=== PATIENT | male | born 1945 | race Caucasian/White ===

== ENCOUNTER → 2016-09-27 | Outpatient (CLI) | payer OTHER | END | disposition home or self-care (01) | LOC: MW.CHNEURO 10:24 | PROVIDERS: ATTEND Psychiatry & Neurology Neuromuscular Medicine | DX: E11.42 Type 2 diabetes mellitus with diabetic polyneuropathy (principal) | CPT/HCPCS: 36415; 82607 ==

== ENCOUNTER 2016-11-02 17:21 | Emergency (ER) | payer OTHER ==
[2016-11-02 17:45] VITALS: BP 140/66
[2016-11-02] MEDS ORDERED: Sodium Chloride 0.9% 1,000 ML IV ONE (18:03)
--- NOTE | 2016-11-02 18:23 | EDM.PDOC ---
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 Negative for costovertebral tenderness. Pelvis: Stable nontender. Genitourinary: Deferred. Rectal: Deferred. Extremities: Left foot has a third and fourth digit with excoriated areas over the malar and distally there is no appreciable discoloration between the digits . Second digit amputation noted Neuro: Awake, alert, oriented. Diagnostics: CBC CMP blood culture x2 CRP x-ray left foot Therapeutics: Vancomycin 1 g IV Impression: #1 diabetic foot Definitive disposition and diagnosis as appropriate pending reevaluation and review of above. Left Feet Pain Score (Numeric/FACES): 0 - Related Data Allergies Allergy/AdvReac Type Severity Reaction Status Date / Time cefaclor [From [facility]] Allergy Rash Verified 11/02/16 17:39 Home Meds: Home Meds Aspirin 325 mg PO DAILY 01/26/15 [History] Atenolol 25 mg PO DAILY 01/26/15 [History] Cholecalciferol (Vitamin D3) [Vitamin D3] 3,000 unit PO DAILY 01/26/15 [History] Clopidogrel [Plavix] 75 mg PO DAILY 01/26/15 [History] Hydrochlorothiazide 25 mg PO DAILY 01/26/15 [History] Insulin Glarg,Human.Rec.Analog [LantUS Solostar] 50 units SUBCUT BID 01/26/15 [ History] Lisinopril 20 mg PO BID 01/26/15 [History] Multivitamin [Daily Multiple Vitamin] 1 tab PO DAILY 01/26/15 [History] Coalgate-3 Fatty Acids [Coalgate-3] 1,000 mg PO DAILY 01/26/15 [History] glyBURIDE [Glyburide] 5 mg PO DAILY 01/26/15 [History] metFORMIN [Glucophage] 1,000 mg PO BIDMEALS 01/26/15 [History] Past Medical History HEENT History: Reports: Impaired Vision Cardiovascular History: Reports: Hypertension Other Cardiovascular History: cardiac ablation therapy Respiratory History: Reports: None Gastrointestinal History: Reports: None Genitourinary History: Reports: None Musculoskeletal History: Reports: Amputation Other Musculoskeletal History: left second toe Neurological History: Reports: Neuropathy, Diabetic Psychiatric History: Reports: None Endocrine/Metabolic History: Reports: Diabetes, Type II Hematologic History: Reports: None Oncologic (Cancer) History: Reports: None - Infectious Disease History Infectious Disease History: Reports: None - Past Surgical History Head Surgeries/Procedures: Reports: None Social & Family History - Family History Family Medical History: Noncontributory - Tobacco Use Smoking Status *Q: Former Smoker Used Tobacco, but Quit: No Month Tobacco Last Used: 1999 - Caffeine Use Caffeine Use: Reports: Coffee - Recreational Drug Use Recreational Drug Use: No Review of Systems - Review of Systems Review Of Systems: ROS reveals no pertinent complaints other than HPI. Trauma Exam - Physical Exam Exam: See Below (See dictation) Course - Vital Signs Text/Narrative:: Lengthy discussion regarding all options under the current circumstances and with the resource availability and prior history [facility] patient opts for discharge and will proceed by private vehicle with family to [facility]. Last Recorded V/S: Last Vital Signs Temp 37.0 C 11/02/16 17:44 Pulse 68 11/02/16 17:44 Resp 20 11/02/16 17:44 BP 140/66 11/02/16 17:44 Pulse Ox 96 11/02/16 17:44 - Orders/Labs/Meds Orders: Active Orders 24 hr Category Date Time Status Foot 2V Lt [CR] Stat Exams 11/02/16 18:03 Taken C-REACTIVE PROTEIN [CHEM] Stat Lab 11/02/16 18:14 Received COMPREHENSIVE METABOLIC PN,CMP [CHEM] Stat Lab 11/02/16 18:14 Received CULTURE BLOOD [BC] Stat Lab 11/02/16 18:14 Results CULTURE BLOOD [BC] Stat Lab 11/02/16 18:22 Received Sodium Chloride 0.9% [Normal Saline] 1,000 ml Med 11/02/16 18:03 Active IV STAT Vancomycin [Vancocin] 1 gm Med 11/02/16 18:03 Active Sodium Chloride 0.9% [Normal Saline] 250 ml IV ONETIME Blood Culture x2 Reflex Set [OM.PC] Stat Oth 11/02/16 18:03 Ordered Medication Orders Sodium Chloride (Normal Saline) 1,000 mls @ 999 mls/hr IV STAT ONE Stop: 11/02/16 19:03 Last Infusion: 11/02/16 18:18 Dose: 300 mls/hr Admin: 11/02/16 18:15 Dose: 999 mls/hr Vancomycin HCl 1 gm/ Sodium (Chloride) 250 mls @ 250 mls/hr IV ONETIME ONE Stop: 11/02/16 19:02 Last Admin: 11/02/16 18:15 Dose: 250 mls/hr Labs: Laboratory Tests 11/02/16 Range/Units 18:14 WBC 12.94 H (4.0-11.0) K/uL RBC 4.62 (4.50-5.90) M/uL Hgb 13.7 (13.0-17.0) g/dL Hct 41.1 (38.0-50.0) % MCV 89.0 (80.0-98.0) fL MCH 29.7 (27.0-32.0) pg MCHC 33.3 (31.0-37.0) g/dL RDW Std Deviation 46.3 (28.0-62.0) fl RDW Coeff of Brian 14 (11.0-15.0) % Plt Count 263 (150-400) K/uL MPV 10.00 (7.40-12.00) fL Neut % (Auto) 58.9 (48.0-80.0) % Lymph % (Auto) 33.1 (16.0-40.0) % [place] % (Auto) 6.3 (0.0-15.0) % Eos % (Auto) 1.5 (0.0-7.0) % Baso % (Auto) 0.2 (0.0-1.5) % Neut # (Auto) 7.6 H (1.4-5.7) K/uL Lymph # (Auto) 4.3 H (0.6-2.4) K/uL [place] # (Auto) 0.8 (0.0-0.8) K/uL Eos # (Auto) 0.2 (0.0-0.7) K/uL Baso # (Auto) 0.0 (0.0-0.1) K/uL Nucleated RBC % 0.0 /100WBC Nucleated RBCs # 0 K/uL Meds: Medications Generic Name Dose Route Start Last Admin Trade Name Yen PRN Reason Stop Dose Admin Sodium Chloride 1,000 mls @ 999 mls/hr 11/02/16 18:03 11/02/16 18:18 Normal Saline IV 11/02/16 19:03 300 mls/hr STAT ONE Infusion Vancomycin HCl 1 gm/ Sodium 250 mls @ 250 mls/hr 11/02/16 18:03 11/02/16 18: 15 Chloride IV 11/02/16 19:02 250 mls/hr ONETIME ONE Administration Departure - Departure Time of Disposition: 18:48 Disposition: Home, Self-Care 01 Condition: undetermined Clinical Impression: Diabetic foot - Discharge Information Forms: ED Department Discharge Additional Instructions: The following information is given to patients seen in the emergency department who are being discharged to home. This information is to outline your options for follow-up care. We provide all patients seen in our emergency department with a follow-up referral. The need for follow-up, as well as the timing and circumstances, are variable depending upon the specifics of your emergency department visit. If you don't have a primary care physician on staff, we will provide you with a referral. We always advise you to contact your personal physician following an emergency department visit to inform them of the circumstance of the visit and for follow-up with them and/or the need for any referrals to a consulting specialist. The emergency department will also refer you to a specialist when appropriate. This referral assures that you have the opportunity for followup care with a specialist. All of these measure are taken in an effort to provide you with optimal care, which includes your followup. Under all circumstances we always encourage you to contact your private physician who remains a resource for coordinating your care. When calling for followup care, please make the office aware that this follow-up is from your recent emergency room visit. If for any reason you are refused follow-up, please contact the [facility] emergency department at and asked to speak to the emergency department charge nurse. Proceed to [facility] as requested as discussed - My Orders Last 24 Hours: My Active Orders 11/02/16 18:03 Foot 2V Lt [CR] Stat Sodium Chloride 0.9% [Normal Saline] 1,000 ml IV STAT Vancomycin [Vancocin] 1 gm Sodium Chloride 0.9% [Normal Saline] 250 ml IV ONETIME Blood Culture x2 Reflex Set [OM.PC] Stat 11/02/16 18:14 C-REACTIVE PROTEIN [CHEM] Stat COMPREHENSIVE METABOLIC PN,CMP [CHEM] Stat CULTURE BLOOD [BC] Stat 11/02/16 18:22 CULTURE BLOOD [BC] Stat - Assessment/Plan Last 24 Hours: My Active Orders 11/02/16 18:03 Foot 2V Lt [CR] Stat Sodium Chloride 0.9% [Normal Saline] 1,000 ml IV STAT Vancomycin [Vancocin] 1 gm Sodium Chloride 0.9% [Normal Saline] 250 ml IV ONETIME Blood Culture x2 Reflex Set [OM.PC] Stat 11/02/16 18:14 C-REACTIVE PROTEIN [CHEM] Stat COMPREHENSIVE METABOLIC PN,CMP [CHEM] Stat CULTURE BLOOD [BC] Stat 11/02/16 18:22 CULTURE BLOOD [BC] Stat
[2016-11-02 18:50] LABS: CHLORIDE,CL 104 mmol/L (98-110); SODIUM,NA 140 mmol/L (136-146)
--- NOTE | 2016-11-06 10:09 | CR ---
EXAM DATE: 11/02/16 PATIENT'S AGE: 71 Patient: DASIA OROURKE Facility: [place], [place] Site . Site : 1945 Study: XRay Extremity Left foot [id number]/26/2017 6:32:14 PM Ordering Physician: Fausto Jasmine Final Report: INDICATION: Pain. Cannot feel part of his foot. COMPARISON: None. FINDINGS/IMPRESSION: Left foot, 2 views. No acute fracture identified. Status post amputation of the left 2nd toe at the level of the metatarsal neck. 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 No definite radiographic evidence of osteomyelitis. Diffuse mild soft tissue swelling. Small plantar calcaneal spur. Atherosclerotic vascular calcifications in the soft tissues. Dictated by Michael Hernández MD @ 11/02/2016 7:07:26 PM Dictated by: Michael Hernández MD @ 11/02/2016 19:08:10 (Electronic Signature) Report Signed by Proxy. SHEYLA
== END 2016-11-02 20:16 | disposition home or self-care (01) ==
LOC: MW.ED 17:21
DX: E11.621 Type 2 diabetes mellitus with foot ulcer (principal); L97.529 Non-pressure chronic ulcer of other part of left foot with unspecified severity; I10 Essential (primary) hypertension; Z79.82 Long term (current) use of aspirin; Z79.4 Long term (current) use of insulin; Z79.84 Long term (current) use of oral hypoglycemic drugs; Z89.022 Acquired absence of left finger(s); E11.40 Type 2 diabetes mellitus with diabetic neuropathy, unspecified
CPT/HCPCS: 36415; 73620; 80053; 85025; 86140; 87040; 96361; 96365; 99283; J3370; J7040; J7050; 99284

== ENCOUNTER 2017-09-02 07:34 | Day surgery (SDC) | payer OTHER ==
[~2017-09-02 07:34] MED LIST: Lactated Ringers 1,000 ML IV SCH
[2017-09-02] MEDS ORDERED: Propofol 200 MG/20 ML SDV ONE ×2 (07:40→09:21)
[2017-09-02] MEDS ORDERED: Lidocaine 2% 5 ML SDV ONE (07:40)
--- NOTE | 2017-09-02 08:16 | PCM.PREANE ---
Preanesthetic Assessment - Anesthesia/Transfusion/Family Hx Anesthesia History: Prior Anesthesia Without Reaction Other Type of Anesthesia Reaction Comment: states he "is hard to wake" Family History of Anesthesia Reaction: No Transfusion History: No Prior Transfusion(s) Intubation History: Unknown - Review of Systems General: No Symptoms, Night Sweats Cardiovascular: No Symptoms Gastrointestinal: Constipation Neurological: No Symptoms Other: Reports: None - Physical Assessment Height: 1.88 m Weight: 135.624 kg ASA Class: 3 Mental Status: Alert & Oriented x3 Airway Class: Mallampati = 2 Dentition: Reports: [place](s) (multiple upper front) Thyro-Mental Finger Breadths: 3 Mouth Opening Finger Breadths: 3 ROM/Head Extension: Limited/Partial Lungs: Clear to Auscultation, Normal Respiratory Effort Cardiovascular: Regular Rate, Regular Rhythm - Allergies Allergies/Adverse Reactions: Allergies Allergy/AdvReac Type Severity Reaction Status Date / Time cefaclor [From Ceclor] Allergy Rash Verified 08/28/17 08:15 - Blood Blood Available: No - Anesthesia Plan Pre-Op Medication Ordered: None - Acknowledgements Anesthesia Type Planned: MAC Pt an Appropriate Candidate for the Planned Anesthesia: Yes Alternatives and Risks of Anesthesia Discussed w Pt/Guardian: Yes Pt/Guardian Understands and Agrees with Anesthesia Plan: Yes PreAnesthesia Questionnaire HEENT History: Reports: Glaucoma, Impaired Vision, Other (See Below) Other HEENT History: wears glasses Cardiovascular History: Reports: Afib (on and off (h/o ablation)), CAD, High Cholesterol, Hypertension, [place], Stents (x4, last one in '08) Respiratory History: Reports: Sleep Apnea Other Respiratory History: does not use CPAP Gastrointestinal History: Reports: Colon Polyp, GERD, Helicobacter Pylori Genitourinary History: Reports: None Musculoskeletal History: Reports: Amputation, Back Pain, Chronic (with left radicular pain and occasional loss of motor control over left leg), Osteoarthritis Other Musculoskeletal History: amputation of left second toe, recurrent osteomyelitis left foot Neurological History: Reports: Neuropathy, Diabetic Psychiatric History: Reports: None Endocrine/Metabolic History: Reports: Diabetes, Type II, Obesity/BMI 30+ (BMI 38.4) Hematologic History: Reports: None Oncologic (Cancer) History: Reports: None - Infectious Disease History Infectious Disease History: Reports: None - Past Surgical History Head Surgeries/Procedures: Reports: None HEENT Surgical History: Reports: Cataract Surgery Cardiovascular Surgical History: Reports: Cardiac Ablation, Coronary Artery Bypass (CABG x3 in ), Coronary Artery Stent (x4 last one in ) GI Surgical History: Reports: Colonoscopy (3-4 years ago) Musculoskeletal Surgical History: Reports: Arthroscopic Knee Other Musculoskeletal Surgeries/Procedures:: hx left foot surgery due to infection ( toe amputation ) - SUBSTANCE USE Smoking Status *Q: Former Smoker Recreational Drug Use History: No - HOME MEDS Home Medications: Home Meds Aspirin 325 mg PO DAILY 01/26/15 [History] Atenolol 50 mg PO BID 01/26/15 [History] Clopidogrel [Plavix] 75 mg PO DAILY 01/26/15 [History] Hydrochlorothiazide 25 mg PO DAILY 01/26/15 [History] Lisinopril 20 mg PO BID 01/26/15 [History] Cyclobenzaprine HCl 10 mg PO ASDIRECTED PRN 08/28/17 [History] Diclofenac Sodium [Voltaren] 75 mg PO BID PRN 08/28/17 [History] Doxycycline Monohydrate 100 mg PO ASDIRECTED PRN 08/28/17 [History] Garlic [Garlic Oil] 1,000 mg PO ASDIRECTED PRN 08/28/17 [History] Insulin Glargine,Hum.Rec.Anlog [Lantus Solostar] 50 units SUBCUT BID 08/28/17 [ History] Latanoprost [Xalatan 0.005% Ophth Soln] 1 drop EYEBOTH BEDTIME 08/28/17 [History ] Multivitamin [Multivitamins] 1 tab PO DAILY 08/28/17 [History] Naproxen Sodium [Naproxen Sodium ER] 1 tab PO BID PRN 08/28/17 [History] Nitroglycerin 0.4 mg SL ASDIRECTED PRN 08/28/17 [History] Omeprazole 20 mg PO DAILY PRN 08/28/17 [History] Saxagliptin HCl [Onglyza] 5 mg PO DAILY 08/28/17 [History] Simvastatin 40 mg PO BEDTIME 08/28/17 [History] metFORMIN HCl [Metformin HCl] 1,000 mg PO BID 08/28/17 [History] traMADol HCl [Ultram] 50 mg PO ASDIRECTED PRN 08/28/17 [History] - CURRENT (IN HOUSE) MEDS Current Meds: Current Medications Lactated Ringer's (Ringers, Lactated) 1,000 mls @ 125 mls/hr IV ASDIRECTED DAVID Last Admin: 09/02/17 07:55 Dose: 125 mls/hr Discontinued Medications Lidocaine (Xylocaine-Mpf 2%) Confirm Administered Dose 5 ml .ROUTE .STK-MED ONE Stop: 09/02/17 07:41 Propofol (Diprivan 20 Ml) Confirm Administered Dose 400 mg .ROUTE .STK-MED ONE Stop: 09/02/17 07:41
[2017-09-02] MEDS ORDERED: Ondansetron 4 MG Tab.DIS PO PRN (09:50)
--- NOTE | 2017-09-02 09:54 | PCM.OPNOTE ---
- General Post-Op/Procedure Note Date of Surgery/Procedure: 09/02/17 Operative Procedure(s): Colonoscopy Pre Op Diagnosis: Change in bowel habits. Personal history of colon polyps Post-Op Diagnosis: Mild sigmoid diverticulosis Anesthesia Technique: MAC (ASA III) Primary Surgeon: Bladimir Tanner [employer] Field Supervisor: Yoni Talley Condition: Good Free Text/Narrative:: Dictation [id number] CPT CODE 40781
[2017-09-02] MEDS ORDERED: Lactated Ringers 1,000 ML IV SCH (10:00)
--- NOTE | 2017-09-02 10:20 | PCM48HPAN ---
Post Anesthesia Note - EVALUATION WITHIN 48HRS OF ANESTHETIC Vital Signs in Normal Range: Yes Patient Participated in Evaluation: Yes Respiratory Function Stable: Yes Airway Patent: Yes Cardiovascular Function Stable: Yes Hydration Status Stable: Yes Pain Control Satisfactory: Yes Nausea and Vomiting Control Satisfactory: Yes Mental Status Recovered: Yes Resp Rate: 16 - COMMENTS/OBSERVATIONS Free Text/Narrative:: No anesthesia problems, patient skipped recovery room phase of postoperative care.
[2017-09-02 11:32] VITALS: BP 119/57
--- NOTE | 2017-09-02 12:18 | OR ---
SURGEON: Bladimir Tanner M.D. DATE OF PROCEDURE: 09/02/2017 OPERATION PERFORMED: Colonoscopy. SERVICES DELIVERY DRIVER: Dr. Talley, PGY3. ANESTHESIA: MAC. ASA CLASSIFICATION: III. PREOPERATIVE DIAGNOSES: 1. Change in bowel habits. 2. Personal history of colon polyps. POSTOPERATIVE DIAGNOSIS: Mild diverticulosis. DESCRIPTION OF PROCEDURE: The patient was taken to the endoscopy room and positioned on the endoscopy table in the left lateral decubitus position. Time-out was called for appropriate identification of the patient and procedure. Monitored anesthesia care was provided. The colonoscope was inserted into the rectum and advanced with moderate difficulty to the cecum. Despite multiple maneuvers, we were never able to retroflex the colonoscope in the cecum. The cecum was identified by internal landmarks and external pressure. The colonoscope was then slowly withdrawn. The cecum, ascending colon, hepatic flexure, transverse colon, splenic flexure, and descending colon showed no tumors, polyps, diverticula, or angiodysplastic changes. A few small scattered diverticula were noted in the sigmoid colon. No stricture, spasm, or bleeding was noted. The colonoscope was withdrawn to the rectum and retroflexed to visualize the anal orifice from above. Again, no tumors or polyps were seen and there were no acute hemorrhoidal changes. The colonoscope was then straightened, the rectum aspirated, and the colonoscope removed. The patient tolerated the procedure well and was taken back to his room in stable condition. SEBAS / HENRIQUE /[id number]
== END 2017-09-02 10:10 | disposition home or self-care (01) ==
LOC: MW.SDS 07:34
PROVIDERS: ATTEND Surgery
DX: K57.30 Diverticulosis of large intestine without perforation or abscess without bleeding (principal); E11.42 Type 2 diabetes mellitus with diabetic polyneuropathy; E11.621 Type 2 diabetes mellitus with foot ulcer; L97.529 Non-pressure chronic ulcer of other part of left foot with unspecified severity; I25.10 Atherosclerotic heart disease of native coronary artery without angina pectoris; G47.30 Sleep apnea, unspecified; Z79.4 Long term (current) use of insulin; Z79.82 Long term (current) use of aspirin; Z79.899 Other long term (current) drug therapy; Z86.010 Personal history of colon polyps; Z88.1 Allergy status to other antibiotic agents; Z87.891 Personal history of nicotine dependence
CPT/HCPCS: 45378; J7120; J2704

== ENCOUNTER 2019-08-25 22:56 | Observation (INO) | payer OTHER ==
[2019-08-25] MEDS: Nitroglycerin 0.4 MG Tab.SL SL PRN ×2 (23:17→23:22)
--- NOTE | 2019-08-25 23:18 | EDM.PDOC ---
ED HPI GENERAL MEDICAL PROBLEM - General Chief Complaint: Chest Pain Stated Complaint: HIGH BLOOD PRESSURE/CHEST PAIN Time Seen by Provider: 08/25/19 23:02 Source of Information: Reports: Patient History Limitations: Reports: No Limitations - History of Present Illness INITIAL COMMENTS - FREE TEXT/NARRATIVE: HISTORY OF PRESENT ILLNESS: Patient is a 74-year-old male with history of diabetes, hypertension, hyperlipidemia, status post CABG x3, stents x4 who presents to the ER for complaints of elevated blood pressure by home reading, headache and chest pain. Patient has left lateral chest wall pain which she rates as 4-5 out of 10 in severity, intermittent in nature. Pain has been going on for months but was worse tonight. Has associated dyspnea. Denies any history of CHF or COPD. Patient is on Lasix. Denies any nausea vomiting or diaphoresis. No abdominal pain. Denies any blurred vision, slurred speech, weakness or paresthesias. Headache is not the first or the worst. Is similar to when he has had high blood pressure in the past. Fever or neck stiffness. Denies any rash. States he already took aspirin 324 mg today. Has family history of CAD. REVIEW OF SYSTEMS: Other than the symptoms associated with the present events, the following is reported with regard to recent health: General: (-) fever. HENT: (-) congestion. Respiratory: (-) cough. Cardiovascular: (+) chest pain. GI: (-) abdominal pain. : (-) urinary complaints. Musculoskeletal: (-) other aches or pains. Endocrine: (+) DM Neurological: (-) localized weakness. Skin: (-) rash PAST MEDICAL HISTORY: reviewed as per nursing notes SOCIAL HISTORY: reviewed as per nursing notes, MEDICATIONS: Per nurse's note ALLERGIES: Per nurse's note, reviewed by me PHYSICAL EXAMINATION: GENERALIZED APPEARANCE: well developed, well nourished in no distress VITAL SIGNS: Per nurse's note, reviewed by me SKIN: Warm, dry; (-) cyanosis; (-) rash. HEAD: (-) scalp swelling, (-) tenderness. EYES: (-) conjunctival pallor, (-) scleral icterus. ENMT: (-) stridor; mucous membranes moist. NECK: (-) tenderness, (-) stiffness, CHEST AND RESPIRATORY: (-) rales, (-) rhonchi, (-) wheezes; breath sounds equal bilaterally. HEART AND CARDIOVASCULAR: (-) irregularity; (-) murmur, (-) gallop. ABDOMEN AND GI: Soft; (-) tenderness, (-) guarding, (-) rebound, (-) palpable masses, EXTREMITIES: (-) deformity, (-) edema. NEURO AND PSYCH: Alert. Cranial nerves grossly intact; strength symmetric. NIHSS= 0 DIAGNOSTICS: EKG: sr at 60 bpm. nml axis. rbbb. no st elevation. CXR: as read by radiologist, reviewed by myself Labs ordered and reviewed. EMERGENCY DEPARTMENT COURSE AND TREATMENT: Patient's condition remained stable during Emergency Department evaluation. Patient already took ASA. Given NTG for chest pain as well as for HTN. BP improved to 149/62 and patient states he feels significantly better. Labs and diagnostics ordered. First troponin wnl. Pt with moderate risk HEART score, will require admission. Case d/w Dr. Clayton who kindly agrees to admit. PLAN AND FOLLOW-UP: admit - Related Data Allergies Allergy/AdvReac Type Severity Reaction Status Date / Time cefaclor [From Ceclor] Allergy Rash Verified 08/28/17 08:15 Home Meds: Home Meds Aspirin 325 mg PO DAILY 01/26/15 [History] Clopidogrel [Plavix] 75 mg PO DAILY 01/26/15 [History] Hydrochlorothiazide 25 mg PO DAILY 01/26/15 [History] Lisinopril 20 mg PO BID 01/26/15 [History] atenoloL [Atenolol] 50 mg PO BID 01/26/15 [History] Cyclobenzaprine HCl 10 mg PO ASDIRECTED PRN 08/28/17 [History] Diclofenac Sodium [Voltaren] 75 mg PO BID PRN 08/28/17 [History] Doxycycline Monohydrate 100 mg PO ASDIRECTED PRN 08/28/17 [History] Garlic [Garlic Oil] 1,000 mg PO ASDIRECTED PRN 08/28/17 [History] Insulin Glargine,Hum.Rec.Anlog [Lantus Solostar] 50 units SUBCUT BID 08/28/17 [ History] Latanoprost [Xalatan 0.005% Ophth Soln] 1 drop EYEBOTH BEDTIME 08/28/17 [History ] Multivitamin [Multivitamins] 1 tab PO DAILY 08/28/17 [History] Naproxen Sodium [Naproxen Sodium ER] 1 tab PO BID PRN 08/28/17 [History] Nitroglycerin 0.4 mg SL ASDIRECTED PRN 08/28/17 [History] Omeprazole 20 mg PO DAILY PRN 08/28/17 [History] Saxagliptin HCl [Onglyza] 5 mg PO DAILY 08/28/17 [History] Simvastatin 40 mg PO BEDTIME 08/28/17 [History] metFORMIN HCl [Metformin HCl] 1,000 mg PO BID 08/28/17 [History] traMADol HCl [Ultram] 50 mg PO ASDIRECTED PRN 08/28/17 [History] Past Medical History HEENT History: Reports: Glaucoma, Impaired Vision, Other (See Below) Other HEENT History: wears glasses Cardiovascular History: Reports: Afib, CAD, High Cholesterol, Hypertension, DC, Stents Respiratory History: Reports: Sleep Apnea Other Respiratory History: does not use CPAP Gastrointestinal History: Reports: Colon Polyp, GERD, Helicobacter Pylori Genitourinary History: Reports: None Musculoskeletal History: Reports: Amputation, Back Pain, Chronic, Osteoarthritis Other Musculoskeletal History: amputation of left second toe, recurrent osteomyelitis left foot Neurological History: Reports: Neuropathy, Diabetic Psychiatric History: Reports: None Endocrine/Metabolic History: Reports: Diabetes, Type II, Obesity/BMI 30+ Hematologic History: Reports: None Oncologic (Cancer) History: Reports: None - Infectious Disease History Infectious Disease History: Reports: None - Past Surgical History Head Surgeries/Procedures: Reports: None HEENT Surgical History: Reports: Cataract Surgery Cardiovascular Surgical History: Reports: Cardiac Ablation, Coronary Artery Bypass, Coronary Artery Stent GI Surgical History: Reports: Colonoscopy Musculoskeletal Surgical History: Reports: Amputation, Arthroscopic Knee Other Musculoskeletal Surgeries/Procedures:: hx left foot surgery due to infection ( toe amputation ). amputation second left toe Social & Family History - Family History Family Medical History: Noncontributory - Caffeine Use Caffeine Use: Reports: Coffee ED ROS GENERAL - Review of Systems Review Of Systems: See Below (see dictation) ED EXAM, GENERAL - Physical Exam Exam: See Below (see dictation) Course - Vital Signs Last Recorded V/S: Last Vital Signs Temp 97.8 F 08/25/19 23:04 Pulse 60 08/25/19 23:27 Resp 18 08/25/19 23:04 BP 149/62 H 08/25/19 23:27 Pulse Ox 97 08/25/19 23:04 - Orders/Labs/Meds Orders: Active Orders 24 hr Category Date Time Status Admission Status [Patient Status] [ADT] Stat ADT 08/26/19 00:08 Active Cardiac Monitoring [RC] . DIRECTED Care 08/25/19 23:07 Active EKG Documentation Completion [RC] STAT Care 08/25/19 23:07 Active UA W/MICROSCOPIC [URIN] Stat Lab 08/26/19 00:03 Results Nitroglycerin [Nitrostat] Med 08/25/19 23:12 Active 0.4 mg SL Q5M PRN Medication Orders Nitroglycerin (Nitrostat) 0.4 mg SL Q5M PRN PRN Reason: Chest Pain Last Admin: 08/25/19 23:22 Dose: 0.4 mg Admin: 08/25/19 23:17 Dose: 0.4 mg Labs: Laboratory Tests 08/25/19 08/25/19 08/25/19 Range/Units 23:00 23:00 23:00 WBC 11.51 H (4.0-11.0) K/uL RBC 4.89 (4.50-5.90) M/uL Hgb 14.6 (13.0-17.0) g/dL Hct 44.0 (38.0-50.0) % MCV 90.0 (80.0-98.0) fL MCH 29.9 (27.0-32.0) pg MCHC 33.2 (31.0-37.0) g/dL RDW Std Deviation 46.8 (28.0-62.0) fl RDW Coeff of Brian 14 (11.0-15.0) % Plt Count 243 (150-400) K/uL MPV 9.70 (7.40-12.00) fL Neut % (Auto) 51.5 (48.0-80.0) % Lymph % (Auto) 37.7 (16.0-40.0) % Elbert % (Auto) 7.8 (0.0-15.0) % Eos % (Auto) 2.7 (0.0-7.0) % Baso % (Auto) 0.3 (0.0-1.5) % Neut # (Auto) 5.9 H (1.4-5.7) K/uL Lymph # (Auto) 4.3 H (0.6-2.4) K/uL Elbert # (Auto) 0.9 H (0.0-0.8) K/uL Eos # (Auto) 0.3 (0.0-0.7) K/uL Baso # (Auto) 0.0 (0.0-0.1) K/uL Nucleated RBC % 0.0 /100WBC Nucleated RBCs # 0 K/uL INR 0.96 Sodium 139 (136-148) mmol/L Potassium 4.3 (3.5-5.1) mmol/L Chloride 102 (98-107) mmol/L Carbon Dioxide 27.5 (21.0-32.0) mmol/L BUN 30 H (7.0-18.0) mg/dL Creatinine 1.3 (0.8-1.3) mg/dL Est Cr Clr Drug Dosing 56.34 mL/min Estimated GFR (MDRD) 54.0 ml/min Glucose 271 H (74-106) mg/dL POC Glucose (60-110) mg/dL Calcium 9.0 (8.5-10.1) mg/dL Total Bilirubin 0.2 (0.2-1.0) mg/dL AST 21 (15-37) IU/L ALT 30 (14-63) IU/L Alkaline Phosphatase 74 (46-116) U/L Troponin I < 0.050 (0.000-0.056) ng/mL B-Natriuretic Peptide (<100) PG/ML Total Protein 7.3 (6.4-8.2) g/dL Albumin 3.4 (3.4-5.0) g/dL Globulin 3.9 (2.6-4.0) g/dL Albumin/Globulin Ratio 0.9 (0.9-1.6) Urine Color Urine Appearance Urine pH (5.0-8.0) Ur Specific [place] (1.001-1.035) Urine Protein (NEGATIVE) mg/dL Urine Glucose (UA) (NEGATIVE) mg/dL Urine Ketones (NEGATIVE) mg/dL Urine Occult Blood (NEGATIVE) Urine Nitrite (NEGATIVE) Urine Bilirubin (NEGATIVE) Urine Urobilinogen (<2.0) EU/dL Ur Leukocyte Esterase (NEGATIVE) Ketones (NEG) 08/25/19 08/25/19 08/25/19 Range/Units 23:00 23:00 23:04 WBC (4.0-11.0) K/uL RBC (4.50-5.90) M/uL Hgb (13.0-17.0) g/dL Hct (38.0-50.0) % MCV (80.0-98.0) fL MCH (27.0-32.0) pg MCHC (31.0-37.0) g/dL RDW Std Deviation (28.0-62.0) fl RDW Coeff of Brian (11.0-15.0) % Plt Count (150-400) K/uL MPV (7.40-12.00) fL Neut % (Auto) (48.0-80.0) % Lymph % (Auto) (16.0-40.0) % Elbert % (Auto) (0.0-15.0) % Eos % (Auto) (0.0-7.0) % Baso % (Auto) (0.0-1.5) % Neut # (Auto) (1.4-5.7) K/uL Lymph # (Auto) (0.6-2.4) K/uL Elbert # (Auto) (0.0-0.8) K/uL Eos # (Auto) (0.0-0.7) K/uL Baso # (Auto) (0.0-0.1) K/uL Nucleated RBC % /100WBC Nucleated RBCs # K/uL INR Sodium (136-148) mmol/L Potassium (3.5-5.1) mmol/L Chloride (98-107) mmol/L Carbon Dioxide (21.0-32.0) mmol/L BUN (7.0-18.0) mg/dL Creatinine (0.8-1.3) mg/dL Est Cr Clr Drug Dosing mL/min Estimated GFR (MDRD) ml/min Glucose (74-106) mg/dL POC Glucose 252 H (60-110) mg/dL Calcium (8.5-10.1) mg/dL Total Bilirubin (0.2-1.0) mg/dL AST (15-37) IU/L ALT (14-63) IU/L Alkaline Phosphatase (46-116) U/L Troponin I (0.000-0.056) ng/mL B-Natriuretic Peptide 60 (<100) PG/ML Total Protein (6.4-8.2) g/dL Albumin (3.4-5.0) g/dL Globulin (2.6-4.0) g/dL Albumin/Globulin Ratio (0.9-1.6) Urine Color Urine Appearance Urine pH (5.0-8.0) Ur Specific [place] (1.001-1.035) Urine Protein (NEGATIVE) mg/dL Urine Glucose (UA) (NEGATIVE) mg/dL Urine Ketones (NEGATIVE) mg/dL Urine Occult Blood (NEGATIVE) Urine Nitrite (NEGATIVE) Urine Bilirubin (NEGATIVE) Urine Urobilinogen (<2.0) EU/dL Ur Leukocyte Esterase (NEGATIVE) Ketones NEGATIVE (NEG) 08/26/19 Range/Units 00:03 WBC (4.0-11.0) K/uL RBC (4.50-5.90) M/uL Hgb (13.0-17.0) g/dL Hct (38.0-50.0) % MCV (80.0-98.0) fL MCH (27.0-32.0) pg MCHC (31.0-37.0) g/dL RDW Std Deviation (28.0-62.0) fl RDW Coeff of Brian (11.0-15.0) % Plt Count (150-400) K/uL MPV (7.40-12.00) fL Neut % (Auto) (48.0-80.0) % Lymph % (Auto) (16.0-40.0) % Elbert % (Auto) (0.0-15.0) % Eos % (Auto) (0.0-7.0) % Baso % (Auto) (0.0-1.5) % Neut # (Auto) (1.4-5.7) K/uL Lymph # (Auto) (0.6-2.4) K/uL Elbert # (Auto) (0.0-0.8) K/uL Eos # (Auto) (0.0-0.7) K/uL Baso # (Auto) (0.0-0.1) K/uL Nucleated RBC % /100WBC Nucleated RBCs # K/uL INR Sodium (136-148) mmol/L Potassium (3.5-5.1) mmol/L Chloride (98-107) mmol/L Carbon Dioxide (21.0-32.0) mmol/L BUN (7.0-18.0) mg/dL Creatinine (0.8-1.3) mg/dL Est Cr Clr Drug Dosing mL/min Estimated GFR (MDRD) ml/min Glucose (74-106) mg/dL POC Glucose (60-110) mg/dL Calcium (8.5-10.1) mg/dL Total Bilirubin (0.2-1.0) mg/dL AST (15-37) IU/L ALT (14-63) IU/L Alkaline Phosphatase (46-116) U/L Troponin I (0.000-0.056) ng/mL B-Natriuretic Peptide (<100) PG/ML Total Protein (6.4-8.2) g/dL Albumin (3.4-5.0) g/dL Globulin (2.6-4.0) g/dL Albumin/Globulin Ratio (0.9-1.6) Urine Color YELLOW Urine Appearance CLEAR Urine pH 6.0 (5.0-8.0) Ur Specific [place] 1.025 (1.001-1.035) Urine Protein NEGATIVE (NEGATIVE) mg/dL Urine Glucose (UA) 250 H (NEGATIVE) mg/dL Urine Ketones NEGATIVE (NEGATIVE) mg/dL Urine Occult Blood TRACE-LYSED H (NEGATIVE) Urine Nitrite NEGATIVE (NEGATIVE) Urine Bilirubin NEGATIVE (NEGATIVE) Urine Urobilinogen 0.2 (<2.0) EU/dL Ur Leukocyte Esterase NEGATIVE (NEGATIVE) Ketones (NEG) Meds: Medications Generic Name Dose Route Start Last Admin Trade Name Freq PRN Reason Stop Dose Admin Nitroglycerin 0.4 mg 08/25/19 23:12 08/25/19 23:22 Nitrostat SL 0.4 mg Q5M PRN Administration Chest Pain Departure - Departure Time of Disposition: 00:07 Disposition: Refer to Observation Condition: Good Clinical Impression: Chest pain, Dyspnea, Hypertensive urgency, Diabetes - Discharge Information Referrals: [facility] [Primary Care Provider] - Forms: ED Department Discharge Sepsis Event Note - Evaluation Sepsis Screening Result: No Definite Risk - Focused Exam Vital Signs: Vital Signs Temp Pulse Resp BP BP Pulse Ox 08/25/19 23:27 60 149/62 H 08/25/19 23:22 145/70 H 08/25/19 23:17 209/92 H 08/25/19 23:04 97.8 F 62 18 198/94 H 97 Date Exam was Performed: 08/26/19 Time Exam was Performed: 00:13 - My Orders Last 24 Hours: My Active Orders 08/25/19 23:07 Cardiac Monitoring [RC] . DIRECTED EKG Documentation Completion [RC] STAT 08/25/19 23:12 Nitroglycerin [Nitrostat] 0.4 mg SL Q5M PRN 08/26/19 00:03 UA W/MICROSCOPIC [URIN] Stat 08/26/19 00:08 Admission Status [Patient Status] [ADT] Stat - Assessment/Plan Last 24 Hours: My Active Orders 08/25/19 23:07 Cardiac Monitoring [RC] . DIRECTED EKG Documentation Completion [RC] STAT 08/25/19 23:12 Nitroglycerin [Nitrostat] 0.4 mg SL Q5M PRN 08/26/19 00:03 UA W/MICROSCOPIC [URIN] Stat 08/26/19 00:08 Admission Status [Patient Status] [ADT] Stat
[2019-08-25 23:36] LABS: BLOOD UREA NITROGEN,BUN 30 mg/dL (7.0-18.0); CARBON DIOXIDE,CO2 27.5 mmol/L (21.0-32.0); CHLORIDE,CL 102 mmol/L (98-107); GLUCOSE RANDOM 271 mg/dL (74-106); POTASSIUM,K 4.3 mmol/L (3.5-5.1); SODIUM,NA 139 mmol/L (136-148)
--- NOTE | 2019-08-25 23:39 | CR ---
INDICATION: Pt w/cp, blood pressure problem. TECHNIQUE: Chest 1 view. COMPARISON: 04/13/19 FINDINGS: Cardiovascular and mediastinum: Heart size and vasculature are normal in caliber and appearance. Mediastinum is within normal limits. Lungs and pleural space: Lungs are clear. No sign of infiltrate or mass. No sign of pleural effusion. No pneumothorax. Bones and soft tissues: No significant findings. IMPRESSION: Unremarkable chest. Dictated by: Filippo Peña MD @ 08/25/2019 23:38:29 (Electronically Signed)
[2019-08-26] MEDS ORDERED: Morphine 2 MG/ML SYRINGE IVPUSH PRN (03:12)
[2019-08-26] MEDS ORDERED: Nitroglycerin 0.4 MG Tab.SL SL PRN (03:26)
[2019-08-26 05:28] LABS: HEMOGLOBIN A1C 8.1 % (4.5-6.2)
[2019-08-26 05:45] LABS: BLOOD UREA NITROGEN,BUN 28 mg/dL (7.0-18.0); CARBON DIOXIDE,CO2 33.1 mmol/L (21.0-32.0); CHLORIDE,CL 104 mmol/L (98-107); GLUCOSE RANDOM 213 mg/dL (74-106); POTASSIUM,K 4.4 mmol/L (3.5-5.1); SODIUM,NA 141 mmol/L (136-148)
[2019-08-26] MEDS: Insulin Aspart 100 Units/ML 3 ML Pen SUBCUT SCH ×2 (07:33→12:05)
--- NOTE | 2019-08-26 08:30 | PCM.HP.2 ---
H&P History of Present Illness - General Date of Service: 08/26/19 Admit Problem/Dx: Admission Diagnosis/Problem Admission Diagnosis/Problem Chest pain Source of Information: Patient History Limitations: Reports: No Limitations - History of Present Illness Initial Comments - Free Text/Narative: This 74 year old male with history of diabetes, hypertension, hyperlipidemia, status post CABG x3, stents x4 who presents to the ER for complaints of elevated blood pressure by home reading, headache and chest pain. This pain left lateral chest wall pain which he rated was 4-5 out of 10, intermittent in nature. Pain has been going on for months but was worse tonight. Has associated dyspnea, he explains it was like he could take a full breath. Denies any nausea vomiting or diaphoresis. No abdominal pain. Denies any blurred vision, slurred speech, weakness or paresthesias. Is similar to when he has had high blood pressure in the past. Fever or neck stiffness. Denies any rash. States he already took aspirin 324 mg today. Has family history of CAD. He denies CHF or COPD. He reports he has not seen a conditioner tumbler in approximately 9 months, follows with PA for care. Unsure of most recent stress test. He reports history of orthostatic hypotension and tends to get dizzy with quick movements. Daughter and him report falls at home due to this. In the mild leukocytosis noted, 11,510. BUN 30 and Cr 1.3. A1c 8.1 Trops negative. EKG SR with no acute ischemic changes. CXR negative. BP has remained controlled. At home he reports he took extra atenolol and Lisinopril when BP elevated. He will be admitted for chest pain ACS rule out. - Related Data Allergies/Adverse Reactions: Allergies Allergy/AdvReac Type Severity Reaction Status Date / Time cefaclor [From [facility]] Allergy Rash Verified 08/28/17 08:15 Home Medications: Home Meds Aspirin 325 mg PO DAILY 01/26/15 [History] Clopidogrel [Plavix] 75 mg PO BEDTIME 01/26/15 [History] Hydrochlorothiazide 25 mg PO DAILY 01/26/15 [History] Diclofenac Sodium [Voltaren] 75 mg PO BID PRN 08/28/17 [History] Insulin Glargine,Hum.Rec.Anlog [Lantus Solostar] 50 units SUBCUT BID 08/28/17 [ History] Latanoprost [Xalatan 0.005% Ophth Soln] 1 drop EYEBOTH BEDTIME 08/28/17 [History ] Multivitamin [Multivitamins] 1 tab PO DAILY 08/28/17 [History] Nitroglycerin 0.4 mg SL .Q5MIN MAX 3MTAB PRN 08/28/17 [History] Omeprazole 20 mg PO ACBREAKFAST PRN 08/28/17 [History] Simvastatin 80 mg PO BEDTIME 08/28/17 [History] metFORMIN HCl [Metformin HCl] 1,000 mg PO BID 08/28/17 [History] Albuterol [Ventolin HFA] 2 puff INH BID 08/26/19 [History] Atenolol [Tenormin] 25 mg PO BID #30 tablet 08/26/19 [Rx] Fish Oil/[place]-3 Fatty Acids [Fish Oil 1,000 MG] 1,000 cap PO BID 08/26/19 [ History] Insulin Aspart [Insulin Aspart Flexpen] 10 unit SQ TIDAC 08/26/19 [History] atenoloL [Atenolol] 25 mg PO BID #0 08/26/19 [Rx] lisinopriL [Prinivil] 40 mg PO DAILY #1 tablet 08/26/19 [Rx] Past Medical History HEENT History: Reports: Glaucoma, Impaired Vision, Other (See Below) Other HEENT History: wears glasses Cardiovascular History: Reports: Afib, CAD, High Cholesterol, Hypertension, ND, Stents Respiratory History: Reports: Sleep Apnea Other Respiratory History: does not use CPAP Gastrointestinal History: Reports: Colon Polyp, GERD, Helicobacter Pylori Genitourinary History: Reports: None Musculoskeletal History: Reports: Amputation, Back Pain, Chronic, Osteoarthritis Other Musculoskeletal History: amputation of left second toe, recurrent osteomyelitis left foot Neurological History: Reports: Neuropathy, Diabetic Psychiatric History: Reports: None Endocrine/Metabolic History: Reports: Diabetes, Type II, Obesity/BMI 30+ Hematologic History: Reports: None Oncologic (Cancer) History: Reports: None - Infectious Disease History Infectious Disease History: Reports: Chicken Pox, Measles, Mumps - Past Surgical History Head Surgeries/Procedures: Reports: None HEENT Surgical History: Reports: Cataract Surgery Cardiovascular Surgical History: Reports: Cardiac Ablation, Coronary Artery Bypass, Coronary Artery Stent GI Surgical History: Reports: Colonoscopy Musculoskeletal Surgical History: Reports: Amputation, Arthroscopic Knee, Carpal Tunnel Other Musculoskeletal Surgeries/Procedures:: hx left foot surgery due to infection ( toe amputation ). amputation second left toe Social & Family History - Family History Family Medical History: Noncontributory - Tobacco Use Smoking Status *Q: Former Smoker Used Tobacco, but Quit: Yes Month/Year Tobacco Last Used: 1979 Second Hand Smoke Exposure: No - Caffeine Use Caffeine Use: Reports: Coffee - Recreational Drug Use Recreational Drug Use: No H&P Review of Systems - Review of Systems: Review Of Systems: See Below General: Denies: Fever, Chills, Malaise, Weakness HEENT: Reports: Headaches (with BP was elevated, but now gone.). Denies: Sinus Congestion, Sore Throat, Vertigo Pulmonary: Reports: No Symptoms. Denies: Shortness of Breath, Wheezing, Cough, Sputum Cardiovascular: Reports: No Symptoms. Denies: Chest Pain, Palpitations, Orthopnea, Edema Gastrointestinal: Reports: No Symptoms. Denies: Abdominal Pain, Black Stool, Bloody Stool, Nausea, Vomiting Genitourinary: Reports: No Symptoms. Denies: Dysuria, Frequency, Burning Skin: Reports: No Symptoms Psychiatric: Reports: No Symptoms Hematologic/Lymphatic: Reports: No Symptoms Immunologic: Reports: No Symptoms Exam - Exam Exam: See Below - Vital Signs Vital Signs: Last Vital Signs Temp 96.6 F L 08/26/19 08:00 Pulse 53 L 08/26/19 08:00 Resp 17 08/26/19 08:00 BP 123/69 08/26/19 08:00 Pulse Ox 95 08/26/19 08:00 Weight: 136.94 kg - Exam Quality Assessment: No: Supplemental Oxygen, DVT Prophylaxis General: Alert, Oriented, Cooperative HEENT: Conjunctiva Clear, Mucosa Moist & [place], Posterior Pharynx Clear Lungs: Clear to Auscultation, Normal Respiratory Effort Cardiovascular: Regular Rate, Regular Rhythm, Normal S1, Normal S2 GI/Abdominal Exam: Normal Bowel Sounds, Soft, Non-Tender Back Exam: Normal Inspection, Full Range of Motion Extremities: Normal Inspection, Normal Range of Motion, Non-Tender, Pedal Edema (+1 ) Neuro Extensive - Mental Status: Alert, Oriented x3 Neuro Extensive - Motor, Sensory, Reflexes: CN II-XII Intact Psychiatric: Alert, Normal Affect, Normal Mood - Patient Data Lab Results Last 24 hrs: Laboratory Results - last 24 hr 08/25/19 08/25/19 08/25/19 Range/Units 23:00 23:00 23:00 WBC 11.51 H (4.0-11.0) K/uL RBC 4.89 (4.50-5.90) M/uL Hgb 14.6 (13.0-17.0) g/dL Hct 44.0 (38.0-50.0) % MCV 90.0 (80.0-98.0) fL MCH 29.9 (27.0-32.0) pg MCHC 33.2 (31.0-37.0) g/dL RDW Std Deviation 46.8 (28.0-62.0) fl RDW Coeff of Brian 14 (11.0-15.0) % Plt Count 243 (150-400) K/uL MPV 9.70 (7.40-12.00) fL Neut % (Auto) 51.5 (48.0-80.0) % Lymph % (Auto) 37.7 (16.0-40.0) % [place] % (Auto) 7.8 (0.0-15.0) % Eos % (Auto) 2.7 (0.0-7.0) % Baso % (Auto) 0.3 (0.0-1.5) % Neut # (Auto) 5.9 H (1.4-5.7) K/uL Lymph # (Auto) 4.3 H (0.6-2.4) K/uL [place] # (Auto) 0.9 H (0.0-0.8) K/uL Eos # (Auto) 0.3 (0.0-0.7) K/uL Baso # (Auto) 0.0 (0.0-0.1) K/uL Nucleated RBC % 0.0 /100WBC Nucleated RBCs # 0 K/uL INR 0.96 Sodium 139 (136-148) mmol/L Potassium 4.3 (3.5-5.1) mmol/L Chloride 102 (98-107) mmol/L Carbon Dioxide 27.5 (21.0-32.0) mmol/L BUN 30 H (7.0-18.0) mg/dL Creatinine 1.3 (0.8-1.3) mg/dL Est Cr Clr Drug Dosing 56.34 mL/min Estimated GFR (MDRD) 54.0 ml/min Glucose 271 H (74-106) mg/dL POC Glucose (60-110) mg/dL Hemoglobin A1c (4.5-6.2) % Calcium 9.0 (8.5-10.1) mg/dL Phosphorus (2.6-4.7) mg/dL Magnesium (1.8-2.4) mg/dL Total Bilirubin 0.2 (0.2-1.0) mg/dL AST 21 (15-37) IU/L ALT 30 (14-63) IU/L Alkaline Phosphatase 74 (46-116) U/L Troponin I < 0.050 (0.000-0.056) ng/mL B-Natriuretic Peptide (<100) PG/ML Total Protein 7.3 (6.4-8.2) g/dL Albumin 3.4 (3.4-5.0) g/dL Globulin 3.9 (2.6-4.0) g/dL Albumin/Globulin Ratio 0.9 (0.9-1.6) Triglycerides (0-200) mg/dL Cholesterol (50-200) mg/dL LDL Cholesterol, Calc (60-180) mg/dL VLDL Cholesterol (5-55) mg/dL HDL Cholesterol (40-60) mg/dL Cholesterol/HDL Ratio (3.3-6.0) TSH 3rd Generation (0.36-3.74) uIU/mL Urine Color Urine Appearance Urine pH (5.0-8.0) Ur Specific [place] (1.001-1.035) Urine Protein (NEGATIVE) mg/dL Urine Glucose (UA) (NEGATIVE) mg/dL Urine Ketones (NEGATIVE) mg/dL Urine Occult Blood (NEGATIVE) Urine Nitrite (NEGATIVE) Urine Bilirubin (NEGATIVE) Urine Urobilinogen (<2.0) EU/dL Ur Leukocyte Esterase (NEGATIVE) Urine RBC (0-2/HPF) Urine WBC (0-5/HPF) Ur Epithelial Cells (NONE-FEW) Urine Bacteria (NEGATIVE) Urine Mucus (NONE-MOD) Ketones (NEG) 08/25/19 08/25/19 08/25/19 Range/Units 23:00 23:00 23:04 WBC (4.0-11.0) K/uL RBC (4.50-5.90) M/uL Hgb (13.0-17.0) g/dL Hct (38.0-50.0) % MCV (80.0-98.0) fL MCH (27.0-32.0) pg MCHC (31.0-37.0) g/dL RDW Std Deviation (28.0-62.0) fl RDW Coeff of Brian (11.0-15.0) % Plt Count (150-400) K/uL MPV (7.40-12.00) fL Neut % (Auto) (48.0-80.0) % Lymph % (Auto) (16.0-40.0) % [place] % (Auto) (0.0-15.0) % Eos % (Auto) (0.0-7.0) % Baso % (Auto) (0.0-1.5) % Neut # (Auto) (1.4-5.7) K/uL Lymph # (Auto) (0.6-2.4) K/uL [place] # (Auto) (0.0-0.8) K/uL Eos # (Auto) (0.0-0.7) K/uL Baso # (Auto) (0.0-0.1) K/uL Nucleated RBC % /100WBC Nucleated RBCs # K/uL INR Sodium (136-148) mmol/L Potassium (3.5-5.1) mmol/L Chloride (98-107) mmol/L Carbon Dioxide (21.0-32.0) mmol/L BUN (7.0-18.0) mg/dL Creatinine (0.8-1.3) mg/dL Est Cr Clr Drug Dosing mL/min Estimated GFR (MDRD) ml/min Glucose (74-106) mg/dL POC Glucose 252 H (60-110) mg/dL Hemoglobin A1c (4.5-6.2) % Calcium (8.5-10.1) mg/dL Phosphorus (2.6-4.7) mg/dL Magnesium (1.8-2.4) mg/dL Total Bilirubin (0.2-1.0) mg/dL AST (15-37) IU/L ALT (14-63) IU/L Alkaline Phosphatase (46-116) U/L Troponin I (0.000-0.056) ng/mL B-Natriuretic Peptide 60 (<100) PG/ML Total Protein (6.4-8.2) g/dL Albumin (3.4-5.0) g/dL Globulin (2.6-4.0) g/dL Albumin/Globulin Ratio (0.9-1.6) Triglycerides (0-200) mg/dL Cholesterol (50-200) mg/dL LDL Cholesterol, Calc (60-180) mg/dL VLDL Cholesterol (5-55) mg/dL HDL Cholesterol (40-60) mg/dL Cholesterol/HDL Ratio (3.3-6.0) TSH 3rd Generation (0.36-3.74) uIU/mL Urine Color Urine Appearance Urine pH (5.0-8.0) Ur Specific [place] (1.001-1.035) Urine Protein (NEGATIVE) mg/dL Urine Glucose (UA) (NEGATIVE) mg/dL Urine Ketones (NEGATIVE) mg/dL Urine Occult Blood (NEGATIVE) Urine Nitrite (NEGATIVE) Urine Bilirubin (NEGATIVE) Urine Urobilinogen (<2.0) EU/dL Ur Leukocyte Esterase (NEGATIVE) Urine RBC (0-2/HPF) Urine WBC (0-5/HPF) Ur Epithelial Cells (NONE-FEW) Urine Bacteria (NEGATIVE) Urine Mucus (NONE-MOD) Ketones NEGATIVE (NEG) 08/26/19 08/26/19 08/26/19 Range/Units 00:03 02:06 05:06 WBC (4.0-11.0) K/uL RBC (4.50-5.90) M/uL Hgb (13.0-17.0) g/dL Hct (38.0-50.0) % MCV (80.0-98.0) fL MCH (27.0-32.0) pg MCHC (31.0-37.0) g/dL RDW Std Deviation (28.0-62.0) fl RDW Coeff of Brian (11.0-15.0) % Plt Count (150-400) K/uL MPV (7.40-12.00) fL Neut % (Auto) (48.0-80.0) % Lymph % (Auto) (16.0-40.0) % [place] % (Auto) (0.0-15.0) % Eos % (Auto) (0.0-7.0) % Baso % (Auto) (0.0-1.5) % Neut # (Auto) (1.4-5.7) K/uL Lymph # (Auto) (0.6-2.4) K/uL [place] # (Auto) (0.0-0.8) K/uL Eos # (Auto) (0.0-0.7) K/uL Baso # (Auto) (0.0-0.1) K/uL Nucleated RBC % /100WBC Nucleated RBCs # K/uL INR Sodium (136-148) mmol/L Potassium (3.5-5.1) mmol/L Chloride (98-107) mmol/L Carbon Dioxide (21.0-32.0) mmol/L BUN (7.0-18.0) mg/dL Creatinine (0.8-1.3) mg/dL Est Cr Clr Drug Dosing mL/min Estimated GFR (MDRD) ml/min Glucose (74-106) mg/dL POC Glucose (60-110) mg/dL Hemoglobin A1c (4.5-6.2) % Calcium (8.5-10.1) mg/dL Phosphorus (2.6-4.7) mg/dL Magnesium (1.8-2.4) mg/dL Total Bilirubin (0.2-1.0) mg/dL AST (15-37) IU/L ALT (14-63) IU/L Alkaline Phosphatase (46-116) U/L Troponin I < 0.050 < 0.050 (0.000-0.056) ng/mL B-Natriuretic Peptide (<100) PG/ML Total Protein (6.4-8.2) g/dL Albumin (3.4-5.0) g/dL Globulin (2.6-4.0) g/dL Albumin/Globulin Ratio (0.9-1.6) Triglycerides (0-200) mg/dL Cholesterol (50-200) mg/dL LDL Cholesterol, Calc (60-180) mg/dL VLDL Cholesterol (5-55) mg/dL HDL Cholesterol (40-60) mg/dL Cholesterol/HDL Ratio (3.3-6.0) TSH 3rd Generation (0.36-3.74) uIU/mL Urine Color YELLOW Urine Appearance CLEAR Urine pH 6.0 (5.0-8.0) Ur Specific [place] 1.025 (1.001-1.035) Urine Protein NEGATIVE (NEGATIVE) mg/dL Urine Glucose (UA) 250 H (NEGATIVE) mg/dL Urine Ketones NEGATIVE (NEGATIVE) mg/dL Urine Occult Blood TRACE-LYSED H (NEGATIVE) Urine Nitrite NEGATIVE (NEGATIVE) Urine Bilirubin NEGATIVE (NEGATIVE) Urine Urobilinogen 0.2 (<2.0) EU/dL Ur Leukocyte Esterase NEGATIVE (NEGATIVE) Urine RBC NONE SEEN (0-2/HPF) Urine WBC 0-1 (0-5/HPF) Ur Epithelial Cells RARE (NONE-FEW) Urine Bacteria FEW (NEGATIVE) Urine Mucus LIGHT (NONE-MOD) Ketones (NEG) 08/26/19 08/26/19 08/26/19 Range/Units 05:06 05:06 05:06 WBC 10.22 (4.0-11.0) K/uL RBC 4.89 (4.50-5.90) M/uL Hgb 14.6 (13.0-17.0) g/dL Hct 44.2 (38.0-50.0) % MCV 90.4 (80.0-98.0) fL MCH 29.9 (27.0-32.0) pg MCHC 33.0 (31.0-37.0) g/dL RDW Std Deviation 47.0 (28.0-62.0) fl RDW Coeff of Brian 14 (11.0-15.0) % Plt Count 243 (150-400) K/uL MPV 9.70 (7.40-12.00) fL Neut % (Auto) 56.3 (48.0-80.0) % Lymph % (Auto) 33.6 (16.0-40.0) % [place] % (Auto) 7.2 (0.0-15.0) % Eos % (Auto) 2.7 (0.0-7.0) % Baso % (Auto) 0.2 (0.0-1.5) % Neut # (Auto) 5.8 H (1.4-5.7) K/uL Lymph # (Auto) 3.4 H (0.6-2.4) K/uL [place] # (Auto) 0.7 (0.0-0.8) K/uL Eos # (Auto) 0.3 (0.0-0.7) K/uL Baso # (Auto) 0.0 (0.0-0.1) K/uL Nucleated RBC % 0.0 /100WBC Nucleated RBCs # 0 K/uL INR Sodium 141 (136-148) mmol/L Potassium 4.4 (3.5-5.1) mmol/L Chloride 104 (98-107) mmol/L Carbon Dioxide 33.1 H (21.0-32.0) mmol/L BUN 28 H (7.0-18.0) mg/dL Creatinine 1.1 (0.8-1.3) mg/dL Est Cr Clr Drug Dosing 66.58 mL/min Estimated GFR (MDRD) > 60.0 ml/min Glucose 213 H (74-106) mg/dL POC Glucose (60-110) mg/dL Hemoglobin A1c 8.1 H (4.5-6.2) % Calcium 9.3 (8.5-10.1) mg/dL Phosphorus 4.3 (2.6-4.7) mg/dL Magnesium 1.8 (1.8-2.4) mg/dL Total Bilirubin (0.2-1.0) mg/dL AST (15-37) IU/L ALT (14-63) IU/L Alkaline Phosphatase (46-116) U/L Troponin I (0.000-0.056) ng/mL B-Natriuretic Peptide (<100) PG/ML Total Protein (6.4-8.2) g/dL Albumin (3.4-5.0) g/dL Globulin (2.6-4.0) g/dL Albumin/Globulin Ratio (0.9-1.6) Triglycerides 279 H (0-200) mg/dL Cholesterol 161 (50-200) mg/dL LDL Cholesterol, Calc 69 (60-180) mg/dL VLDL Cholesterol 55 (5-55) mg/dL HDL Cholesterol 36 L (40-60) mg/dL Cholesterol/HDL Ratio 4.5 (3.3-6.0) TSH 3rd Generation 3.25 (0.36-3.74) uIU/mL Urine Color Urine Appearance Urine pH (5.0-8.0) Ur Specific [place] (1.001-1.035) Urine Protein (NEGATIVE) mg/dL Urine Glucose (UA) (NEGATIVE) mg/dL Urine Ketones (NEGATIVE) mg/dL Urine Occult Blood (NEGATIVE) Urine Nitrite (NEGATIVE) Urine Bilirubin (NEGATIVE) Urine Urobilinogen (<2.0) EU/dL Ur Leukocyte Esterase (NEGATIVE) Urine RBC (0-2/HPF) Urine WBC (0-5/HPF) Ur Epithelial Cells (NONE-FEW) Urine Bacteria (NEGATIVE) Urine Mucus (NONE-MOD) Ketones (NEG) 08/26/19 Range/Units 06:45 WBC (4.0-11.0) K/uL RBC (4.50-5.90) M/uL Hgb (13.0-17.0) g/dL Hct (38.0-50.0) % MCV (80.0-98.0) fL MCH (27.0-32.0) pg MCHC (31.0-37.0) g/dL RDW Std Deviation (28.0-62.0) fl RDW Coeff of Brian (11.0-15.0) % Plt Count (150-400) K/uL MPV (7.40-12.00) fL Neut % (Auto) (48.0-80.0) % Lymph % (Auto) (16.0-40.0) % [place] % (Auto) (0.0-15.0) % Eos % (Auto) (0.0-7.0) % Baso % (Auto) (0.0-1.5) % Neut # (Auto) (1.4-5.7) K/uL Lymph # (Auto) (0.6-2.4) K/uL [place] # (Auto) (0.0-0.8) K/uL Eos # (Auto) (0.0-0.7) K/uL Baso # (Auto) (0.0-0.1) K/uL Nucleated RBC % /100WBC Nucleated RBCs # K/uL INR Sodium (136-148) mmol/L Potassium (3.5-5.1) mmol/L Chloride (98-107) mmol/L Carbon Dioxide (21.0-32.0) mmol/L BUN (7.0-18.0) mg/dL Creatinine (0.8-1.3) mg/dL Est Cr Clr Drug Dosing mL/min Estimated GFR (MDRD) ml/min Glucose (74-106) mg/dL POC Glucose 176 H (60-110) mg/dL Hemoglobin A1c (4.5-6.2) % Calcium (8.5-10.1) mg/dL Phosphorus (2.6-4.7) mg/dL Magnesium (1.8-2.4) mg/dL Total Bilirubin (0.2-1.0) mg/dL AST (15-37) IU/L ALT (14-63) IU/L Alkaline Phosphatase (46-116) U/L Troponin I (0.000-0.056) ng/mL B-Natriuretic Peptide (<100) PG/ML Total Protein (6.4-8.2) g/dL Albumin (3.4-5.0) g/dL Globulin (2.6-4.0) g/dL Albumin/Globulin Ratio (0.9-1.6) Triglycerides (0-200) mg/dL Cholesterol (50-200) mg/dL LDL Cholesterol, Calc (60-180) mg/dL VLDL Cholesterol (5-55) mg/dL HDL Cholesterol (40-60) mg/dL Cholesterol/HDL Ratio (3.3-6.0) TSH 3rd Generation (0.36-3.74) uIU/mL Urine Color Urine Appearance Urine pH (5.0-8.0) Ur Specific [place] (1.001-1.035) Urine Protein (NEGATIVE) mg/dL Urine Glucose (UA) (NEGATIVE) mg/dL Urine Ketones (NEGATIVE) mg/dL Urine Occult Blood (NEGATIVE) Urine Nitrite (NEGATIVE) Urine Bilirubin (NEGATIVE) Urine Urobilinogen (<2.0) EU/dL Ur Leukocyte Esterase (NEGATIVE) Urine RBC (0-2/HPF) Urine WBC (0-5/HPF) Ur Epithelial Cells (NONE-FEW) Urine Bacteria (NEGATIVE) Urine Mucus (NONE-MOD) Ketones (NEG) Result Diagrams: 08/26/19 05:06 08/26/19 05:06 Sepsis Event Note - Evaluation Sepsis Screening Result: No Definite Risk - Focused Exam Vital Signs: Vital Signs Temp Pulse Resp BP BP Pulse Ox Pulse Ox 08/26/19 08:00 96.6 F L 53 L 17 123/69 95 08/26/19 04:00 97.4 F 50 L 16 132/87 96 08/26/19 03:05 96 08/26/19 01:08 96.9 F 51 L 18 136/59 L 96 08/26/19 01:00 56 L 159/63 H 08/26/19 00:15 60 18 159/62 H 95 08/26/19 00:00 54 L 152/63 H 08/25/19 23:30 60 18 129/58 L 95 08/25/19 23:27 60 149/62 H 08/25/19 23:22 145/70 H 08/25/19 23:17 209/92 H 08/25/19 23:04 97.8 F 62 18 198/94 H 97 Date Exam was Performed: 08/26/19 Time Exam was Performed: 15:37 - Problem List (1) CAD (coronary artery disease) SNOMED Code(s): 03467380 ICD Code: I25.10 - ATHSCL HEART DISEASE OF [place] CORONARY ARTERY W/O ANG PCTRS Status: Acute (2) Chest pain SNOMED Code(s): 74703943 ICD Code: R07.9 - CHEST PAIN, UNSPECIFIED Status: Acute (3) Diabetes mellitus type 2 SNOMED Code(s): 61214273 ICD Code: E11.9 - TYPE 2 DIABETES MELLITUS WITHOUT COMPLICATIONS Status: Acute Problem List Initiated/Reviewed/Updated: Yes Orders Last 24hrs: Active Orders 24 hr Category Date Time Status Admission Status [Patient Status] [ADT] Stat ADT 08/26/19 00:08 Active Activity as Tolerated [RC] .Routine Care 08/26/19 03:04 Active Cardiac Monitoring [RC] Q8H Care 08/25/19 23:07 Active Oxygen Therapy Adult [Oxygen Therapy] [RC] ASDIRECTED Care 08/26/19 03:05 Active Telemetry Monitoring [Cardiac Monitoring] [RC] Q8H Care 08/26/19 00:30 Active Vital Signs [RC] Q4H Care 08/26/19 03:02 Active Heart Healthy Diet [DIET] Diet 08/26/19 Breakfast Active Aspirin Med 08/26/19 09:00 Active 325 mg PO DAILY Clopidogrel [Plavix] Med 08/26/19 21:00 Active 75 mg PO BEDTIME Insulin Aspart [NovoLOG] Med 08/26/19 07:30 Active See Protocol SUBCUT TIDAC Insulin Glarg,Human.Rec.Analog [LantUS Solostar] Med 08/26/19 09:00 Active 50 units SUBCUT BID Morphine Med 08/26/19 03:12 Active 2 mg IVPUSH Q4H PRN Nitroglycerin [Nitrostat] Med 08/26/19 03:26 Active 0.4 mg SL ASDIRECTED PRN Nitroglycerin [Nitrostat] Med 08/25/19 23:12 Active 0.4 mg SL Q5M PRN Simvastatin [Zocor] Med 08/26/19 21:00 Active 40 mg PO BEDTIME atenoloL [Tenormin] Med 08/26/19 09:00 Active 50 mg PO BID hydroCHLOROthiazide Med 08/26/19 09:00 Active 25 mg PO DAILY lisinopriL [Prinivil] Med 08/26/19 09:00 Active 20 mg PO BID Medication Orders Aspirin (Aspirin) 325 mg PO DAILY [facility] Atenolol (Tenormin) 50 mg PO BID [facility] Clopidogrel Bisulfate (Plavix) 75 mg PO BEDTIME [facility] Hydrochlorothiazide (Hydrochlorothiazide) 25 mg PO DAILY [facility] Insulin [facility] ([facility]olog[facility] Protocol Last Admin: 08/26/19 07:33 Dose: 3 units Insulin Glargine (Lantus Solostar) 50 units SUBCUT BID [facility] Lisinopril (Prinivil) 20 mg PO BID [facility] Morphine Sulfate (Morphine) 2 mg IVPUSH Q4H PRN PRN Reason: Pain Nitroglycerin (Nitrostat) 0.4 mg SL Q5M PRN PRN Reason: Chest Pain Last Admin: 08/25/19 23:22 Dose: 0.4 mg Admin: 08/25/19 23:17 Dose: 0.4 mg Nitroglycerin (Nitrostat) 0.4 mg SL ASDIRECTED PRN PRN Reason: Chest Pain Simvastatin (Zocor) 40 mg PO BEDTIME [facility] Assessment/Plan Comment:: This 74 year old male admitted with chest pain and elevated BP. 1. Chest pain: - Troponins x 3 negative - No return of chest pain - BP stable during stay, did not bradycardia 50s. - Will arrange outpatient stress test, Lexiscan and arrange appointment with Dr Justin to evaluate, he may need 4-5 visits to monitor BP and HR - Will decrease Atenolol to 25 mg BID and increase Lisinopril to 40 mg daily. Monitor BP at home closely and keep a log for follow up - We discussed monitoring diet closely for increase salt intake with processed and frozen foods. Discharge Plan. Continue all other home medications and insulin regimen. Again monitor food intake, may help lower A1c further. Monitor BPs at home. Sj will be discharged home today. he will have follow up with PCP at [facility] as well as cardiology to further evaluate. Mary ordered as well. He is to return to ED or clinic if concerns should arise.
[2019-08-26] MEDS ORDERED: Insulin Glargine,Human Rec. Analog 100 Units/ML 3 ML Pen SUBCUT SCH (09:00)
[2019-08-26] MEDS ORDERED: Atenolol 50 MG Tab PO SCH (09:00)
[2019-08-26] MEDS ORDERED: Aspirin 325 MG Tab PO SCH (09:00)
[2019-08-26] MEDS ORDERED: Lisinopril 10 MG Tab PO SCH (09:00)
[2019-08-26] MEDS ORDERED: Hydrochlorothiazide 25 MG Tab PO SCH (09:00)
[2019-08-26 12:49] VITALS: BP 105/50; PULSE 59
[2019-08-26] MEDS ORDERED: Simvastatin 40 MG Tab PO SCH (21:00)
[2019-08-26] MEDS ORDERED: Clopidogrel 75 MG Tab PO SCH (21:00)
== END 2019-08-26 13:30 | disposition home or self-care (01) ==
LOC: MW.ED 22:56 → MW.MS 08-26 00:08
PROVIDERS: ADMIT Student in an Organized Health Care Education/Training Program; ATTEND Student in an Organized Health Care Education/Training Program
DX: I25.10 Atherosclerotic heart disease of native coronary artery without angina pectoris (principal); E11.9 Type 2 diabetes mellitus without complications; I10 Essential (primary) hypertension; E78.5 Hyperlipidemia, unspecified; I25.2 Old myocardial infarction; K21.9 Gastro-esophageal reflux disease without esophagitis; E66.9 Obesity, unspecified; E78.00 Pure hypercholesterolemia, unspecified; Z95.1 Presence of aortocoronary bypass graft; Z82.49 Family history of ischemic heart disease and other diseases of the circulatory system; Z88.8 Allergy status to other drugs, medicaments and biological substances; Z79.82 Long term (current) use of aspirin; Z79.4 Long term (current) use of insulin; Z79.899 Other long term (current) drug therapy; Z95.5 Presence of coronary angioplasty implant and graft; Z87.891 Personal history of nicotine dependence; Z68.39 Body mass index [BMI] 39.0-39.9, adult
CPT/HCPCS: 36415; 71045; 80048; 80053; 80061; 81001; 82009; 82962; 83036; 83735; 83880; 84100; 84443; 84484; 85025; 85610; 93005; 99285; A9270; G0378; J1815; 99284

== ENCOUNTER 2020-05-13 10:19 | Observation (INO) | payer OTHER, MEDICARE ==
[2020-05-13] MEDS ORDERED: Sodium Chloride 0.9% 2.5 ML Syringe FLUSH PRN (10:20)
[2020-05-13] MEDS ORDERED: Sodium Chloride 0.9% 10 ML Syringe FLUSH PRN (10:20)
[2020-05-13] MEDS ORDERED: Ondansetron 4 MG/2 ML SDV IVPUSH ONE (10:49)
[2020-05-13] MEDS ORDERED: Sodium Chloride 0.9% 1,000 ML IV ONE (10:49)
--- NOTE | 2020-05-13 10:50 | PCM.SN.2 ---
- Free Text/Narrative Note: EKG Time 1033am Rate 55 NSR RBBB no VLAD
[2020-05-13] MEDS ORDERED: Dexamethasone 10 MG/ML SDV IVPUSH ONE (11:01)
--- NOTE | 2020-05-13 11:06 | EDM.PDOC ---
ED HPI GENERAL MEDICAL PROBLEM - General Chief Complaint: Respiratory Problem Stated Complaint: TROUBLE BREATHING/WEAKNESS Time Seen by Provider: 05/13/20 10:20 Source of Information: Reports: Patient History Limitations: Reports: No Limitations - History of Present Illness INITIAL COMMENTS - FREE TEXT/NARRATIVE: HISTORY AND PHYSICAL: History of present illness: Patient is a 75-year-old male who presents to the emergency room today with concern of shortness of breath, weakness, decreased appetite over the past several weeks that has worsened the past 1 to 2 days. Patient states he was diagnosed with Covid and tested positive on May 02 but has been instructed he no longer needs to quarantine. Patient states that he did have a slight cough but this was not a prominent symptom. Patient states that he has had a drastic decrease in appetite and anytime he tries to eat, he feels like he is going to vomit. Patient states that he also feels so hungry that his abdomen hurts but he does not have abdominal pain. Patient states that he ate a few crackers this morning and some tea but has not been able to eat a full meal due to decrease in appetite. Patient states he has a history of triple bypass, and has 4 stents placed. He has a history of atrial fibrillation status post ablation, hypertension, type 2 diabetes on insulin, and states he has chronic left sided weakness since his cardiac bypass where the vein of his left LE was harvested. Patient denies fever, chills, chest pain,. Denies headache, neck stiff ness, change in vision, syncope, or near syncope. Denies abdominal pain, diarrhea, constipation, or dysuria. Has not noted any blood in urine or stool. Review of systems: As per history of present illness and below otherwise all systems reviewed and negative. Past medical history: As per history of present illness and as reviewed below otherwise noncontributory. Surgical history: As per history of present illness and as reviewed below otherwise noncontributory. Social history: See social history for further information Family history: As per history of present illness and as reviewed below otherwise noncontributory. Physical exam: General: Patient is alert, oriented, and in no acute distress. Patient laying comfortably on exam table. Vitals stable when patient is laying on exam table, but is hypoxic at low 80% with ambulation/moving. HEENT: Atraumatic, normocephalic, pupils equal and reactive bilaterally, negative for conjunctival pallor or scleral icterus, mucous membranes moist, TMs normal bilaterally, throat clear, neck supple, nontender, trachea midline. No drooling or trismus noted. No meningeal signs. No hot potato voice noted. Lungs: Patient speaking clearly without breathlessness, no wheezing or stridor, no accessory muscle use or respiratory distress. Auscultation deferred due to current COV-ID 19 outbreak. Heart: Auscultation deferred due to current COV-ID 19 outbreak. Abdomen: Soft, nondistended, nontender. Negative for masses or hepatosplenomegaly. Negative for costovertebral tenderness. Pelvis: Stable nontender. Genitourinary: Deferred. Rectal: Deferred. Skin: Intact, warm, dry. No lesions or rashes noted. Extremities: Patient does have a well healing 2cm ulcer of the distal left big toe without erythema or drainage. Full ROM of bilateral upper and lower extremities. Otherwise, atraumatic, negative for cords or calf pain. Neurovascular unremarkable. Neuro: Awake, alert, oriented. Cranial nerves II through XII unremarkable. Cerebellum unremarkable. Motor and sensory unremarkable throughout. Exam nonfocal. Notes: Patient is bradycardic consistently around 50bmp today. He is on a beta-blocking medication. With ambulation, patient is hypoxic in the low 80% and he is weak and unable to transfer without assistance (baseline is able to ambulate by himself). Dr. Modi consulted on patient and will admit to observation telemetry. Voices understanding and is agreeable to plan of care. Denies any further questions or concerns at this time. Diagnostics: EKG, CBC, CMP, UA, Trop, CXR, Ddimer, BNP, VBG, Ang CT Therapeutics: NS, Zofran, Decadron Impression: COVID-19 infection Hypoxia, ambulatory Weakness Bradycardia Acute kidney injury Hyponatremia First digit ulcer, left lower extremity Plan: Admit to observation to Dr. Modi on telemetry Definitive disposition and diagnosis as appropriate pending reevaluation and review of above. back Pain Score (Numeric/FACES): 5 - Related Data Allergies Allergy/AdvReac Type Severity Reaction Status Date / Time cefaclor [From [facility]] Allergy Rash Verified 05/13/20 11:08 Home Meds: Home Meds Aspirin [Ecotrin EC] 325 mg PO DAILY 05/13/20 [History] Clopidogrel [Plavix] 75 mg PO DAILY 05/13/20 [History] Docusate Sodium 100 mg PO ASDIRECTED PRN 05/13/20 [History] Insulin Aspart [NovoLOG] 1 dose .ROUTE ASDIRECTED 05/13/20 [History] Insulin Glarg,Human.Rec.Analog [Lantus] 100 unit SQ ASDIRECTED 05/13/20 [History] Isosorbide Mononitrate [Isosorbide Mononitrate ER] 30 mg PO DAILY 05/13/20 [History] Multivit-Min/FA/Lycopen/Lutein [Centrum Silver Tablet] 1 each PO DAILY 05/13/20 [History] Nitroglycerin 1 tab SL ASDIRECTED 05/13/20 [History] Non-Formulary Medication [NF Drug] 1 tab PO DAILY 05/13/20 [History] Non-Formulary Medication [NF Drug] 1 tab PO DAILY 05/13/20 [History] Omeprazole 20 mg PO DAILY 05/13/20 [History] Ranolazine [Ranexa] 500 mg PO BID 05/13/20 [History] Rosuvastatin [Crestor] 20 mg PO DAILY 05/13/20 [History] Silver Sulfadiazine [Silvadene 1% Cream 50 GM] 50 gm TOP ASDIRECTED 05/13/20 [History] atenoloL [Atenolol] 50 mg PO BID 05/13/20 [History] hydroCHLOROthiazide [Hydrochlorothiazide] 25 mg PO DAILY 05/13/20 [History] lisinopriL [Lisinopril] 20 mg PO DAILY 05/13/20 [History] metFORMIN [Glucophage] 500 mg PO BIDMEALS 05/13/20 [History] Past Medical History HEENT History: Reports: Glaucoma, Hard of Hearing, Impaired Vision, Other (See Below) Other HEENT History: wears glasses Cardiovascular History: Reports: Afib, CAD, High Cholesterol, Hypertension, MO, Other (See Below), PVD, Stents Other Cardiovascular History: ablation, tachycardia Respiratory History: Reports: Other (See Below), Sleep Apnea Other Respiratory History: chronic cough Gastrointestinal History: Reports: Colon Polyp, GERD, Helicobacter Pylori, None Genitourinary History: Reports: None [employer] History: Reports: None Musculoskeletal History: Reports: Amputation, Back Pain, Chronic, Other (See Below), Osteoarthritis Other Musculoskeletal History: knee pain, shoulder pain, muscle spasms, shoulder impingement, limb pain Neurological History: Reports: Neuropathy, Diabetic, Other (See Below) Other Neuro History: lumbar spinal stenosis Psychiatric History: Reports: None Endocrine/Metabolic History: Reports: Diabetes, Type II, Obesity/BMI 30+ Hematologic History: Reports: None Immunologic History: Reports: None Oncologic (Cancer) History: Reports: None Dermatologic History: Reports: Other (See Below) Other Dermatologic History: cellulitis and abcess of toe - Infectious Disease History Infectious Disease History: Reports: Chicken Pox, Measles, Mumps - Past Surgical History Cardiovascular Surgical History: Reports: Cardiac Ablation, Coronary Artery Bypass, Coronary Artery Stent, Carotid Endarterectomy Musculoskeletal Surgical History: Reports: Arthroscopic Knee, Amputation, Carpal Tunnel, Other (See Below) Social & Family History - Family History Family Medical History: No Pertinent Family History - Caffeine Use Caffeine Use: Reports: Coffee ED ROS GENERAL - Review of Systems Review Of Systems: Comprehensive ROS is negative, except as noted in HPI. ED EXAM, GENERAL - Physical Exam Exam: See Below (see dictation) Course - Vital Signs Last Recorded V/S: Last Vital Signs Temp 97.0 F 05/13/20 20:00 Pulse 60 05/13/20 20:38 Resp 18 05/13/20 20:00 BP 154/49 H 05/13/20 20:38 Pulse Ox 93 L 05/13/20 20:00 - Orders/Labs/Meds Orders: Active Orders 24 hr Category Date Time Status Cardiac Monitoring [RC] . DIRECTED Care 05/13/20 10:20 Active UA RFX AMELIA AND CULT IF INDIC [URIN] Stat Lab 05/13/20 10:20 Ordered Sodium Chloride 0.9% [Saline Flush] Med 05/13/20 10:20 Active 10 ml FLUSH ASDIRECTED PRN Sodium Chloride 0.9% [Saline Flush] Med 05/13/20 10:20 Active 2.5 ml FLUSH ASDIRECTED PRN Saline Lock Insert [OM.PC] Stat Oth 05/13/20 10:20 Ordered Medication Orders Aspirin (Ecotrin) 325 mg PO DAILY DAVID Atenolol (Tenormin) 50 mg PO BID DAVID Last Admin: 05/13/20 20:38 Dose: 50 mg Documented by: SANDRA Clopidogrel Bisulfate (Plavix) 75 mg PO BEDTIME [facility] Last Admin: 05/13/20 21:42 Dose: 75 mg Documented by: SANDRA Dextrose/Water (Dextrose 50% In Water) 50 ml IV ASDIRECTED PRN PRN Reason: Hypoglycemia Dextrose/Water (Dextrose 50% In Water) 50 ml IV ASDIRECTED PRN PRN Reason: Hypoglycemia Glucagon (Glucagen) 1 mg IM ASDIRECTED PRN PRN Reason: Hypoglycemia Glucagon (Glucagen) 1 mg IM ASDIRECTED PRN PRN Reason: Hypoglycemia Hydrochlorothiazide (Hydrochlorothiazide) 25 mg PO DAILY [facility] Remdesivir 100 mg/ Sodium (Chloride) 100 mls @ 100 mls/hr IV Q24H [facility] Stop: 05/17/20 15:44 Insulin Aspart (Novolog) 0 unit SUBCUT TIDAC [facility]; Protocol Last Admin: 05/13/20 19:12 Dose: 8 units Documented by: MARKIE Insulin Glargine (Lantus Solostar) 50 units SUBCUT BID [facility] Last Admin: 05/13/20 21:41 Dose: 50 units Documented by: SANDRA Isosorbide Mononitrate (Imdur) 30 mg PO DAILY [facility] Non-Formulary Medication (Lisinopril) 20 mg PO DAILY [facility] Ranolazine (Ranexa) 500 mg PO BID [facility] Last Admin: 05/13/20 20:40 Dose: 500 mg Documented by: SANDRA Rosuvastatin Calcium (Crestor) 20 mg PO BEDTIME [facility] Last Admin: 05/13/20 21:42 Dose: 20 mg Documented by: SANDRA Silver Sulfadiazine (Silvadene 1% Cream 50 Gm) 50 gm TOP ASDIRECTED [facility] Sodium Chloride (Saline Flush) 10 ml FLUSH ASDIRECTED PRN PRN Reason: Keep Vein Open Last Admin: 05/13/20 10:55 Dose: 10 ml Documented by: DELPHINE Sodium Chloride (Saline Flush) 2.5 ml FLUSH ASDIRECTED PRN PRN Reason: Keep Vein Open Last Admin: 05/13/20 10:55 Dose: 2.5 ml Documented by: DELPHINE Labs: Laboratory Tests 05/13/20 05/13/20 05/13/20 Range/Units 10:45 10:45 10:45 WBC 9.38 (4.0-11.0) K/uL RBC 4.62 (4.50-5.90) M/uL Hgb 13.6 (13.0-17.0) g/dL Hct 40.8 (38.0-50.0) % MCV 88.3 (80.0-98.0) fL MCH 29.4 (27.0-32.0) pg MCHC 33.3 (31.0-37.0) g/dL RDW Std Deviation 46.0 (28.0-62.0) fl RDW Coeff of Brian 14 (11.0-15.0) % Plt Count 241 (150-400) K/uL MPV 9.50 (7.40-12.00) fL Neut % (Auto) 71.9 (48.0-80.0) % Lymph % (Auto) 21.7 (16.0-40.0) % [place] % (Auto) 6.1 (0.0-15.0) % Eos % (Auto) 0.1 (0.0-7.0) % Baso % (Auto) 0.2 (0.0-1.5) % Neut # (Auto) 6.7 H (1.4-5.7) K/uL Lymph # (Auto) 2.0 (0.6-2.4) K/uL [place] # (Auto) 0.6 (0.0-0.8) K/uL Eos # (Auto) 0.0 (0.0-0.7) K/uL Baso # (Auto) 0.0 (0.0-0.1) K/uL Nucleated RBC % 0.0 /100WBC Nucleated RBCs # 0 K/uL D-Dimer, Quantitative 0.82 H (0.0-0.50) mg/L FEU VBG pH (7.31-7.41) VBG pCO2 (35-45) mmHG VBG pO2 (30-40) mmHG VBG HCO3 (22-30) mEq/L VBG Total CO2 (41-51) mmol/L VBG Base Excess (-3.0-3.0) Sodium 130 L (136-148) mmol/L Potassium 4.6 (3.5-5.1) mmol/L Chloride 96 L (98-107) mmol/L Carbon Dioxide 28.1 (21.0-32.0) mmol/L BUN 25 H (7.0-18.0) mg/dL Creatinine 1.5 H (0.8-1.3) mg/dL Est Cr Clr Drug Dosing 46.70 mL/min Estimated GFR (MDRD) 45.6 ml/min Glucose 208 H (74-106) mg/dL Calcium 8.4 L (8.5-10.1) mg/dL Total Bilirubin 0.5 (0.2-1.0) mg/dL AST 35 (15-37) IU/L ALT 29 (14-63) IU/L Alkaline Phosphatase 69 (46-116) U/L Troponin I < 0.050 (0.000-0.056) ng/mL B-Natriuretic Peptide (<100) PG/ML Total Protein 7.3 (6.4-8.2) g/dL Albumin 2.9 L (3.4-5.0) g/dL Globulin 4.4 H (2.6-4.0) g/dL Albumin/Globulin Ratio 0.7 L (0.9-1.6) 05/13/20 05/13/20 Range/Units 10:45 10:45 WBC (4.0-11.0) K/uL RBC (4.50-5.90) M/uL Hgb (13.0-17.0) g/dL Hct (38.0-50.0) % MCV (80.0-98.0) fL MCH (27.0-32.0) pg MCHC (31.0-37.0) g/dL RDW Std Deviation (28.0-62.0) fl RDW Coeff of Brian (11.0-15.0) % Plt Count (150-400) K/uL MPV (7.40-12.00) fL Neut % (Auto) (48.0-80.0) % Lymph % (Auto) (16.0-40.0) % [place] % (Auto) (0.0-15.0) % Eos % (Auto) (0.0-7.0) % Baso % (Auto) (0.0-1.5) % Neut # (Auto) (1.4-5.7) K/uL Lymph # (Auto) (0.6-2.4) K/uL [place] # (Auto) (0.0-0.8) K/uL Eos # (Auto) (0.0-0.7) K/uL Baso # (Auto) (0.0-0.1) K/uL Nucleated RBC % /100WBC Nucleated RBCs # K/uL D-Dimer, Quantitative (0.0-0.50) mg/L FEU VBG pH 7.39 (7.31-7.41) VBG pCO2 46 H (35-45) mmHG VBG pO2 35 (30-40) mmHG VBG HCO3 28 (22-30) mEq/L VBG Total CO2 26 L (41-51) mmol/L VBG Base Excess 2.7 (-3.0-3.0) Sodium (136-148) mmol/L Potassium (3.5-5.1) mmol/L Chloride (98-107) mmol/L Carbon Dioxide (21.0-32.0) mmol/L BUN (7.0-18.0) mg/dL Creatinine (0.8-1.3) mg/dL Est Cr Clr Drug Dosing mL/min Estimated GFR (MDRD) ml/min Glucose (74-106) mg/dL Calcium (8.5-10.1) mg/dL Total Bilirubin (0.2-1.0) mg/dL AST (15-37) IU/L ALT (14-63) IU/L Alkaline Phosphatase (46-116) U/L Troponin I (0.000-0.056) ng/mL B-Natriuretic Peptide 151 H (<100) PG/ML Total Protein (6.4-8.2) g/dL Albumin (3.4-5.0) g/dL Globulin (2.6-4.0) g/dL Albumin/Globulin Ratio (0.9-1.6) Meds: Medications Generic Name Dose Route Start Last Admin Trade Name Freq PRN Reason Stop Dose Admin Aspirin 325 mg 05/14/20 09:00 Ecotrin PO DAILY DAVID Atenolol 50 mg 05/13/20 21:00 05/13/20 20:38 Tenormin PO 50 mg BID DAVID Administration Clopidogrel Bisulfate 75 mg 05/13/20 21:00 05/13/20 21:42 Plavix PO 75 mg BEDTIME DAVID Administration Dextrose/Water 50 ml 05/13/20 14:54 Dextrose 50% In Water IV ASDIRECTED PRN Hypoglycemia Dextrose/Water 50 ml 05/13/20 19:07 Dextrose 50% In Water IV ASDIRECTED PRN Hypoglycemia Glucagon 1 mg 05/13/20 14:54 Glucagen IM ASDIRECTED PRN Hypoglycemia Glucagon 1 mg 05/13/20 19:07 Glucagen IM ASDIRECTED PRN Hypoglycemia Hydrochlorothiazide 25 mg 05/14/20 09:00 Hydrochlorothiazide PO DAILY DAVID Remdesivir 100 mg/ Sodium 100 mls @ 100 mls/hr 05/14/20 14:45 Chloride IV 05/17/20 15:44 Q24H DAVID Insulin Aspart 0 unit 05/13/20 17:00 05/13/20 19:12 Novolog SUBCUT 8 units TIDAC DAVID Administration Protocol Insulin Glargine 50 units 05/13/20 21:30 05/13/20 21:41 Lantus Solostar SUBCUT 50 units BID DAVID Administration Isosorbide Mononitrate 30 mg 05/14/20 09:00 Imdur PO DAILY [facility] Non-Formulary Medication 20 mg 05/14/20 09:00 Lisinopril PO DAILY DAVID Ranolazine 500 mg 05/13/20 21:00 05/13/20 20:40 Ranexa PO 500 mg BID DAVID Administration Rosuvastatin Calcium 20 mg 05/13/20 21:00 05/13/20 21:42 Crestor PO 20 mg BEDTIME [facility]ID Administration Silver Sulfadiazine 50 gm 05/13/20 15:00 Silvadene 1% Cream 50 Gm TOP ASDIRECTED DAVID Sodium Chloride 10 ml 05/13/20 10:20 05/13/20 10:55 Saline Flush FLUSH 10 ml ASDIRECTED PRN Administration Keep Vein Open Sodium Chloride 2.5 ml 05/13/20 10:20 05/13/20 10:55 Saline Flush FLUSH 2.5 ml ASDIRECTED PRN Administration Keep Vein Open Discontinued Medications Generic Name Dose Route Start Last Admin Trade Name Freq PRN Reason Stop Dose Admin Dexamethasone 6 mg 05/13/20 11:01 05/13/20 11:53 Decadron IVPUSH 05/13/20 11:02 6 mg ONETIME ONE Administration Sodium Chloride 1,000 mls @ 999 mls/hr 05/13/20 10:49 05/13/20 10:54 Normal Saline IV 05/13/20 11:49 999 mls/hr STAT ONE Administration Remdesivir 200 mg/ Sodium 250 mls @ 250 mls/hr 05/13/20 14:43 05/13/20 19:00 Chloride IV 05/13/20 14:44 Not Given ONETIME ONE Remdesivir 200 mg/ Sodium 250 mls @ 250 mls/hr 05/13/20 18:00 05/13/20 19:20 Chloride IV 05/13/20 18:59 250 mls/hr ONETIME ONE Administration Insulin Aspart 10 unit 05/13/20 19:07 05/13/20 19:28 Novolog SUBCUT 05/13/20 19:08 10 units DAILY ONE Administration Iopamidol 100 ml 05/13/20 12:37 05/13/20 12:38 Isovue Multipack-370 (76%) IVPUSH 05/13/20 12:38 100 ml ONETIME ONE Administration Non-Formulary Medication 100 unit 05/13/20 15:00 Insulin Glarg,Human.Rec.Analog SQ ASDIRECTED [facility] Ondansetron HCl 4 mg 05/13/20 10:49 05/13/20 10:55 Zofran IVPUSH 05/13/20 10:50 4 mg ONETIME ONE Administration Departure - Departure Time of Disposition: 13:47 Disposition: Refer to Observation Clinical Impression: COVID-19 virus infection, Hypoxia, Weakness, Bradycardia, Hyponatremia, Acute kidney injury Ulcer of toe of left foot Qualifiers: Non-pressure ulcer stage: limited to breakdown of skin Qualified Code(s): L97.521 - Non-pressure chronic ulcer of other part of left foot limited to breakdown of skin - Discharge Information Sepsis Event Note (ED) - Focused Exam Vital Signs: Vital Signs Temp Pulse Resp BP Pulse Ox 05/13/20 13:23 86 18 109/61 92 L 05/13/20 11:55 50 L 20 105/83 94 L 05/13/20 10:53 99.1 F 50 L 24 H 151/60 H 89 L - My Orders Last 24 Hours: My Active Orders 05/13/20 10:20 Cardiac Monitoring [RC] . DIRECTED UA RFX AMELIA AND CULT IF INDIC [URIN] Stat Sodium Chloride 0.9% [Saline Flush] 10 ml FLUSH ASDIRECTED PRN Sodium Chloride 0.9% [Saline Flush] 2.5 ml FLUSH ASDIRECTED PRN Saline Lock Insert [OM.PC] Stat - Assessment/Plan Last 24 Hours: My Active Orders 05/13/20 10:20 Cardiac Monitoring [RC] . DIRECTED UA RFX AMELIA AND CULT IF INDIC [URIN] Stat Sodium Chloride 0.9% [Saline Flush] 10 ml FLUSH ASDIRECTED PRN Sodium Chloride 0.9% [Saline Flush] 2.5 ml FLUSH ASDIRECTED PRN Saline Lock Insert [OM.PC] Stat
[2020-05-13 11:32] LABS: BLOOD UREA NITROGEN,BUN 25 mg/dL (7.0-18.0); CARBON DIOXIDE,CO2 28.1 mmol/L (21.0-32.0); CHLORIDE,CL 96 mmol/L (98-107); GLUCOSE RANDOM 208 mg/dL (74-106); POTASSIUM,K 4.6 mmol/L (3.5-5.1); SODIUM,NA 130 mmol/L (136-148)
--- NOTE | 2020-05-13 11:36 | CR ---
INDICATION: Chest pain. Shortness of breath. COMPARISON: Two view chest dated 03/09/2020 TECHNIQUE: Portable AP erect chest performed at 11:04 a.m. FINDINGS: As compared to the recent exam dated 03/09/2020 there has been development of patchy airspace opacities within the mid and lower lung zones. Heart remains mildly enlarged. The patient is status post midline sternotomy. The pulmonary vessels appear normal in size and there is no evidence of pleural fluid. IMPRESSION: New infiltrates identified within the lungs. Findings could indicate an infectious inflammatory process such is COVID-19 pneumonia. Dictated by Kenroy Roca MD @ May 13 2020 11:31AM Signed by Dr. Kenroy Roca @ May 13 2020 11:33AM
[2020-05-13] MEDS ORDERED: Iopamidol 755 MG/ML 500 ML Multipack Bottle IVPUSH ONE (12:37)
--- NOTE | 2020-05-13 13:04 | CT ---
Indication: Increased weakness difficulty eating diagnosed with briggs virus 19 05/02/2020 Technique: Volumetric multidetector CT images of the chest were obtained after the administration of IV contrast. 100 cc Isovue 370 Comparison: None available. Findings: The thoracic inlet and thyroid gland are unremarkable. The thoracic aorta is non aneurysmal with scattered atherosclerotic calcification. There is prior coronary artery bypass grafting. There is no central filling defect to suggest pulmonary embolism. There are reactive mediastinal and hilar lymph nodes. There is axillary adenopathy. There is marked central bronchial thickening. There are extensive ground-glass opacities seen throughout the bilateral hemithoraces predominately within the lower lobes commensurate with history atypical viral infiltrate. There is demonstration of likely a small pulmonary nodule within the right lower lobe measuring 8.7 millimeters on series 41, image 397. The partially visualized upper abdominal viscera are within normal limits. The thoracic vertebral body heights are grossly maintained with endplate Schmorl`s defects. There is diffuse flowing anterior osteophytes. There is no evidence of displaced fracture or dislocation. Impression: Extensive ground-glass opacity seen throughout the bilateral hemithoraces consistent with multifocal viral infiltrates with associated bronchial thickening and reactive hilar lymph nodes. No evidence of pulmonary embolism. Please note that all CT scans at this facility use dose modulation, iterative reconstruction, and/or weight-based dosing when appropriate to reduce radiation dose to as low as reasonably achievable. Dictated by Praveen Houston MD @ May 13 2020 12:47PM Signed by Dr. Praveen Houston @ May 13 2020 1:03PM
[2020-05-13] MEDS ORDERED: REMDESIVIR 200 MG in Sodium Chloride 0.9% 250 ML IV ONE ×2 (14:43→18:00)
[2020-05-13] MEDS ORDERED: 50% Dextrose in Water 50 ML Syringe IV PRN ×2 (14:54→19:07)
[2020-05-13] MEDS ORDERED: Glucagon,Human Recombinant 1 MG Vial IM PRN ×2 (14:54→19:07)
[2020-05-13] MEDS ORDERED: [UNRECOGNIZED DRUG - OTHER] SQ SCH (15:00)
[2020-05-13] MEDS ORDERED: Silver Sulfadiazine 1% Crm 50 GM Tube TOP SCH (15:00)
[2020-05-13] MEDS ORDERED: INSULIN GLARGINE SQ SCH (15:00)
--- NOTE | 2020-05-13 15:07 | PCM.HP.2 ---
H&P History of Present Illness - General Date of Service: 05/13/20 Admit Problem/Dx: Admission Diagnosis/Problem Admission Diagnosis/Problem Weakness - History of Present Illness Initial Comments - Free Text/Narative: 75 yo male with pmh of DM, CAD who was diagnosed with COVID May 01 who presents to the ED today with generalized weakness, poor apatite and shortness of breath. PAtient reports not being able to get up out of bed and unable to do his ADLS. He denies any fevers or chest pain. IN the ED he was noted to be satting 92% on Room air but desatted to the low 80s with any exertion. CT chest angio was negative for PE. ED physcian referred for admission due to general debility and hypoxia. back Pain Score (Numeric/FACES): 5 - Related Data Allergies/Adverse Reactions: Allergies Allergy/AdvReac Type Severity Reaction Status Date / Time cefaclor [From Ceclor] Allergy Rash Verified 05/13/20 11:08 Home Medications: Home Meds Aspirin [Ecotrin EC] 325 mg PO DAILY 05/13/20 [History] Clopidogrel [Plavix] 75 mg PO DAILY 05/13/20 [History] Docusate Sodium 100 mg PO ASDIRECTED PRN 05/13/20 [History] Insulin Aspart [NovoLOG] 1 dose .ROUTE ASDIRECTED 05/13/20 [History] Insulin Glarg,Human.Rec.Analog [Lantus] 100 unit SQ ASDIRECTED 05/13/20 [History] Isosorbide Mononitrate [Isosorbide Mononitrate ER] 30 mg PO DAILY 05/13/20 [History] Multivit-Min/FA/Lycopen/Lutein [Centrum Silver Tablet] 1 each PO DAILY 05/13/20 [History] Nitroglycerin 1 tab SL ASDIRECTED 05/13/20 [History] Non-Formulary Medication [NF Drug] 1 tab PO DAILY 05/13/20 [History] Non-Formulary Medication [NF Drug] 1 tab PO DAILY 05/13/20 [History] Omeprazole 20 mg PO DAILY 05/13/20 [History] Ranolazine [Ranexa] 500 mg PO BID 05/13/20 [History] Rosuvastatin [Crestor] 20 mg PO DAILY 05/13/20 [History] Silver Sulfadiazine [Silvadene 1% Cream 50 GM] 50 gm TOP ASDIRECTED 05/13/20 [History] atenoloL [Atenolol] 50 mg PO BID 05/13/20 [History] hydroCHLOROthiazide [Hydrochlorothiazide] 25 mg PO DAILY 05/13/20 [History] lisinopriL [Lisinopril] 20 mg PO DAILY 05/13/20 [History] metFORMIN [Glucophage] 1,000 mg PO BIDMEALS 05/13/20 [History] Past Medical History HEENT History: Reports: Glaucoma, Hard of Hearing, Impaired Vision, Other (See Below) Other HEENT History: wears glasses Cardiovascular History: Reports: Afib, CAD, High Cholesterol, Hypertension, [place], Other (See Below), PVD, Stents Other Cardiovascular History: ablation, tachycardia Respiratory History: Reports: Other (See Below), Sleep Apnea Other Respiratory History: chronic cough Gastrointestinal History: Reports: Colon Polyp, GERD, Helicobacter Pylori, None Genitourinary History: Reports: 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 Musculoskeletal History: Reports: Amputation, Back Pain, Chronic, Other (See Below), Osteoarthritis Other Musculoskeletal History: knee pain, shoulder pain, muscle spasms, shoulder impingement, limb pain Neurological History: Reports: Neuropathy, Diabetic, Other (See Below) Other Neuro History: lumbar spinal stenosis Psychiatric History: Reports: None Endocrine/Metabolic History: Reports: Diabetes, Type II, Obesity/BMI 30+ Hematologic History: Reports: None Immunologic History: Reports: None Oncologic (Cancer) History: Reports: None Dermatologic History: Reports: Other (See Below) Other Dermatologic History: cellulitis and abcess of toe - Infectious Disease History Infectious Disease History: Reports: Chicken Pox, Measles, Mumps - Past Surgical History Head Surgeries/Procedures: Reports: None HEENT Surgical History: Reports: Cataract Surgery Cardiovascular Surgical History: Reports: Cardiac Ablation, Coronary Artery Bypass, Coronary Artery Stent, Carotid Endarterectomy Other Cardiovascular Surgeries/Procedures: tripple bypass, stents x 4 Respiratory Surgical History: Reports: None GI Surgical History: Reports: Colonoscopy Male Surgical History: Reports: None Endocrine Surgical History: Reports: None Neurological Surgical History: Reports: None Musculoskeletal Surgical History: Reports: Arthroscopic Knee, Amputation, Carpal Tunnel, Other (See Below) Other Musculoskeletal Surgeries/Procedures:: left toe amputation, right carpal tunnel release Oncologic Surgical History: Reports: None Social & Family History - Family History Family Medical History: No Pertinent Family History - Caffeine Use Caffeine Use: Reports: Coffee H&P Review of Systems - Review of Systems: Review Of Systems: Comprehensive ROS is negative, except as noted in HPI. Exam - Exam Exam: See Below - Vital Signs Vital Signs: Last Vital Signs Temp 37.3 C 05/13/20 10:53 Pulse 50 L 05/13/20 11:55 Resp 20 05/13/20 11:55 BP 105/83 05/13/20 11:55 Pulse Ox 94 L 05/13/20 11:55 Weight: 108.862 kg - Exam General: Alert, Oriented HEENT: Mucosa Moist & [place] Neck: Supple Lungs: Clear to Auscultation, Normal Respiratory Effort Cardiovascular: Regular Rate, Regular Rhythm GI/Abdominal Exam: Normal Bowel Sounds, Soft, Non-Tender Extremities: Non-Tender, No Pedal Edema Skin: Warm, Dry, Intact - Patient Data Lab Results Last 24 hrs: Laboratory Results - last 24 hr 05/13/20 05/13/20 05/13/20 Range/Units 10:45 10:45 10:45 WBC 9.38 (4.0-11.0) K/uL RBC 4.62 (4.50-5.90) M/uL Hgb 13.6 (13.0-17.0) g/dL Hct 40.8 (38.0-50.0) % MCV 88.3 (80.0-98.0) fL MCH 29.4 (27.0-32.0) pg MCHC 33.3 (31.0-37.0) g/dL RDW Std Deviation 46.0 (28.0-62.0) fl RDW Coeff of Brian 14 (11.0-15.0) % Plt Count 241 (150-400) K/uL MPV 9.50 (7.40-12.00) fL Neut % (Auto) 71.9 (48.0-80.0) % Lymph % (Auto) 21.7 (16.0-40.0) % [place] % (Auto) 6.1 (0.0-15.0) % Eos % (Auto) 0.1 (0.0-7.0) % Baso % (Auto) 0.2 (0.0-1.5) % Neut # (Auto) 6.7 H (1.4-5.7) K/uL Lymph # (Auto) 2.0 (0.6-2.4) K/uL [place] # (Auto) 0.6 (0.0-0.8) K/uL Eos # (Auto) 0.0 (0.0-0.7) K/uL Baso # (Auto) 0.0 (0.0-0.1) K/uL Nucleated RBC % 0.0 /100WBC Nucleated RBCs # 0 K/uL D-Dimer, Quantitative 0.82 H (0.0-0.50) mg/L FEU VBG pH (7.31-7.41) VBG pCO2 (35-45) mmHG VBG pO2 (30-40) mmHG VBG HCO3 (22-30) mEq/L VBG Total CO2 (41-51) mmol/L VBG Base Excess (-3.0-3.0) Sodium 130 L (136-148) mmol/L Potassium 4.6 (3.5-5.1) mmol/L Chloride 96 L (98-107) mmol/L Carbon Dioxide 28.1 (21.0-32.0) mmol/L BUN 25 H (7.0-18.0) mg/dL Creatinine 1.5 H (0.8-1.3) mg/dL Est Cr Clr Drug Dosing 46.70 mL/min Estimated GFR (MDRD) 45.6 ml/min Glucose 208 H (74-106) mg/dL Calcium 8.4 L (8.5-10.1) mg/dL Total Bilirubin 0.5 (0.2-1.0) mg/dL AST 35 (15-37) IU/L ALT 29 (14-63) IU/L Alkaline Phosphatase 69 (46-116) U/L Troponin I < 0.050 (0.000-0.056) ng/mL B-Natriuretic Peptide (<100) PG/ML Total Protein 7.3 (6.4-8.2) g/dL Albumin 2.9 L (3.4-5.0) g/dL Globulin 4.4 H (2.6-4.0) g/dL Albumin/Globulin Ratio 0.7 L (0.9-1.6) 05/13/20 05/13/20 Range/Units 10:45 10:45 WBC (4.0-11.0) K/uL RBC (4.50-5.90) M/uL Hgb (13.0-17.0) g/dL Hct (38.0-50.0) % MCV (80.0-98.0) fL MCH (27.0-32.0) pg MCHC (31.0-37.0) g/dL RDW Std Deviation (28.0-62.0) fl RDW Coeff of Brian (11.0-15.0) % Plt Count (150-400) K/uL MPV (7.40-12.00) fL Neut % (Auto) (48.0-80.0) % Lymph % (Auto) (16.0-40.0) % [place] % (Auto) (0.0-15.0) % Eos % (Auto) (0.0-7.0) % Baso % (Auto) (0.0-1.5) % Neut # (Auto) (1.4-5.7) K/uL Lymph # (Auto) (0.6-2.4) K/uL [place] # (Auto) (0.0-0.8) K/uL Eos # (Auto) (0.0-0.7) K/uL Baso # (Auto) (0.0-0.1) K/uL Nucleated RBC % /100WBC Nucleated RBCs # K/uL D-Dimer, Quantitative (0.0-0.50) mg/L FEU VBG pH 7.39 (7.31-7.41) VBG pCO2 46 H (35-45) mmHG VBG pO2 35 (30-40) mmHG VBG HCO3 28 (22-30) mEq/L VBG Total CO2 26 L (41-51) mmol/L VBG Base Excess 2.7 (-3.0-3.0) Sodium (136-148) mmol/L Potassium (3.5-5.1) mmol/L Chloride (98-107) mmol/L Carbon Dioxide (21.0-32.0) mmol/L BUN (7.0-18.0) mg/dL Creatinine (0.8-1.3) mg/dL Est Cr Clr Drug Dosing mL/min Estimated GFR (MDRD) ml/min Glucose (74-106) mg/dL Calcium (8.5-10.1) mg/dL Total Bilirubin (0.2-1.0) mg/dL AST (15-37) IU/L ALT (14-63) IU/L Alkaline Phosphatase (46-116) U/L Troponin I (0.000-0.056) ng/mL B-Natriuretic Peptide 151 H (<100) PG/ML Total Protein (6.4-8.2) g/dL Albumin (3.4-5.0) g/dL Globulin (2.6-4.0) g/dL Albumin/Globulin Ratio (0.9-1.6) Result Diagrams: 05/13/20 10:45 05/13/20 10:45 Sepsis Event Note - Evaluation Sepsis Screening Result: No Definite Risk - Focused Exam Vital Signs: Vital Signs Temp Pulse Resp BP Pulse Ox 05/13/20 11:55 50 L 20 105/83 94 L 05/13/20 10:53 37.3 C 50 L 24 H 151/60 H 89 L Problem List Initiated/Reviewed/Updated: Yes Orders Last 24hrs: Active Orders 24 hr Category Date Time Status Admission Status [Patient Status] [ADT] Stat ADT 05/13/20 13:24 Active Antiembolic Devices [RC] PER UNIT ROUTINE Care 05/13/20 14:47 Ordered Blood Glucose Check, Bedside [RC] TIDAC Care 05/13/20 14:54 Ordered Cardiac Monitoring [RC] . DIRECTED Care 05/13/20 10:20 Active EKG Documentation Completion [RC] STAT Care 05/13/20 10:21 Active Oxygen Therapy [RC] PRN Care 05/13/20 14:44 Ordered Up ad Jacqueline [RC] ASDIRECTED Care 05/13/20 14:44 Ordered VTE/DVT Education [RC] PER UNIT ROUTINE Care 05/13/20 14:44 Ordered Vital Signs [RC] Q4H Care 05/13/20 14:44 Ordered PT Evaluation and Treatment [CONS] Routine Cons 05/13/20 14:44 Ordered [place] [employer] Diet [DIET] Diet 05/13/20 Breakfast Ordered BASIC METABOLIC PANEL,BMP [CHEM] AM Lab 05/14/20 05:11 Ordered CBC W/O DIFF,HEMOGRAM [HEME] AM Lab 05/14/20 05:11 Ordered HEPATIC FUNCTION PANEL,HFP [CHEM] DAILY Lab 05/14/20 14:45 Ordered HEPATIC FUNCTION PANEL,HFP [CHEM] DAILY Lab 05/15/20 14:45 Ordered HEPATIC FUNCTION PANEL,HFP [CHEM] DAILY Lab 05/16/20 14:45 Ordered HEPATIC FUNCTION PANEL,HFP [CHEM] DAILY Lab 05/17/20 14:45 Ordered UA RFX AMELIA AND CULT IF INDIC [URIN] Stat Lab 05/13/20 10:20 Ordered Aspirin [Ecotrin] Med 05/14/20 09:00 Ordered 325 mg PO DAILY Clopidogrel [Plavix] Med 05/14/20 09:00 Ordered 75 mg PO DAILY Dextrose 50% in Water Med 05/13/20 14:54 Ordered 50 ml IV ASDIRECTED PRN Glucagon,Human Recombinant [GlucaGen] Med 05/13/20 14:54 Ordered 1 mg IM ASDIRECTED PRN Insulin Aspart [NovoLOG] Med 05/13/20 17:00 Ordered See Protocol SUBCUT TIDAC Insulin Glarg,Human.Rec.Analog Med 05/13/20 15:00 Ordered 100 unit SQ ASDIRECTED Isosorbide Mononitrate [Imdur] Med 05/14/20 09:00 Ordered 30 mg PO DAILY Lisinopril Med 05/14/20 09:00 Ordered 20 mg PO DAILY Ranolazine [Ranexa] Med 05/13/20 21:00 Ordered 500 mg PO BID Remdesivir 100 mg Med 05/14/20 14:45 Ordered Sodium Chloride 0.9% [Normal Saline] 100 ml IV Q24H Rosuvastatin [Crestor] Med 05/14/20 09:00 Ordered 20 mg PO DAILY Silver Sulfadiazine [Silvadene 1% Cream 50 GM] Med 05/13/20 15:00 Ordered 50 gm TOP ASDIRECTED Sodium Chloride 0.9% [Saline Flush] Med 05/13/20 10:20 Active 10 ml FLUSH ASDIRECTED PRN Sodium Chloride 0.9% [Saline Flush] Med 05/13/20 10:20 Active 2.5 ml FLUSH ASDIRECTED PRN atenoloL [Tenormin] Med 05/13/20 21:00 Ordered 50 mg PO BID hydroCHLOROthiazide Med 05/14/20 09:00 Ordered 25 mg PO DAILY Saline Lock Insert [OM.PC] Stat Oth 05/13/20 10:20 Ordered Sequential Compression Device [OM.PC] Per Unit Routine Oth 05/13/20 14:45 Ordered Resuscitation Status Routine Resus Stat 05/13/20 14:44 Ordered Medication Orders Aspirin (Ecotrin) 325 mg PO DAILY [facility]ID Atenolol (Tenormin) 50 mg PO BID [facility]ID Clopidogrel Bisulfate (Plavix) 75 mg PO DAILY [facility] Dextrose/Water (Dextrose 50% In Water) 50 ml IV ASDIRECTED PRN PRN Reason: Hypoglycemia Glucagon (Glucagen) 1 mg IM ASDIRECTED PRN PRN Reason: Hypoglycemia Hydrochlorothiazide (Hydrochlorothiazide) 25 mg PO DAILY [facility] Remdesivir 100 mg/ Sodium (Chloride) 100 mls @ 100 mls/hr IV Q24H [facility] Stop: 05/17/20 15:44 Insulin Aspart (Novolog) 0 unit SUBCUT TIDAC [facility]; Protocol Isosorbide Mononitrate (Imdur) 30 mg PO DAILY [facility] Non-Formulary Medication (Insulin Glarg,Human.Rec.Analog) 100 unit SQ ASDIRECTED [facility] Non-Formulary Medication (Lisinopril) 20 mg PO DAILY [facility] Ranolazine (Ranexa) 500 mg PO BID [facility] Rosuvastatin Calcium (Crestor) 20 mg PO DAILY [facility] Silver Sulfadiazine (Silvadene 1% Cream 50 Gm) 50 gm TOP ASDIRECTED [facility] Sodium Chloride (Saline Flush) 10 ml FLUSH ASDIRECTED PRN PRN Reason: Keep Vein Open Last Admin: 05/13/20 10:55 Dose: 10 ml Documented by: DELPHINE Sodium Chloride (Saline Flush) 2.5 ml FLUSH ASDIRECTED PRN PRN Reason: Keep Vein Open Last Admin: 05/13/20 10:55 Dose: 2.5 ml Documented by: DELPHINE Assessment/Plan Comment:: 75 yo male admitted for general debility due to COVID illness. Will treat with remdesivir. PAtient was informed of its FDA EUA and consented to its use. Patient is refusing dexamethasone due to concerns of causing hyperglycemia. Will consult PT. Will resume DM and cardioprotective home drug regiment. PAtient dues mild CARLITA, patient received one liter of NS in ED will continue to monitor.
[2020-05-13] MEDS ORDERED: Insulin Aspart 100 Units/ML 3 ML Pen SUBCUT ONE (19:07)
[2020-05-13] MEDS: Insulin Aspart 100 Units/ML 3 ML Pen SUBCUT SCH (19:12)
[2020-05-13] MEDS: Atenolol 50 MG Tab PO SCH (20:38)
[2020-05-13] MEDS: Insulin Glargine,Human Rec. Analog 100 Units/ML 3 ML Pen SUBCUT SCH (21:41)
[2020-05-13] MEDS: Rosuvastatin 10 MG Tab PO SCH (21:42)
[2020-05-13] MEDS: Clopidogrel 75 MG Tab PO SCH (21:42)
[2020-05-14 06:37] LABS: POTASSIUM,K 5.1 mmol/L (3.5-5.1)
[2020-05-14] MEDS ORDERED: 50% Dextrose in Water 50 ML Syringe IVPUSH PRN (07:47)
[2020-05-14] MEDS ORDERED: Glucagon,Human Recombinant 1 MG Vial IM PRN (07:47)
[2020-05-14] MEDS ORDERED: Insulin Aspart 100 Units/ML 3 ML Pen SUBCUT ONE (07:47)
[2020-05-14] MEDS: Insulin Aspart 100 Units/ML 3 ML Pen SUBCUT SCH ×3 (08:14→18:41)
[2020-05-14] MEDS ORDERED: Non-Formulary Medication 1 Each (Lisinopril 20 MG) PO SCH (09:00)
[2020-05-14] MEDS: Hydrochlorothiazide 25 MG Tab PO SCH (09:44)
[2020-05-14] MEDS: Aspirin 325 MG Tab.EC PO SCH (09:44)
[2020-05-14] MEDS: Isosorbide Mononitrate 30 MG Tab.ER PO SCH (09:45)
[2020-05-14] MEDS ORDERED: Lisinopril 10 MG Tab PO SCH (09:51)
[2020-05-14] MEDS: Insulin Glargine,Human Rec. Analog 100 Units/ML 3 ML Pen SUBCUT SCH ×2 (10:27→20:24)
[2020-05-14] MEDS: Atenolol 50 MG Tab PO SCH (10:29)
[2020-05-14] MEDS: Lisinopril 10 MG Tab PO SCH (10:38)
--- NOTE | 2020-05-14 14:09 | PCM.PN ---
- General Info Date of Service: 05/14/20 Admission Dx/Problem (Free Text): Admission Diagnosis/Problem Admission Diagnosis/Problem Weakness Functional Status: Reports: Pain Controlled, Tolerating Diet, Ambulating - Review of Systems General: Reports: Weakness, Fatigue, Malaise. Denies: Fever, Chills Pulmonary: Denies: Shortness of Breath, Pleuritic Chest Pain Cardiovascular: Denies: Chest Pain, Palpitations, Dyspnea on Exertion Gastrointestinal: Denies: Abdominal Pain, Constipation, Decreased Appetite Genitourinary: Denies: Dysuria, Frequency, Burning Musculoskeletal: Denies: Neck Pain, Shoulder Pain, Arm Pain - Patient Data Vitals - Most Recent: Last Vital Signs Temp 36.4 C 05/14/20 11:28 Pulse 52 L 05/14/20 11:28 Resp 16 05/14/20 11:28 BP 128/94 H 05/14/20 11:28 Pulse Ox 93 L 05/14/20 11:28 Weight - Most Recent: 131.179 kg Lab Results Last 24 Hours: Laboratory Results - last 24 hr 05/13/20 05/13/20 05/13/20 Range/Units 15:15 17:59 21:36 WBC (4.0-11.0) K/uL RBC (4.50-5.90) M/uL Hgb (13.0-17.0) g/dL Hct (38.0-50.0) % MCV (80.0-98.0) fL MCH (27.0-32.0) pg MCHC (31.0-37.0) g/dL RDW Std Deviation (28.0-62.0) fl RDW Coeff of Brian (11.0-15.0) % Plt Count (150-400) K/uL MPV (7.40-12.00) fL Nucleated RBC % /100WBC Nucleated RBCs # K/uL Sodium (136-148) mmol/L Potassium (3.5-5.1) mmol/L Chloride (98-107) mmol/L Carbon Dioxide (21.0-32.0) mmol/L BUN (7.0-18.0) mg/dL Creatinine (0.8-1.3) mg/dL Est Cr Clr Drug Dosing mL/min Estimated GFR (MDRD) ml/min Glucose (74-106) mg/dL POC Glucose 237 H 329 H 328 H (60-110) mg/dL Calcium (8.5-10.1) mg/dL Urine Color Urine Appearance Urine pH (5.0-8.0) Ur Specific [place] (1.001-1.035) Urine Protein (NEGATIVE) mg/dL Urine Glucose (UA) (NEGATIVE) mg/dL Urine Ketones (NEGATIVE) mg/dL Urine Occult Blood (NEGATIVE) Urine Nitrite (NEGATIVE) Urine Bilirubin (NEGATIVE) Urine Urobilinogen (<2.0) EU/dL Ur Leukocyte Esterase (NEGATIVE) 05/13/20 05/14/20 05/14/20 Range/Units 21:50 05:40 05:40 WBC 7.98 (4.0-11.0) K/uL RBC 4.52 (4.50-5.90) M/uL Hgb 13.4 (13.0-17.0) g/dL Hct 40.2 (38.0-50.0) % MCV 88.9 (80.0-98.0) fL MCH 29.6 (27.0-32.0) pg MCHC 33.3 (31.0-37.0) g/dL RDW Std Deviation 46.4 (28.0-62.0) fl RDW Coeff of Brian 14 (11.0-15.0) % Plt Count 267 (150-400) K/uL MPV 9.80 (7.40-12.00) fL Nucleated RBC % 0.0 /100WBC Nucleated RBCs # 0 K/uL Sodium 136 (136-148) mmol/L Potassium 5.1 (3.5-5.1) mmol/L Chloride 100 (98-107) mmol/L Carbon Dioxide 29.0 (21.0-32.0) mmol/L BUN 34 H (7.0-18.0) mg/dL Creatinine 1.5 H (0.8-1.3) mg/dL Est Cr Clr Drug Dosing 48.09 mL/min Estimated GFR (MDRD) 45.6 ml/min Glucose 296 H (74-106) mg/dL POC Glucose (60-110) mg/dL Calcium 8.5 (8.5-10.1) mg/dL Urine Color YELLOW Urine Appearance CLEAR Urine pH 5.5 (5.0-8.0) Ur Specific [place] 1.015 (1.001-1.035) Urine Protein NEGATIVE (NEGATIVE) mg/dL Urine Glucose (UA) 250 H (NEGATIVE) mg/dL Urine Ketones NEGATIVE (NEGATIVE) mg/dL Urine Occult Blood NEGATIVE (NEGATIVE) Urine Nitrite NEGATIVE (NEGATIVE) Urine Bilirubin NEGATIVE (NEGATIVE) Urine Urobilinogen 0.2 (<2.0) EU/dL Ur Leukocyte Esterase NEGATIVE (NEGATIVE) 05/14/20 Range/Units 06:55 WBC (4.0-11.0) K/uL RBC (4.50-5.90) M/uL Hgb (13.0-17.0) g/dL Hct (38.0-50.0) % MCV (80.0-98.0) fL MCH (27.0-32.0) pg MCHC (31.0-37.0) g/dL RDW Std Deviation (28.0-62.0) fl RDW Coeff of Brian (11.0-15.0) % Plt Count (150-400) K/uL MPV (7.40-12.00) fL Nucleated RBC % /100WBC Nucleated RBCs # K/uL Sodium (136-148) mmol/L Potassium (3.5-5.1) mmol/L Chloride (98-107) mmol/L Carbon Dioxide (21.0-32.0) mmol/L BUN (7.0-18.0) mg/dL Creatinine (0.8-1.3) mg/dL Est Cr Clr Drug Dosing mL/min Estimated GFR (MDRD) ml/min Glucose (74-106) mg/dL POC Glucose 275 H (60-110) mg/dL Calcium (8.5-10.1) mg/dL Urine Color Urine Appearance Urine pH (5.0-8.0) Ur Specific [place] (1.001-1.035) Urine Protein (NEGATIVE) mg/dL Urine Glucose (UA) (NEGATIVE) mg/dL Urine Ketones (NEGATIVE) mg/dL Urine Occult Blood (NEGATIVE) Urine Nitrite (NEGATIVE) Urine Bilirubin (NEGATIVE) Urine Urobilinogen (<2.0) EU/dL Ur Leukocyte Esterase (NEGATIVE) Med Orders - Current: Current Medications Aspirin (Ecotrin) 325 mg PO DAILY [facility]ID Last Admin: 05/14/20 09:44 Dose: 325 mg Documented by: Atenolol (Tenormin) 50 mg PO BID [facility] Last Admin: 05/14/20 10:29 Dose: Not Given Documented by: Clopidogrel Bisulfate (Plavix) 75 mg PO BEDTIME [facility] Last Admin: 05/13/20 21:42 Dose: 75 mg Documented by: Dextrose/Water (Dextrose 50% In Water) 50 ml IV ASDIRECTED PRN PRN Reason: Hypoglycemia Dextrose/Water (Dextrose 50% In Water) 50 ml IV ASDIRECTED PRN PRN Reason: Hypoglycemia Dextrose/Water (Dextrose 50% In Water) 50 ml IVPUSH ASDIRECTED PRN PRN Reason: Hypoglycemia Glucagon (Glucagen) 1 mg IM ASDIRECTED PRN PRN Reason: Hypoglycemia Glucagon (Glucagen) 1 mg IM ASDIRECTED PRN PRN Reason: Hypoglycemia Glucagon (Glucagen) 1 mg IM ASDIRECTED PRN PRN Reason: Hypoglycemia Hydrochlorothiazide (Hydrochlorothiazide) 25 mg PO DAILY [facility] Last Admin: 05/14/20 09:44 Dose: 25 mg Documented by: Remdesivir 100 mg/ Sodium (Chloride) 100 mls @ 100 mls/hr IV Q24H [facility] Stop: 05/17/20 15:44 Insulin Aspart (Novolog) 0 unit SUBCUT TIDAC [facility]; Protocol Last Admin: 05/14/20 12:07 Dose: 12 units Documented by: Insulin Glargine (Lantus Solostar) 50 units SUBCUT BID [facility] Last Admin: 05/14/20 10:27 Dose: 50 unit Documented by: Isosorbide Mononitrate (Imdur) 30 mg PO DAILY [facility] Last Admin: 05/14/20 09:45 Dose: 30 mg Documented by: Lisinopril (Prinivil) 20 mg PO DAILY [facility] Last Admin: 05/14/20 10:38 Dose: 20 mg Documented by: Ranolazine (Ranexa) 500 mg PO BID [facility] Last Admin: 05/14/20 10:30 Dose: 500 mg Documented by: Rosuvastatin Calcium (Crestor) 20 mg PO BEDTIME [facility] Last Admin: 05/13/20 21:42 Dose: 20 mg Documented by: Silver Sulfadiazine (Silvadene 1% Cream 50 Gm) 50 gm TOP ASDIRECTED [facility] Sodium Chloride (Saline Flush) 10 ml FLUSH ASDIRECTED PRN PRN Reason: Keep Vein Open Last Admin: 05/13/20 10:55 Dose: 10 ml Documented by: Sodium Chloride (Saline Flush) 2.5 ml FLUSH ASDIRECTED PRN PRN Reason: Keep Vein Open Last Admin: 05/13/20 10:55 Dose: 2.5 ml Documented by: Discontinued Medications Dexamethasone (Decadron) 6 mg IVPUSH ONETIME ONE Stop: 05/13/20 11:02 Last Admin: 05/13/20 11:53 Dose: 6 mg Documented by: Sodium Chloride (Normal Saline) 1,000 mls @ 999 mls/hr IV STAT ONE Stop: 05/13/20 11:49 Last Admin: 05/13/20 10:54 Dose: 999 mls/hr Documented by: Remdesivir 200 mg/ Sodium (Chloride) 250 mls @ 250 mls/hr IV ONETIME ONE Stop: 05/13/20 14:44 Last Admin: 05/13/20 19:00 Dose: Not Given Documented by: Remdesivir 200 mg/ Sodium (Chloride) 250 mls @ 250 mls/hr IV ONETIME ONE Stop: 05/13/20 18:59 Last Admin: 05/13/20 19:20 Dose: 250 mls/hr Documented by: Insulin Aspart (Novolog) 10 unit SUBCUT DAILY ONE Stop: 05/13/20 19:08 Last Admin: 05/13/20 19:28 Dose: 10 units Documented by: Insulin Aspart (Novolog) 6 unit SUBCUT DAILY ONE Stop: 05/14/20 07:48 Last Admin: 05/14/20 08:15 Dose: 6 units Documented by: Iopamidol (Isovue Multipack-370 (76%)) 100 ml IVPUSH ONETIME ONE Stop: 05/13/20 12:38 Last Admin: 05/13/20 12:38 Dose: 100 ml Documented by: Lisinopril (Prinivil) 20 mg PO DAILY [facility] Non-Formulary Medication (Insulin Glarg,Human.Rec.Analog) 100 unit SQ ASDIRECTED [facility] Non-Formulary Medication (Lisinopril) 20 mg PO DAILY [facility] Last Admin: 05/14/20 11:02 Dose: Not Given Documented by: Ondansetron HCl (Zofran) 4 mg IVPUSH ONETIME ONE Stop: 05/13/20 10:50 Last Admin: 05/13/20 10:55 Dose: 4 mg Documented by: - Exam Quality Assessment: Supplemental Oxygen General: Alert Lungs: Normal Respiratory Effort, Crackles. No: Rales, Rhonchi Cardiovascular: Regular Rate, Regular Rhythm GI/Abdominal Exam: Normal Bowel Sounds, Soft, Non-Tender Sepsis Event Note - Evaluation Sepsis Screening Result: No Definite Risk - Focused Exam Vital Signs: Vital Signs Temp Pulse Resp BP BP Pulse Ox 05/14/20 11:28 36.4 C 52 L 16 128/94 H 93 L 05/14/20 10:38 157/68 H 05/14/20 09:45 157/68 H 05/14/20 07:58 35.5 C L 67 18 157/68 H 95 05/14/20 04:00 36.1 C 67 17 151/79 H 95 - Problem List & Annotations (1) Bradycardia SNOMED Code(s): 64680429 Code(s): R00.1 - BRADYCARDIA, UNSPECIFIED Status: Acute Current Visit: Yes (2) COVID-19 virus infection SNOMED Code(s): 330341884 Code(s): U07.1 - COVID-19 Status: Acute Current Visit: Yes (3) Ulcer of toe of left foot SNOMED Code(s): 805259511 Code(s): L97.529 - NON-PRESSURE CHRONIC ULCER OTH PRT LEFT FOOT W UNSP SEVERITY Status: Acute Current Visit: Yes Qualifiers: Non-pressure ulcer stage: limited to breakdown of skin Qualified Code(s): L97.521 - Non-pressure chronic ulcer of other part of left foot limited to breakdown of skin (4) Weakness SNOMED Code(s): 75898174 Code(s): R53.1 - WEAKNESS Status: Acute Current Visit: Yes (5) CAD (coronary artery disease) SNOMED Code(s): 18301623 Code(s): I25.10 - ATHSCL HEART DISEASE OF [place] CORONARY ARTERY W/O ANG PCTRS Status: Acute Current Visit: No (6) Acute kidney injury SNOMED Code(s): 84168776, 97591410 Code(s): N17.9 - ACUTE KIDNEY FAILURE, UNSPECIFIED Status: Acute Current Visit: Yes (7) Diabetes mellitus type 2 SNOMED Code(s): 39767644 Code(s): E11.9 - TYPE 2 DIABETES MELLITUS WITHOUT COMPLICATIONS Status: Acute Current Visit: No - Problem List Review Problem List Initiated/Reviewed/Updated: Yes - My Orders Last 24 Hours: My Active Orders 05/14/20 10:10 CPAP Noctural Home [RT BiPAP/CPAP] [RC] ASDIRECTED 05/15/20 05:11 BMP [BASIC METABOLIC PANEL,BMP] [CHEM] AM CBC WITH AUTO DIFF [HEME] AM MAGNESIUM [CHEM] AM PHOSPHORUS [CHEM] AM - Plan Plan:: 75 yo male admitted for general debility due to COVID illness. cont remdesivir. Patient was informed of its FDA EUA and consented to its use. Patient is refusing dexamethasone due to concerns of causing hyperglycemia SSI for DM PT on board Will resume DM and cardioprotective home drug regiment. CARLITA, stable, cont to monitor.
[2020-05-14 15:47] LABS: BILIRUBIN INDIRECT 0.2
[2020-05-14] MEDS: REMDESIVIR 100 MG in Sodium Chloride 0.9% 100 ML IV SCH (16:27)
[2020-05-14] MEDS: Rosuvastatin 10 MG Tab PO SCH (20:23)
[2020-05-14] MEDS: Clopidogrel 75 MG Tab PO SCH (20:24)
[2020-05-14] MEDS ORDERED: Latanoprost 0.005% Ophth Soln 2.5 ML Bottle EYEBOTH SCH (21:00)
[2020-05-15 06:34] LABS: CARBON DIOXIDE,CO2 28.8 mmol/L (21.0-32.0); POTASSIUM,K 4.9 mmol/L (3.5-5.1)
[2020-05-15] MEDS: Atenolol 50 MG Tab PO SCH (09:26)
[2020-05-15] MEDS: Isosorbide Mononitrate 30 MG Tab.ER PO SCH (09:27)
[2020-05-15] MEDS: Hydrochlorothiazide 25 MG Tab PO SCH (09:27)
[2020-05-15] MEDS: Aspirin 325 MG Tab.EC PO SCH (09:27)
[2020-05-15] MEDS: Lisinopril 10 MG Tab PO SCH (09:27)
[2020-05-15] MEDS: Insulin Aspart 100 Units/ML 3 ML Pen SUBCUT SCH ×4 (09:31→18:15)
[2020-05-15] MEDS: Insulin Glargine,Human Rec. Analog 100 Units/ML 3 ML Pen SUBCUT SCH ×2 (09:32→20:19)
--- NOTE | 2020-05-15 12:52 | PCM.PN ---
- General Info Date of Service: 05/15/20 Admission Dx/Problem (Free Text): Admission Diagnosis/Problem Admission Diagnosis/Problem Weakness Subjective Update: seen at bedside, resting comfortably, sates he still feels very tired and weak but is able to ambulate back and forth from bathroom safely per nursing. no chest pain, SOB, palpitations, syncope Functional Status: Reports: Pain Controlled, Tolerating Diet, Ambulating - Review of Systems General: Reports: Weakness, Fatigue, Malaise. Denies: Fever, Chills, Night Sweats Pulmonary: Denies: Shortness of Breath, Pleuritic Chest Pain Cardiovascular: Denies: Chest Pain, Palpitations, Dyspnea on Exertion Gastrointestinal: Denies: Abdominal Pain, Constipation, Decreased Appetite Genitourinary: Denies: Dysuria, Frequency, Burning Musculoskeletal: Denies: Neck Pain, Shoulder Pain Skin: Denies: Cyanosis, Jaundice, Mottled - Patient Data Vitals - Most Recent: Last Vital Signs Temp 36.4 C 05/15/20 12:00 Pulse 55 L 05/15/20 12:00 Resp 18 05/15/20 12:00 BP 110/56 L 05/15/20 12:00 Pulse Ox 93 L 05/15/20 12:00 Weight - Most Recent: 131.179 kg I&O - Last 24 Hours: Intake & Output 05/14/20 05/15/20 05/15/20 22:59 06:59 14:59 Intake Total 1300 850 Output Total 0 Balance 1300 850 Lab Results Last 24 Hours: Laboratory Results - last 24 hr 05/14/20 05/14/20 05/14/20 Range/Units 11:30 14:58 17:47 WBC (4.0-11.0) K/uL RBC (4.50-5.90) M/uL Hgb (13.0-17.0) g/dL Hct (38.0-50.0) % MCV (80.0-98.0) fL MCH (27.0-32.0) pg MCHC (31.0-37.0) g/dL RDW Std Deviation (28.0-62.0) fl RDW Coeff of Brian (11.0-15.0) % Plt Count (150-400) K/uL MPV (7.40-12.00) fL Add Manual Diff Neutrophils % (Manual) (48.0-80.0) % Band Neutrophils % % Lymphocytes % (Manual) (16.0-40.0) % Monocytes % (Manual) (0.0-15.0) % Eosinophils % (Manual) (0.0-7.0) % Nucleated RBC % /100WBC Absolute Seg Neuts (1.4-5.7) Band Neutrophils # Lymphocytes # (Manual) (0.6-2.4) Monocytes # (Manual) (0.0-0.8) Eosinophils # (Manual) (0.0-0.7) Nucleated RBCs # K/uL Sodium (136-148) mmol/L Potassium (3.5-5.1) mmol/L Chloride (98-107) mmol/L Carbon Dioxide (21.0-32.0) mmol/L BUN (7.0-18.0) mg/dL Creatinine (0.8-1.3) mg/dL Est Cr Clr Drug Dosing mL/min Estimated GFR (MDRD) ml/min Glucose (74-106) mg/dL POC Glucose 303 H 278 H (60-110) mg/dL Calcium (8.5-10.1) mg/dL Phosphorus (2.6-4.7) mg/dL Magnesium (1.8-2.4) mg/dL Total Bilirubin 0.3 (0.2-1.0) mg/dL Direct Bilirubin 0.10 (0.0-0.5) mg/dL Indirect Bilirubin 0.20 AST 37 (15-37) IU/L ALT 31 (14-63) IU/L Alkaline Phosphatase 71 (46-116) U/L Total Protein 7.2 (6.4-8.2) g/dL Albumin 2.7 L (3.4-5.0) g/dL Globulin 4.5 H (2.6-4.0) g/dL Albumin/Globulin Ratio 0.6 L (0.9-1.6) 05/15/20 05/15/20 05/15/20 Range/Units 05:50 05:50 06:19 WBC 8.69 (4.0-11.0) K/uL RBC 4.49 L (4.50-5.90) M/uL Hgb 13.3 (13.0-17.0) g/dL Hct 39.6 (38.0-50.0) % MCV 88.2 (80.0-98.0) fL MCH 29.6 (27.0-32.0) pg MCHC 33.6 (31.0-37.0) g/dL RDW Std Deviation 46.2 (28.0-62.0) fl RDW Coeff of Brian 14 (11.0-15.0) % Plt Count 310 (150-400) K/uL MPV 10.00 (7.40-12.00) fL Add Manual Diff YES Neutrophils % (Manual) 73 (48.0-80.0) % Band Neutrophils % 1 % Lymphocytes % (Manual) 18 (16.0-40.0) % Monocytes % (Manual) 7 (0.0-15.0) % Eosinophils % (Manual) 1 (0.0-7.0) % Nucleated RBC % 0.0 /100WBC Absolute Seg Neuts 6.3 H (1.4-5.7) Band Neutrophils # 0.1 Lymphocytes # (Manual) 1.6 (0.6-2.4) Monocytes # (Manual) 0.6 (0.0-0.8) Eosinophils # (Manual) 0.1 (0.0-0.7) Nucleated RBCs # 0 K/uL Sodium 137 (136-148) mmol/L Potassium 4.9 (3.5-5.1) mmol/L Chloride 102 (98-107) mmol/L Carbon Dioxide 28.8 (21.0-32.0) mmol/L BUN 38 H (7.0-18.0) mg/dL Creatinine 1.2 (0.8-1.3) mg/dL Est Cr Clr Drug Dosing 60.11 mL/min Estimated GFR (MDRD) 59.0 ml/min Glucose 253 H (74-106) mg/dL POC Glucose 228 H (60-110) mg/dL Calcium 8.7 (8.5-10.1) mg/dL Phosphorus 2.4 L (2.6-4.7) mg/dL Magnesium 2.2 (1.8-2.4) mg/dL Total Bilirubin (0.2-1.0) mg/dL Direct Bilirubin (0.0-0.5) mg/dL Indirect Bilirubin AST (15-37) IU/L ALT (14-63) IU/L Alkaline Phosphatase (46-116) U/L Total Protein (6.4-8.2) g/dL Albumin (3.4-5.0) g/dL Globulin (2.6-4.0) g/dL Albumin/Globulin Ratio (0.9-1.6) 05/15/20 Range/Units 09:13 WBC (4.0-11.0) K/uL RBC (4.50-5.90) M/uL Hgb (13.0-17.0) g/dL Hct (38.0-50.0) % MCV (80.0-98.0) fL MCH (27.0-32.0) pg MCHC (31.0-37.0) g/dL RDW Std Deviation (28.0-62.0) fl RDW Coeff of Brian (11.0-15.0) % Plt Count (150-400) K/uL MPV (7.40-12.00) fL Add Manual Diff Neutrophils % (Manual) (48.0-80.0) % Band Neutrophils % % Lymphocytes % (Manual) (16.0-40.0) % Monocytes % (Manual) (0.0-15.0) % Eosinophils % (Manual) (0.0-7.0) % Nucleated RBC % /100WBC Absolute Seg Neuts (1.4-5.7) Band Neutrophils # Lymphocytes # (Manual) (0.6-2.4) Monocytes # (Manual) (0.0-0.8) Eosinophils # (Manual) (0.0-0.7) Nucleated RBCs # K/uL Sodium (136-148) mmol/L Potassium (3.5-5.1) mmol/L Chloride (98-107) mmol/L Carbon Dioxide (21.0-32.0) mmol/L BUN (7.0-18.0) mg/dL Creatinine (0.8-1.3) mg/dL Est Cr Clr Drug Dosing mL/min Estimated GFR (MDRD) ml/min Glucose (74-106) mg/dL POC Glucose 198 H (60-110) mg/dL Calcium (8.5-10.1) mg/dL Phosphorus (2.6-4.7) mg/dL Magnesium (1.8-2.4) mg/dL Total Bilirubin (0.2-1.0) mg/dL Direct Bilirubin (0.0-0.5) mg/dL Indirect Bilirubin AST (15-37) IU/L ALT (14-63) IU/L Alkaline Phosphatase (46-116) U/L Total Protein (6.4-8.2) g/dL Albumin (3.4-5.0) g/dL Globulin (2.6-4.0) g/dL Albumin/Globulin Ratio (0.9-1.6) Med Orders - Current: Current Medications Aspirin (Ecotrin) 325 mg PO DAILY [facility] Last Admin: 05/15/20 09:27 Dose: 325 mg Documented by: Atenolol (Tenormin) 50 mg PO DAILY [facility] Last Admin: 05/15/20 09:26 Dose: Not Given Documented by: Clopidogrel Bisulfate (Plavix) 75 mg PO BEDTIME [facility] Last Admin: 05/14/20 20:24 Dose: 75 mg Documented by: Dextrose/Water (Dextrose 50% In Water) 50 ml IV ASDIRECTED PRN PRN Reason: Hypoglycemia Dextrose/Water (Dextrose 50% In Water) 50 ml IV ASDIRECTED PRN PRN Reason: Hypoglycemia Dextrose/Water (Dextrose 50% In Water) 50 ml IVPUSH ASDIRECTED PRN PRN Reason: Hypoglycemia Glucagon (Glucagen) 1 mg IM ASDIRECTED PRN PRN Reason: Hypoglycemia Glucagon (Glucagen) 1 mg IM ASDIRECTED PRN PRN Reason: Hypoglycemia Glucagon (Glucagen) 1 mg IM ASDIRECTED PRN PRN Reason: Hypoglycemia Hydrochlorothiazide (Hydrochlorothiazide) 25 mg PO DAILY [facility] Last Admin: 05/15/20 09:27 Dose: 25 mg Documented by: Remdesivir 100 mg/ Sodium (Chloride) 100 mls @ 100 mls/hr IV Q24H [facility] Stop: 05/17/20 15:44 Last Admin: 05/14/20 16:27 Dose: 100 mls/hr Documented by: Insulin Aspart (Novolog) 0 unit SUBCUT TIDAC [facility]; Protocol Last Admin: 05/15/20 12:29 Dose: Not Given Documented by: Insulin Glargine (Lantus Solostar) 50 units SUBCUT BID [facility] Last Admin: 05/15/20 09:32 Dose: 50 unit Documented by: Isosorbide Mononitrate (Imdur) 30 mg PO DAILY [facility] Last Admin: 05/15/20 09:27 Dose: 30 mg Documented by: Lisinopril (Prinivil) 20 mg PO DAILY [facility] Last Admin: 05/15/20 09:27 Dose: 20 mg Documented by: Latanoprost 0.005% Ophth Soln 2.5 Ml Bottle 0 each EYEBOTH BEDTIME DAVID Ranolazine (Ranexa) 500 mg PO BID [facility] Last Admin: 05/15/20 09:27 Dose: 500 mg Documented by: Rosuvastatin Calcium (Crestor) 20 mg PO BEDTIME [facility] Last Admin: 05/14/20 20:23 Dose: 20 mg Documented by: Silver Sulfadiazine (Silvadene 1% Cream 50 Gm) 50 gm TOP ASDIRECTED DAVID Sodium Chloride (Saline Flush) 10 ml FLUSH ASDIRECTED PRN PRN Reason: Keep Vein Open Last Admin: 05/13/20 10:55 Dose: 10 ml Documented by: Sodium Chloride (Saline Flush) 2.5 ml FLUSH ASDIRECTED PRN PRN Reason: Keep Vein Open Last Admin: 05/13/20 10:55 Dose: 2.5 ml Documented by: Discontinued Medications Atenolol (Tenormin) 50 mg PO BID [facility] Last Admin: 05/14/20 10:29 Dose: Not Given Documented by: Dexamethasone (Decadron) 6 mg IVPUSH ONETIME ONE Stop: 05/13/20 11:02 Last Admin: 05/13/20 11:53 Dose: 6 mg Documented by: Sodium Chloride (Normal Saline) 1,000 mls @ 999 mls/hr IV STAT ONE Stop: 05/13/20 11:49 Last Admin: 05/13/20 10:54 Dose: 999 mls/hr Documented by: Remdesivir 200 mg/ Sodium (Chloride) 250 mls @ 250 mls/hr IV ONETIME ONE Stop: 05/13/20 14:44 Last Admin: 05/13/20 19:00 Dose: Not Given Documented by: Remdesivir 200 mg/ Sodium (Chloride) 250 mls @ 250 mls/hr IV ONETIME ONE Stop: 05/13/20 18:59 Last Admin: 05/13/20 19:20 Dose: 250 mls/hr Documented by: Insulin Aspart (Novolog) 10 unit SUBCUT DAILY ONE Stop: 05/13/20 19:08 Last Admin: 05/13/20 19:28 Dose: 10 units Documented by: Insulin Aspart (Novolog) 6 unit SUBCUT DAILY ONE Stop: 05/14/20 07:48 Last Admin: 05/14/20 08:15 Dose: 6 units Documented by: Iopamidol (Isovue Multipack-370 (76%)) 100 ml IVPUSH ONETIME ONE Stop: 05/13/20 12:38 Last Admin: 05/13/20 12:38 Dose: 100 ml Documented by: Latanoprost (Xalatan 0.005% Ophth Soln) 0 ml EYEBOTH BEDTIME DAVID Last Admin: 05/14/20 20:26 Dose: 1 drop Documented by: Lisinopril (Prinivil) 20 mg PO DAILY [facility] Non-Formulary Medication (Insulin Glarg,Human.Rec.Analog) 100 unit SQ ASDIRECTED [facility] Non-Formulary Medication (Lisinopril) 20 mg PO DAILY [facility] Last Admin: 05/14/20 11:02 Dose: Not Given Documented by: Ondansetron HCl (Zofran) 4 mg IVPUSH ONETIME ONE Stop: 05/13/20 10:50 Last Admin: 05/13/20 10:55 Dose: 4 mg Documented by: - Exam Quality Assessment: No: Supplemental Oxygen General: Alert, Oriented, Cooperative, No Acute Distress Lungs: Clear to Auscultation, Normal Respiratory Effort Cardiovascular: Regular Rate, Regular Rhythm GI/Abdominal Exam: Normal Bowel Sounds, Soft, Non-Tender Wound/Incisions: Healing Well, Dressing Dry and Intact, No Drainage Sepsis Event Note - Evaluation Sepsis Screening Result: No Definite Risk - Focused Exam Vital Signs: Vital Signs Temp Pulse Pulse Resp BP BP Pulse Ox 05/15/20 12:00 36.4 C 55 L 18 110/56 L 93 L 05/15/20 09:27 115/78 05/15/20 09:26 55 L 05/15/20 09:17 36.4 C 55 L 18 115/78 93 L - Problem List & Annotations (1) Bradycardia SNOMED Code(s): 01561185 Code(s): R00.1 - BRADYCARDIA, UNSPECIFIED Status: Acute Current Visit: Yes (2) COVID-19 virus infection SNOMED Code(s): 638055480 Code(s): U07.1 - COVID-19 Status: Acute Current Visit: Yes (3) Ulcer of toe of left foot SNOMED Code(s): 431408204 Code(s): L97.529 - NON-PRESSURE CHRONIC ULCER OTH PRT LEFT FOOT W UNSP SEVERITY Status: Acute Current Visit: Yes Qualifiers: Non-pressure ulcer stage: limited to breakdown of skin Qualified Code(s): L97.521 - Non-pressure chronic ulcer of other part of left foot limited to breakdown of skin (4) Weakness SNOMED Code(s): 71388991 Code(s): R53.1 - WEAKNESS Status: Acute Current Visit: Yes (5) CAD (coronary artery disease) SNOMED Code(s): 11115569 Code(s): I25.10 - ATHSCL HEART DISEASE OF [place] CORONARY ARTERY W/O ANG PCTRS Status: Acute Current Visit: No (6) Acute kidney injury SNOMED Code(s): 55699846, 28293421 Code(s): N17.9 - ACUTE KIDNEY FAILURE, UNSPECIFIED Status: Acute Current Visit: Yes (7) Diabetes mellitus type 2 SNOMED Code(s): 42425460 Code(s): E11.9 - TYPE 2 DIABETES MELLITUS WITHOUT COMPLICATIONS Status: Acute Current Visit: No - Problem List Review Problem List Initiated/Reviewed/Updated: Yes - My Orders Last 24 Hours: My Active Orders 05/15/20 09:00 atenoloL [Tenormin] 50 mg PO DAILY - Plan Plan:: 75 yo male admitted for general debility due to COVID illness. cont remdesivir, if continues to be on RA, will possibly dc by AM Patient is refusing dexamethasone due to concerns of causing hyperglycemia SSI for DM Will resume DM and cardioprotective home drug regiment, decreased frequency of atenolol due to bradycardia . CARLITA, resolved cont wound care Patient still feels weak, will need another session of PT as there was no PT available today, before he can be safely discharged home
[2020-05-15 15:29] LABS: BILIRUBIN INDIRECT 0.2
[2020-05-15] MEDS: REMDESIVIR 100 MG in Sodium Chloride 0.9% 100 ML IV SCH (16:03)
[2020-05-15] MEDS ORDERED: Docusate Sodium 100 MG Cap PO PRN (18:40)
[2020-05-15] MEDS: Latanoprost 0.005% Ophth Soln 2.5 ML Bottle EYEBOTH SCH (20:19)
[2020-05-15] MEDS: Clopidogrel 75 MG Tab PO SCH (20:22)
[2020-05-15] MEDS: Rosuvastatin 10 MG Tab PO SCH (20:22)
[2020-05-16 06:59] LABS: BLOOD UREA NITROGEN,BUN 27 mg/dL (7.0-18.0); CARBON DIOXIDE,CO2 28.7 mmol/L (21.0-32.0); CHLORIDE,CL 100 mmol/L (98-107); GLUCOSE RANDOM 212 mg/dL (74-106); POTASSIUM,K 4.5 mmol/L (3.5-5.1); SODIUM,NA 135 mmol/L (136-148)
[2020-05-16] MEDS: Isosorbide Mononitrate 30 MG Tab.ER PO SCH (08:07)
[2020-05-16] MEDS: Atenolol 50 MG Tab PO SCH (08:07)
[2020-05-16] MEDS: Aspirin 325 MG Tab.EC PO SCH (08:07)
[2020-05-16] MEDS: Lisinopril 10 MG Tab PO SCH (08:07)
[2020-05-16] MEDS: Hydrochlorothiazide 25 MG Tab PO SCH (08:07)
[2020-05-16] MEDS: Omeprazole 20 MG Cap.CR PO SCH (08:07)
[2020-05-16] MEDS: Insulin Aspart 100 Units/ML 3 ML Pen SUBCUT SCH ×3 (08:09→18:11)
[2020-05-16] MEDS: Insulin Glargine,Human Rec. Analog 100 Units/ML 3 ML Pen SUBCUT SCH ×2 (09:09→20:54)
[2020-05-16] MEDS ORDERED: Polyethylene Glycol 3350 Powder 17 GM Packet PO ONE (10:03)
--- NOTE | 2020-05-16 11:24 | PCM.PN ---
- General Info Date of Service: 05/16/20 Admission Dx/Problem (Free Text): Admission Diagnosis/Problem Admission Diagnosis/Problem Weakness Subjective Update: Reports he is feeling constipated today. Denies any chest pain or shortness of breath. Reports mild cough that is nonproductive. He is eating and drinking well reports appetite has improved. Continues to have weakness. But this is slowly improving. Functional Status: Reports: Pain Controlled, Tolerating Diet, Ambulating, Urinating - Review of Systems General: Reports: Fatigue, Malaise (Generalized) HEENT: Reports: No Symptoms. Denies: Headaches, Sore Throat, Visual Changes Pulmonary: Reports: Cough. Denies: Shortness of Breath, Sputum, Wheezing Cardiovascular: Denies: Chest Pain Gastrointestinal: Reports: Constipation. Denies: Abdominal Pain, Nausea, Vomiting Genitourinary: Reports: No Symptoms. Denies: Dysuria, Frequency Musculoskeletal: Reports: No Symptoms Skin: Reports: No Symptoms Neurological: Reports: No Symptoms Psychiatric: Reports: No Symptoms - Patient Data Vitals - Most Recent: Last Vital Signs Temp 98.2 F 05/16/20 07:57 Pulse 88 05/16/20 07:57 Resp 18 05/16/20 07:57 BP 123/57 L 05/16/20 08:07 Pulse Ox 94 L 05/16/20 07:57 Weight - Most Recent: 131.179 kg I&O - Last 24 Hours: Intake & Output 05/15/20 05/16/20 05/16/20 22:59 06:59 14:59 Intake Total 1040 800 Balance 1040 800 Lab Results Last 24 Hours: Laboratory Results - last 24 hr 05/15/20 05/15/20 05/15/20 Range/Units 14:55 15:32 18:13 WBC (4.0-11.0) K/uL RBC (4.50-5.90) M/uL Hgb (13.0-17.0) g/dL Hct (38.0-50.0) % MCV (80.0-98.0) fL MCH (27.0-32.0) pg MCHC (31.0-37.0) g/dL RDW Std Deviation (28.0-62.0) fl RDW Coeff of Brian (11.0-15.0) % Plt Count (150-400) K/uL MPV (7.40-12.00) fL Add Manual Diff Neutrophils % (Manual) (48.0-80.0) % Band Neutrophils % % Lymphocytes % (Manual) (16.0-40.0) % Monocytes % (Manual) (0.0-15.0) % Nucleated RBC % /100WBC Absolute Seg Neuts (1.4-5.7) Band Neutrophils # Lymphocytes # (Manual) (0.6-2.4) Monocytes # (Manual) (0.0-0.8) Nucleated RBCs # K/uL Sodium (136-148) mmol/L Potassium (3.5-5.1) mmol/L Chloride (98-107) mmol/L Carbon Dioxide (21.0-32.0) mmol/L BUN (7.0-18.0) mg/dL Creatinine (0.8-1.3) mg/dL Est Cr Clr Drug Dosing mL/min Estimated GFR (MDRD) ml/min Glucose (74-106) mg/dL POC Glucose 225 H 286 H (60-110) mg/dL Calcium (8.5-10.1) mg/dL Phosphorus (2.6-4.7) mg/dL Magnesium (1.8-2.4) mg/dL Total Bilirubin 0.3 (0.2-1.0) mg/dL Direct Bilirubin 0.10 (0.0-0.5) mg/dL Indirect Bilirubin 0.20 AST 30 (15-37) IU/L ALT 26 (14-63) IU/L Alkaline Phosphatase 65 (46-116) U/L Total Protein 7.0 (6.4-8.2) g/dL Albumin 2.7 L (3.4-5.0) g/dL Globulin 4.3 H (2.6-4.0) g/dL Albumin/Globulin Ratio 0.6 L (0.9-1.6) 05/16/20 05/16/20 05/16/20 Range/Units 06:07 06:07 06:08 WBC 9.53 (4.0-11.0) K/uL RBC 4.45 L (4.50-5.90) M/uL Hgb 13.0 (13.0-17.0) g/dL Hct 39.1 (38.0-50.0) % MCV 87.9 (80.0-98.0) fL MCH 29.2 (27.0-32.0) pg MCHC 33.2 (31.0-37.0) g/dL RDW Std Deviation 46.1 (28.0-62.0) fl RDW Coeff of Brian 14 (11.0-15.0) % Plt Count 327 (150-400) K/uL MPV 9.60 (7.40-12.00) fL Add Manual Diff YES Neutrophils % (Manual) 61 (48.0-80.0) % Band Neutrophils % 2 % Lymphocytes % (Manual) 32 (16.0-40.0) % Monocytes % (Manual) 5 (0.0-15.0) % Nucleated RBC % 0.0 /100WBC Absolute Seg Neuts 5.8 H (1.4-5.7) Band Neutrophils # 0.2 Lymphocytes # (Manual) 3.0 H (0.6-2.4) Monocytes # (Manual) 0.5 (0.0-0.8) Nucleated RBCs # 0 K/uL Sodium 135 L (136-148) mmol/L Potassium 4.5 (3.5-5.1) mmol/L Chloride 100 (98-107) mmol/L Carbon Dioxide 28.7 (21.0-32.0) mmol/L BUN 27 H (7.0-18.0) mg/dL Creatinine 1.1 (0.8-1.3) mg/dL Est Cr Clr Drug Dosing 65.57 mL/min Estimated GFR (MDRD) > 60.0 ml/min Glucose 212 H (74-106) mg/dL POC Glucose 184 H (60-110) mg/dL Calcium 8.3 L (8.5-10.1) mg/dL Phosphorus 2.5 L (2.6-4.7) mg/dL Magnesium 1.7 L (1.8-2.4) mg/dL Total Bilirubin 0.4 (0.2-1.0) mg/dL Direct Bilirubin (0.0-0.5) mg/dL Indirect Bilirubin AST 29 (15-37) IU/L ALT 24 (14-63) IU/L Alkaline Phosphatase 61 (46-116) U/L Total Protein 6.5 (6.4-8.2) g/dL Albumin 2.5 L (3.4-5.0) g/dL Globulin 4.0 (2.6-4.0) g/dL Albumin/Globulin Ratio 0.6 L (0.9-1.6) 05/16/20 Range/Units 09:09 WBC (4.0-11.0) K/uL RBC (4.50-5.90) M/uL Hgb (13.0-17.0) g/dL Hct (38.0-50.0) % MCV (80.0-98.0) fL MCH (27.0-32.0) pg MCHC (31.0-37.0) g/dL RDW Std Deviation (28.0-62.0) fl RDW Coeff of Brian (11.0-15.0) % Plt Count (150-400) K/uL MPV (7.40-12.00) fL Add Manual Diff Neutrophils % (Manual) (48.0-80.0) % Band Neutrophils % % Lymphocytes % (Manual) (16.0-40.0) % Monocytes % (Manual) (0.0-15.0) % Nucleated RBC % /100WBC Absolute Seg Neuts (1.4-5.7) Band Neutrophils # Lymphocytes # (Manual) (0.6-2.4) Monocytes # (Manual) (0.0-0.8) Nucleated RBCs # K/uL Sodium (136-148) mmol/L Potassium (3.5-5.1) mmol/L Chloride (98-107) mmol/L Carbon Dioxide (21.0-32.0) mmol/L BUN (7.0-18.0) mg/dL Creatinine (0.8-1.3) mg/dL Est Cr Clr Drug Dosing mL/min Estimated GFR (MDRD) ml/min Glucose (74-106) mg/dL POC Glucose 199 H (60-110) mg/dL Calcium (8.5-10.1) mg/dL Phosphorus (2.6-4.7) mg/dL Magnesium (1.8-2.4) mg/dL Total Bilirubin (0.2-1.0) mg/dL Direct Bilirubin (0.0-0.5) mg/dL Indirect Bilirubin AST (15-37) IU/L ALT (14-63) IU/L Alkaline Phosphatase (46-116) U/L Total Protein (6.4-8.2) g/dL Albumin (3.4-5.0) g/dL Globulin (2.6-4.0) g/dL Albumin/Globulin Ratio (0.9-1.6) Med Orders - Current: Current Medications Aspirin (Ecotrin) 325 mg PO DAILY [facility] Last Admin: 05/16/20 08:07 Dose: 325 mg Documented by: Atenolol (Tenormin) 50 mg PO DAILY [facility] Last Admin: 05/16/20 08:07 Dose: Not Given Documented by: Clopidogrel Bisulfate (Plavix) 75 mg PO BEDTIME [facility] Last Admin: 05/15/20 20:22 Dose: 75 mg Documented by: Dextrose/Water (Dextrose 50% In Water) 50 ml IV ASDIRECTED PRN PRN Reason: Hypoglycemia Docusate Sodium (Colace) 100 mg PO DAILY PRN PRN Reason: Constipation Last Admin: 05/16/20 09:10 Dose: 100 mg Documented by: Glucagon (Glucagen) 1 mg IM ASDIRECTED PRN PRN Reason: Hypoglycemia Hydrochlorothiazide (Hydrochlorothiazide) 25 mg PO DAILY [facility] Last Admin: 05/16/20 08:07 Dose: 25 mg Documented by: Remdesivir 100 mg/ Sodium (Chloride) 100 mls @ 100 mls/hr IV Q24H [facility] Stop: 05/17/20 15:44 Last Admin: 05/15/20 16:03 Dose: 100 mls/hr Documented by: Insulin Aspart (Novolog) 0 unit SUBCUT TIDAC [facility]; Protocol Last Admin: 05/16/20 08:09 Dose: 3 units Documented by: Insulin Glargine (Lantus Solostar) 50 units SUBCUT BID [facility] Last Admin: 05/16/20 09:09 Dose: 50 unit Documented by: Isosorbide Mononitrate (Imdur) 30 mg PO DAILY [facility] Last Admin: 05/16/20 08:07 Dose: 30 mg Documented by: Lisinopril (Prinivil) 20 mg PO DAILY [facility] Last Admin: 05/16/20 08:07 Dose: 20 mg Documented by: Omeprazole (Omeprazole) 20 mg PO DAILY [facility] Last Admin: 05/16/20 08:07 Dose: 20 mg Documented by: Latanoprost 0.005% Ophth Soln 2.5 Ml Bottle 0 each EYEBOTH BEDTIME [facility] Last Admin: 05/15/20 20:19 Dose: 1 each Documented by: Ranolazine (Ranexa) 500 mg PO BID [facility] Last Admin: 05/16/20 08:07 Dose: 500 mg Documented by: Rosuvastatin Calcium (Crestor) 20 mg PO BEDTIME [facility] Last Admin: 05/15/20 20:22 Dose: 20 mg Documented by: Silver Sulfadiazine (Silvadene 1% Cream 50 Gm) 50 gm TOP ASDIRECTED DAVID Sodium Phosphate (Neutra-Phos) 250 mg PO QID [facility] Discontinued Medications Atenolol (Tenormin) 50 mg PO BID [facility] Last Admin: 05/14/20 10:29 Dose: Not Given Documented by: Dexamethasone (Decadron) 6 mg IVPUSH ONETIME ONE Stop: 05/13/20 11:02 Last Admin: 05/13/20 11:53 Dose: 6 mg Documented by: Dextrose/Water (Dextrose 50% In Water) 50 ml IV ASDIRECTED PRN PRN Reason: Hypoglycemia Dextrose/Water (Dextrose 50% In Water) 50 ml IVPUSH ASDIRECTED PRN PRN Reason: Hypoglycemia Glucagon (Glucagen) 1 mg IM ASDIRECTED PRN PRN Reason: Hypoglycemia Glucagon (Glucagen) 1 mg IM ASDIRECTED PRN PRN Reason: Hypoglycemia Sodium Chloride (Normal Saline) 1,000 mls @ 999 mls/hr IV STAT ONE Stop: 05/13/20 11:49 Last Admin: 05/13/20 10:54 Dose: 999 mls/hr Documented by: Remdesivir 200 mg/ Sodium (Chloride) 250 mls @ 250 mls/hr IV ONETIME ONE Stop: 05/13/20 14:44 Last Admin: 05/13/20 19:00 Dose: Not Given Documented by: Remdesivir 200 mg/ Sodium (Chloride) 250 mls @ 250 mls/hr IV ONETIME ONE Stop: 05/13/20 18:59 Last Admin: 05/13/20 19:20 Dose: 250 mls/hr Documented by: Insulin Aspart (Novolog) 10 unit SUBCUT DAILY ONE Stop: 05/13/20 19:08 Last Admin: 05/13/20 19:28 Dose: 10 units Documented by: Insulin Aspart (Novolog) 6 unit SUBCUT DAILY ONE Stop: 05/14/20 07:48 Last Admin: 05/14/20 08:15 Dose: 6 units Documented by: Iopamidol (Isovue Multipack-370 (76%)) 100 ml IVPUSH ONETIME ONE Stop: 05/13/20 12:38 Last Admin: 05/13/20 12:38 Dose: 100 ml Documented by: Latanoprost (Xalatan 0.005% Ophth Soln) 0 ml EYEBOTH BEDTIME [facility] Last Admin: 05/14/20 20:26 Dose: 1 drop Documented by: Lisinopril (Prinivil) 20 mg PO DAILY [facility] Non-Formulary Medication (Insulin Glarg,Human.Rec.Analog) 100 unit SQ ASDIRECTED [facility] Non-Formulary Medication (Lisinopril) 20 mg PO DAILY [facility] Last Admin: 05/14/20 11:02 Dose: Not Given Documented by: Ondansetron HCl (Zofran) 4 mg IVPUSH ONETIME ONE Stop: 05/13/20 10:50 Last Admin: 05/13/20 10:55 Dose: 4 mg Documented by: Polyethylene Glycol (Miralax) 17 gm PO ONETIME ONE Stop: 05/16/20 10:04 Last Admin: 05/16/20 11:03 Dose: 17 gm Documented by: Sodium Chloride (Saline Flush) 10 ml FLUSH ASDIRECTED PRN PRN Reason: Keep Vein Open Last Admin: 05/13/20 10:55 Dose: 10 ml Documented by: Sodium Chloride (Saline Flush) 2.5 ml FLUSH ASDIRECTED PRN PRN Reason: Keep Vein Open Last Admin: 05/13/20 10:55 Dose: 2.5 ml Documented by: - Exam General: Alert, Oriented, Cooperative, No Acute Distress Lungs: Normal Respiratory Effort, Crackles (Fine crackles bibasilar) Cardiovascular: Regular Rate, Regular Rhythm GI/Abdominal Exam: Normal Bowel Sounds, Soft, Non-Tender Extremities: Normal Inspection, Normal Range of Motion, Non-Tender, No Pedal Edema Wound/Incisions: Dressing Dry and Intact (Left great toe wound dressing intact no drainage no erythema.) Neurological: No New Focal Deficit Psy/Mental Status: Alert, Normal Affect, Normal Mood Sepsis Event Note - Evaluation Sepsis Screening Result: No Definite Risk - Focused Exam Vital Signs: Vital Signs Temp Pulse Resp BP BP Pulse Ox 05/16/20 08:07 123/57 L 05/16/20 07:57 98.2 F 88 18 123/57 L 94 L 05/16/20 06:26 97.6 F 67 18 133/59 L 93 L 05/15/20 23:53 97.8 F 79 18 93 L - Problem List & Annotations (1) COVID-19 virus infection SNOMED Code(s): 545022678 Code(s): U07.1 - COVID-19 Status: Acute Current Visit: Yes (2) Hypomagnesemia SNOMED Code(s): 469032983 Code(s): E83.42 - HYPOMAGNESEMIA Status: Acute Current Visit: Yes (3) Hypophosphatemia SNOMED Code(s): 5045039 Code(s): E83.39 - OTHER DISORDERS OF PHOSPHORUS METABOLISM Status: Acute Current Visit: Yes (4) Weakness SNOMED Code(s): 31936244 Code(s): R53.1 - WEAKNESS Status: Acute Current Visit: Yes (5) Ulcer of toe of left foot SNOMED Code(s): 577737455 Code(s): L97.529 - NON-PRESSURE CHRONIC ULCER OTH PRT LEFT FOOT W UNSP SEVERITY Status: Chronic Current Visit: Yes Qualifiers: Non-pressure ulcer stage: limited to breakdown of skin Qualified Code(s): L97.521 - Non-pressure chronic ulcer of other part of left foot limited to breakdown of skin (6) CAD (coronary artery disease) SNOMED Code(s): 89811839 Code(s): I25.10 - ATHSCL HEART DISEASE OF [place] CORONARY ARTERY W/O ANG PCTRS Status: Chronic Current Visit: No (7) Diabetes mellitus type 2 SNOMED Code(s): 90364475 Code(s): E11.9 - TYPE 2 DIABETES MELLITUS WITHOUT COMPLICATIONS Status: Chronic Current Visit: No (8) Hypertension SNOMED Code(s): 26511736 Code(s): I10 - ESSENTIAL (PRIMARY) HYPERTENSION Status: Chronic Current Visit: Yes - Problem List Review Problem List Initiated/Reviewed/Updated: Yes - My Orders Last 24 Hours: My Active Orders 05/16/20 12:00 Phosphorus #1 [Neutra-Phos] 250 mg PO QID - Plan Plan:: 75 yo male admitted for general debility due to COVID illness. 1. COVID-19 infection - No hypoxia noted - Continues to have generalized debility will replace electrolytes and continue PT - cont remdesivir day 3/4 today - Patient is refusing dexamethasone due to concerns of causing hyperglycemia 2. DM type II -Continue NovoLog sliding scale -Blood sugars controlled 3. CAD/HTN -Continue cardioprotective home medicines. -Patient refused atenolol this morning heart rate is well controlled. 3. Left great toe diabetic ulcer -Continue wound care VTE prophylaxis: Plavix and lovenox CODE STATUS : full code Dispo: Likely discharge in a.m.
[2020-05-16] MEDS: Enoxaparin 40 MG/0.4 ML Syringe SUBCUT SCH (12:30)
[2020-05-16] MEDS: Phosphorus #1 250 MG Tab PO SCH ×2 (13:13→18:14)
[2020-05-16] MEDS: REMDESIVIR 100 MG in Sodium Chloride 0.9% 100 ML IV SCH (15:47)
[2020-05-16] MEDS: Rosuvastatin 10 MG Tab PO SCH (20:50)
[2020-05-16] MEDS: Clopidogrel 75 MG Tab PO SCH (20:50)
[2020-05-16] MEDS: Latanoprost 0.005% Ophth Soln 2.5 ML Bottle EYEBOTH SCH (20:58)
[2020-05-17] MEDS: Phosphorus #1 250 MG Tab PO SCH ×3 (00:52→12:00)
[2020-05-17 08:33] LABS: BLOOD UREA NITROGEN,BUN 16 mg/dL (7.0-18.0); CARBON DIOXIDE,CO2 27.6 mmol/L (21.0-32.0); CHLORIDE,CL 101 mmol/L (98-107); GLUCOSE RANDOM 172 mg/dL (74-106); POTASSIUM,K 4.5 mmol/L (3.5-5.1); SODIUM,NA 136 mmol/L (136-148)
[2020-05-17] MEDS: Insulin Glargine,Human Rec. Analog 100 Units/ML 3 ML Pen SUBCUT SCH (09:18)
[2020-05-17] MEDS: Insulin Aspart 100 Units/ML 3 ML Pen SUBCUT SCH ×2 (09:18→12:00)
[2020-05-17 09:58] VITALS: BP 118/63
[2020-05-17] MEDS: Lisinopril 10 MG Tab PO SCH (10:02)
[2020-05-17] MEDS: Isosorbide Mononitrate 30 MG Tab.ER PO SCH (10:03)
[2020-05-17] MEDS: Hydrochlorothiazide 25 MG Tab PO SCH (10:03)
[2020-05-17] MEDS: Omeprazole 20 MG Cap.CR PO SCH (10:03)
[2020-05-17] MEDS: Aspirin 325 MG Tab.EC PO SCH (10:14)
[2020-05-17] MEDS: Atenolol 50 MG Tab PO SCH (10:17)
[2020-05-17 10:18] VITALS: PULSE 65
--- NOTE | 2020-05-17 10:45 | PCM.DCSUM1 ---
Discharge Summary - Hospital Course Brief History: 75 yo male with pmh of DM, CAD who was diagnosed with COVID May 01 who presents to the ED today with generalized weakness, poor apatite and shortness of breath. PAtient reports not being able to get up out of bed and unable to do his ADLS. He denies any fevers or chest pain. IN the ED he was noted to be satting 92% on Room air but desatted to the low 80s with any exertion. CT chest angio was negative for PE. ED physcian referred for admission due to general debility and hypoxia. Diagnosis: Stroke: No - Discharge Data Discharge Date: 05/17/20 Discharge Disposition: Home, Self-Care 01 Condition: Good - Referral to Home Health Primary Care Physician: PCP None - Discharge Diagnosis/Problem(s) (1) COVID-19 virus infection SNOMED Code(s): 915578614 ICD Code: U07.1 - COVID-19 Status: Acute Current Visit: Yes (2) Hypomagnesemia SNOMED Code(s): 361541173 ICD Code: E83.42 - HYPOMAGNESEMIA Status: Acute Current Visit: Yes (3) Hypophosphatemia SNOMED Code(s): 8345265 ICD Code: E83.39 - OTHER DISORDERS OF PHOSPHORUS METABOLISM Status: Acute Current Visit: Yes (4) Weakness SNOMED Code(s): 22467331 ICD Code: R53.1 - WEAKNESS Status: Acute Current Visit: Yes (5) Ulcer of toe of left foot SNOMED Code(s): 766995773 ICD Code: L97.529 - NON-PRESSURE CHRONIC ULCER OTH PRT LEFT FOOT W UNSP SEVERITY Status: Chronic Current Visit: Yes Qualifiers: Non-pressure ulcer stage: limited to breakdown of skin Qualified Code(s): L97.521 - Non-pressure chronic ulcer of other part of left foot limited to breakdown of skin (6) CAD (coronary artery disease) SNOMED Code(s): 92775149 ICD Code: I25.10 - ATHSCL HEART DISEASE OF [place] CORONARY ARTERY W/O ANG PCTRS Status: Chronic Current Visit: No (7) Diabetes mellitus type 2 SNOMED Code(s): 72928479 ICD Code: E11.9 - TYPE 2 DIABETES MELLITUS WITHOUT COMPLICATIONS Status: Chronic Current Visit: No (8) Hypertension SNOMED Code(s): 72864512 ICD Code: I10 - ESSENTIAL (PRIMARY) HYPERTENSION Status: Chronic Current Visit: Yes - Patient Summary/Data Consults: Consultations 05/13/20 14:44 PT Evaluation and Treatment [CONS] Routine Hospital Course: admitting Diagnoses: COVID-19 Debility Discharge diagnoses: COVID Debility and weakness Maynor was admitted secondary to debility and weakness secondary to COVID-19. He was treated with remdesivir and received 4 doses of this. On admission he declined use of dexamethasone secondary to previous history of hyperglycemia. During his stay lab work continued to be monitored and remained stable. Blood sugars remained stable. Initially on admission mild bradycardia was noted atenolol was decreased to 50 mg daily. Blood pressures remained stable on home medications. Today he is feeling much better. Physical therapy saw him yesterday and felt he was doing well he was able to transfer himself in and out of bed as well as ambulate within the room with no significant assistance. He will be discharged home today continue home medications with a decrease of atenolol dose to 50 mg daily. Prescription was provided he is to follow-up with PCP in 7 to 10 days. Technically quarantine is over he was encouraged to wear a mask when leaving the house or when people were around him. He is to return to the ER or clinic sooner if concerns should arise. - Patient Instructions Diet: Heart Healthy Diet, Diabetic Diet Activity: No Strenuous Activities, Rest and Relax Today Showering/Bathing: May Shower Notify Provider of: Fever, Increased Pain, Swelling and Redness, Drainage, Nausea and/or Vomiting - Discharge Plan *PRESCRIPTION DRUG MONITORING PROGRAM REVIEWED*: Not Applicable *COPY OF PRESCRIPTION DRUG MONITORING REPORT IN PATIENT CHRISTINE: Not Applicable Prescriptions/Med Rec: atenoloL [Tenormin] 50 mg PO DAILY #30 tablet Home Medications: Home Meds Aspirin [Ecotrin EC] 325 mg PO DAILY 05/13/20 [History] Clopidogrel [Plavix] 75 mg PO DAILY 05/13/20 [History] Docusate Sodium 100 mg PO ASDIRECTED PRN 05/13/20 [History] Insulin Aspart [NovoLOG] 1 dose .ROUTE ASDIRECTED 05/13/20 [History] Insulin Glarg,Human.Rec.Analog [Lantus] 100 unit SQ ASDIRECTED 05/13/20 [History] Isosorbide Mononitrate [Isosorbide Mononitrate ER] 30 mg PO DAILY 05/13/20 [History] Multivit-Min/FA/Lycopen/Lutein [Centrum Silver Tablet] 1 each PO DAILY 05/13/20 [History] Nitroglycerin 1 tab SL ASDIRECTED 05/13/20 [History] Non-Formulary Medication [NF Drug] 1 tab PO DAILY 05/13/20 [History] Non-Formulary Medication [NF Drug] 1 tab PO DAILY 05/13/20 [History] Omeprazole 20 mg PO DAILY 05/13/20 [History] Ranolazine [Ranexa] 500 mg PO BID 05/13/20 [History] Rosuvastatin [Crestor] 20 mg PO DAILY 05/13/20 [History] Silver Sulfadiazine [Silvadene 1% Cream 50 GM] 50 gm TOP ASDIRECTED 05/13/20 [History] hydroCHLOROthiazide [Hydrochlorothiazide] 25 mg PO DAILY 05/13/20 [History] lisinopriL [Lisinopril] 20 mg PO DAILY 05/13/20 [History] metFORMIN [Glucophage] 500 mg PO BIDMEALS 05/13/20 [History] Latanoprost/Pf [Latanoprost 0.005% Eye Drop] 1 drop BEDTIME 05/14/20 [History] atenoloL [Tenormin] 50 mg PO DAILY #30 tablet 05/15/20 [Rx] Budesonide/Formoterol Fumarate [Symbicort 80-4.5 MCG] 05/16/20 [History] Oxygen Therapy Mode: Room Air Patient Handouts: COVID-19 Frequently Asked Questions, COVID-19, COVID-19: How to Protect Yourself and Others - [facility], Atenolol tablets Referrals: Karie Kiser NP [Nurse Practitioner] - 05/26/20 9:45 am (Please arrive 15mins early, bring ID, insurance info and own mask.) - Discharge Summary/Plan Comment DC Time >30 min.: No - Patient Data Vitals - Most Recent: Last Vital Signs Temp 97.2 F 05/17/20 09:57 Pulse 65 05/17/20 10:17 Resp 18 05/17/20 09:57 BP 118/63 05/17/20 10:17 Pulse Ox 94 L 05/17/20 09:57 Weight - Most Recent: 131.179 kg I&O - Last 24 hours: Intake & Output 05/16/20 05/17/20 05/17/20 22:59 06:59 14:59 Intake Total 625 Balance 625 Lab Results - Last 24 hrs: Laboratory Results - last 24 hr 05/16/20 05/16/20 05/16/20 Range/Units 12:25 18:11 20:54 WBC (4.0-11.0) K/uL RBC (4.50-5.90) M/uL Hgb (13.0-17.0) g/dL Hct (38.0-50.0) % MCV (80.0-98.0) fL MCH (27.0-32.0) pg MCHC (31.0-37.0) g/dL RDW Std Deviation (28.0-62.0) fl RDW Coeff of Brian (11.0-15.0) % Plt Count (150-400) K/uL MPV (7.40-12.00) fL Neut % (Auto) (48.0-80.0) % Lymph % (Auto) (16.0-40.0) % [place] % (Auto) (0.0-15.0) % Eos % (Auto) (0.0-7.0) % Baso % (Auto) (0.0-1.5) % Neut # (Auto) (1.4-5.7) K/uL Lymph # (Auto) (0.6-2.4) K/uL [place] # (Auto) (0.0-0.8) K/uL Eos # (Auto) (0.0-0.7) K/uL Baso # (Auto) (0.0-0.1) K/uL Nucleated RBC % /100WBC Nucleated RBCs # K/uL Sodium (136-148) mmol/L Potassium (3.5-5.1) mmol/L Chloride (98-107) mmol/L Carbon Dioxide (21.0-32.0) mmol/L BUN (7.0-18.0) mg/dL Creatinine (0.8-1.3) mg/dL Est Cr Clr Drug Dosing mL/min Estimated GFR (MDRD) ml/min Glucose (74-106) mg/dL POC Glucose 219 H 212 H 254 H (60-110) mg/dL Calcium (8.5-10.1) mg/dL 05/17/20 05/17/20 05/17/20 Range/Units 07:49 07:49 08:37 WBC 9.16 (4.0-11.0) K/uL RBC 4.59 (4.50-5.90) M/uL Hgb 13.4 (13.0-17.0) g/dL Hct 40.2 (38.0-50.0) % MCV 87.6 (80.0-98.0) fL MCH 29.2 (27.0-32.0) pg MCHC 33.3 (31.0-37.0) g/dL RDW Std Deviation 45.3 (28.0-62.0) fl RDW Coeff of Brian 14 (11.0-15.0) % Plt Count 330 (150-400) K/uL MPV 9.70 (7.40-12.00) fL Neut % (Auto) 61.7 (48.0-80.0) % Lymph % (Auto) 25.0 (16.0-40.0) % [place] % (Auto) 12.2 (0.0-15.0) % Eos % (Auto) 0.9 (0.0-7.0) % Baso % (Auto) 0.2 (0.0-1.5) % Neut # (Auto) 5.7 (1.4-5.7) K/uL Lymph # (Auto) 2.3 (0.6-2.4) K/uL [place] # (Auto) 1.1 H (0.0-0.8) K/uL Eos # (Auto) 0.1 (0.0-0.7) K/uL Baso # (Auto) 0.0 (0.0-0.1) K/uL Nucleated RBC % 0.0 /100WBC Nucleated RBCs # 0 K/uL Sodium 136 (136-148) mmol/L Potassium 4.5 (3.5-5.1) mmol/L Chloride 101 (98-107) mmol/L Carbon Dioxide 27.6 (21.0-32.0) mmol/L BUN 16 (7.0-18.0) mg/dL Creatinine 1.0 (0.8-1.3) mg/dL Est Cr Clr Drug Dosing 72.13 mL/min Estimated GFR (MDRD) > 60.0 ml/min Glucose 172 H (74-106) mg/dL POC Glucose 180 H (60-110) mg/dL Calcium 8.8 (8.5-10.1) mg/dL Med Orders - Current: Current Medications Aspirin (Ecotrin) 325 mg PO DAILY [facility] Last Admin: 05/17/20 10:14 Dose: 325 mg Documented by: Atenolol (Tenormin) 50 mg PO DAILY [facility] Last Admin: 05/17/20 10:17 Dose: Not Given Documented by: Clopidogrel Bisulfate (Plavix) 75 mg PO BEDTIME [facility] Last Admin: 05/16/20 20:50 Dose: 75 mg Documented by: Dextrose/Water (Dextrose 50% In Water) 50 ml IV ASDIRECTED PRN PRN Reason: Hypoglycemia Docusate Sodium (Colace) 100 mg PO DAILY PRN PRN Reason: Constipation Last Admin: 05/16/20 09:10 Dose: 100 mg Documented by: Enoxaparin Sodium (Lovenox) 40 mg SUBCUT Q24H [facility] Last Admin: 05/16/20 12:30 Dose: Not Given Documented by: Glucagon (Glucagen) 1 mg IM ASDIRECTED PRN PRN Reason: Hypoglycemia Hydrochlorothiazide (Hydrochlorothiazide) 25 mg PO DAILY [facility] Last Admin: 05/17/20 10:03 Dose: Not Given Documented by: Remdesivir 100 mg/ Sodium (Chloride) 100 mls @ 100 mls/hr IV Q24H [facility] Stop: 05/17/20 15:44 Last Admin: 05/16/20 15:47 Dose: 100 mls/hr Documented by: Insulin Aspart (Novolog) 0 unit SUBCUT TIDAC [facility]; Protocol Last Admin: 05/17/20 09:18 Dose: Not Given Documented by: Insulin Glargine (Lantus Solostar) 50 units SUBCUT BID [facility] Last Admin: 05/17/20 09:18 Dose: Not Given Documented by: Isosorbide Mononitrate (Imdur) 30 mg PO DAILY [facility] Last Admin: 05/17/20 10:03 Dose: 30 mg Documented by: Lisinopril (Prinivil) 20 mg PO DAILY [facility] Last Admin: 05/17/20 10:02 Dose: 20 mg Documented by: Omeprazole (Omeprazole) 20 mg PO DAILY [facility] Last Admin: 05/17/20 10:03 Dose: 20 mg Documented by: Latanoprost 0.005% Ophth Soln 2.5 Ml Bottle 0 each EYEBOTH BEDTIME [facility] Last Admin: 05/16/20 20:58 Dose: 1 each Documented by: Ranolazine (Ranexa) 500 mg PO BID [facility] Last Admin: 05/17/20 10:03 Dose: 500 mg Documented by: Rosuvastatin Calcium (Crestor) 20 mg PO BEDTIME [facility] Last Admin: 05/16/20 20:50 Dose: 20 mg Documented by: Silver Sulfadiazine (Silvadene 1% Cream 50 Gm) 50 gm TOP ASDIRECTED [facility] Sodium Phosphate (Neutra-Phos) 250 mg PO QID [facility] Last Admin: 05/17/20 06:42 Dose: Not Given Documented by: Discontinued Medications Atenolol (Tenormin) 50 mg PO BID [facility] Last Admin: 05/14/20 10:29 Dose: Not Given Documented by: Dexamethasone (Decadron) 6 mg IVPUSH ONETIME ONE Stop: 05/13/20 11:02 Last Admin: 05/13/20 11:53 Dose: 6 mg Documented by: Dextrose/Water (Dextrose 50% In Water) 50 ml IV ASDIRECTED PRN PRN Reason: Hypoglycemia Dextrose/Water (Dextrose 50% In Water) 50 ml IVPUSH ASDIRECTED PRN PRN Reason: Hypoglycemia Glucagon (Glucagen) 1 mg IM ASDIRECTED PRN PRN Reason: Hypoglycemia Glucagon (Glucagen) 1 mg IM ASDIRECTED PRN PRN Reason: Hypoglycemia Sodium Chloride (Normal Saline) 1,000 mls @ 999 mls/hr IV STAT ONE Stop: 05/13/20 11:49 Last Admin: 05/13/20 10:54 Dose: 999 mls/hr Documented by: Remdesivir 200 mg/ Sodium (Chloride) 250 mls @ 250 mls/hr IV ONETIME ONE Stop: 05/13/20 14:44 Last Admin: 05/13/20 19:00 Dose: Not Given Documented by: Remdesivir 200 mg/ Sodium (Chloride) 250 mls @ 250 mls/hr IV ONETIME ONE Stop: 05/13/20 18:59 Last Admin: 05/13/20 19:20 Dose: 250 mls/hr Documented by: Insulin Aspart (Novolog) 10 unit SUBCUT DAILY ONE Stop: 05/13/20 19:08 Last Admin: 05/13/20 19:28 Dose: 10 units Documented by: Insulin Aspart (Novolog) 6 unit SUBCUT DAILY ONE Stop: 05/14/20 07:48 Last Admin: 05/14/20 08:15 Dose: 6 units Documented by: Iopamidol (Isovue Multipack-370 (76%)) 100 ml IVPUSH ONETIME ONE Stop: 05/13/20 12:38 Last Admin: 05/13/20 12:38 Dose: 100 ml Documented by: Latanoprost (Xalatan 0.005% Ophth Soln) 0 ml EYEBOTH BEDTIME DAVID Last Admin: 05/14/20 20:26 Dose: 1 drop Documented by: Lisinopril (Prinivil) 20 mg PO DAILY [facility] Non-Formulary Medication (Insulin Glarg,Human.Rec.Analog) 100 unit SQ ASDIRECT ED [facility] Non-Formulary Medication (Lisinopril) 20 mg PO DAILY [facility] Last Admin: 05/14/20 11:02 Dose: Not Given Documented by: Ondansetron HCl (Zofran) 4 mg IVPUSH ONETIME ONE Stop: 05/13/20 10:50 Last Admin: 05/13/20 10:55 Dose: 4 mg Documented by: Polyethylene Glycol (Miralax) 17 gm PO ONETIME ONE Stop: 05/16/20 10:04 Last Admin: 05/16/20 11:03 Dose: 17 gm Documented by: Sodium Chloride (Saline Flush) 10 ml FLUSH ASDIRECTED PRN PRN Reason: Keep Vein Open Last Admin: 05/13/20 10:55 Dose: 10 ml Documented by: Sodium Chloride (Saline Flush) 2.5 ml FLUSH ASDIRECTED PRN PRN Reason: Keep Vein Open Last Admin: 05/13/20 10:55 Dose: 2.5 ml Documented by: - Exam General: Reports: Alert, Oriented, Cooperative, No Acute Distress Lungs: Reports: Clear to Auscultation, Normal Respiratory Effort Cardiovascular: Reports: Regular Rate, Regular Rhythm GI/Abdominal Exam: Normal Bowel Sounds, Soft, Non-Tender Extremities: Normal Inspection, Normal Range of Motion, Non-Tender, No Pedal Edema Psy/Mental Status: Reports: Alert, Normal Affect, Normal Mood
[2020-05-17] MEDS: Enoxaparin 40 MG/0.4 ML Syringe SUBCUT SCH (12:00)
== END 2020-05-17 13:15 | disposition home or self-care (01) ==
LOC: MW.ED 10:19 → MW.MS 13:24
PROVIDERS: ADMIT Internal Medicine; ATTEND Internal Medicine
DX: U07.1 COVID-19 (principal); E11.9 Type 2 diabetes mellitus without complications; I25.10 Atherosclerotic heart disease of native coronary artery without angina pectoris; E78.00 Pure hypercholesterolemia, unspecified; I25.2 Old myocardial infarction; I48.91 Unspecified atrial fibrillation; E66.9 Obesity, unspecified; K21.9 Gastro-esophageal reflux disease without esophagitis; G47.30 Sleep apnea, unspecified; E83.42 Hypomagnesemia; E83.39 Other disorders of phosphorus metabolism; L97.529 Non-pressure chronic ulcer of other part of left foot with unspecified severity; Z88.8 Allergy status to other drugs, medicaments and biological substances; Z79.82 Long term (current) use of aspirin; Z79.899 Other long term (current) drug therapy; Z79.4 Long term (current) use of insulin; Z98.890 Other specified postprocedural states; Z68.32 Body mass index [BMI] 32.0-32.9, adult
CPT/HCPCS: 36415; 71045; 71275; 80048; 80053; 80076; 81003; 82803; 82962; 83735; 83880; 84100; 84484; 85025; 85027; 85379; 93005; 96365; 96366; 96375; 96376; 97161; 99285; A9270; G0378; J1100; J1815; J2405; J7030; J7050; Q9967; 93010; 96374; 99283

== ENCOUNTER 2021-04-24 13:28 | Emergency (ER) | payer MEDICARE, OTHER ==
--- NOTE | 2021-04-24 13:36 | EDM.PDOC ---
ED HPI GENERAL MEDICAL PROBLEM - General Chief Complaint: Trauma Stated Complaint: fell Time Seen by Provider: 04/24/21 13:31 Source of Information: Reports: Patient History Limitations: Reports: No Limitations - History of Present Illness INITIAL COMMENTS - FREE TEXT/NARRATIVE: Patient is a 76-year-old male on Plavix presents today after a trip and fall. Per patient he stepped over a garden hose caused him to fall on his back. He is unsure if he hit his head but thinks he may have passed out for few seconds. When patient arrived he was alert and oriented airway was intact tach bilateral breath sounds good pulses and moving all extremities. He complains of pain mostly to the lower back. He denies any chest pain no other complaints he is scheduled to have a procedure done in [place] tomorrow which is also a possible cardiac cath. Again patient denies any syncope episode. Lower Back Pain Score (Numeric/FACES): 5 - Related Data Allergies Allergy/AdvReac Type Severity Reaction Status Date / Time cefaclor [From [facility]] Allergy Rash Verified 05/13/20 11:08 Home Meds: Home Meds Aspirin [Ecotrin EC] 325 mg PO DAILY 05/13/20 [History] Clopidogrel [Plavix] 75 mg PO DAILY 05/13/20 [History] Insulin Aspart [NovoLOG] 1 dose .ROUTE ASDIRECTED 05/13/20 [History] Insulin Glarg,Human.Rec.Analog [Lantus] 100 unit SQ ASDIRECTED 05/13/20 [History] Isosorbide Mononitrate [Isosorbide Mononitrate ER] 30 mg PO DAILY 05/13/20 [History] Rosuvastatin [Crestor] 20 mg PO DAILY 05/13/20 [History] lisinopriL [Lisinopril] 20 mg PO DAILY 05/13/20 [History] metFORMIN [Glucophage] 500 mg PO BIDMEALS 05/13/20 [History] atenoloL [Tenormin] 50 mg PO DAILY #30 tablet 05/15/20 [Rx] Rosuvastatin Calcium 04/24/21 [History] Rosuvastatin Calcium 20 mg PO DAILY 04/24/21 [History] Past Medical History HEENT History: Reports: Glaucoma, Hard of Hearing, Impaired Vision, Other (See Below) Other HEENT History: wears glasses Cardiovascular History: Reports: Afib, CAD, High Cholesterol, Hypertension, CT, Other (See Below), PVD, Stents Other Cardiovascular History: ablation, tachycardia Respiratory History: Reports: Other (See Below), Sleep Apnea Other Respiratory History: chronic cough Gastrointestinal History: Reports: Colon Polyp, GERD, Helicobacter Pylori, None Genitourinary History: Reports: None HARNESS PULLER History: Reports: None Musculoskeletal History: Reports: Amputation, Back Pain, Chronic, Other (See B darling), Osteoarthritis Other Musculoskeletal History: knee pain, shoulder pain, muscle spasms, shoulder impingement, limb pain Neurological History: Reports: Neuropathy, Diabetic, Other (See Below) Other Neuro History: lumbar spinal stenosis Psychiatric History: Reports: None Endocrine/Metabolic History: Reports: Diabetes, Type II, Obesity/BMI 30+ Hematologic History: Reports: None Immunologic History: Reports: None Oncologic (Cancer) History: Reports: None Dermatologic History: Reports: Other (See Below) Other Dermatologic History: cellulitis and abcess of toe - Infectious Disease History Infectious Disease History: Reports: Chicken Pox, Measles, Mumps, Novel Coronavirus - Past Surgical History Cardiovascular Surgical History: Reports: Cardiac Ablation, Coronary Artery Bypass, Coronary Artery Stent, Carotid Endarterectomy Musculoskeletal Surgical History: Reports: Arthroscopic Knee, Amputation, Carpal Tunnel, Other (See Below) Social & Family History - Family History Family Medical History: No Pertinent Family History - Caffeine Use Caffeine Use: Reports: Coffee Review of Systems - Review of Systems Review Of Systems: See Below Constitutional: Reports: No Symptoms Eyes: Reports: No Symptoms Ears: Reports: No Symptoms Nose: Reports: No Symptoms Mouth/Throat: Reports: No Symptoms Respiratory: Reports: No Symptoms Cardiovascular: Reports: No Symptoms GI/Abdominal: Reports: No Symptoms Genitourinary: Reports: No Symptoms Musculoskeletal: Reports: Back Pain Skin: Reports: No Symptoms Neurological: Reports: No Symptoms Psychiatric: Reports: No Symptoms ED EXAM, GENERAL - Physical Exam Exam: See Below Exam Limited By: No Limitations General Appearance: Alert, WD/WN, No Apparent Distress Eye Exam: Bilateral Eye: EOMI, PERRL Nose: Normal Inspection Head: Atraumatic, Normocephalic Neck: Normal Inspection, Supple, Non-Tender Respiratory/Chest: No Respiratory Distress, Lungs Clear, Normal Breath Sounds Cardiovascular: Normal Peripheral Pulses, Regular Rate, Rhythm GI/Abdominal: Normal Bowel Sounds, Soft, Non-Tender Back Exam: Normal Inspection, Full Range of Motion. No: Vertebral Tenderness Extremities: Normal Inspection, Normal Range of Motion Neurological: Alert, Oriented, Normal Cognition, No Motor/Sensory Deficits Course - Vital Signs Last Recorded V/S: Last Vital Signs Temp 98.1 F 04/24/21 14:18 Pulse 54 L 04/24/21 14:38 Resp 16 04/24/21 14:18 BP 118/53 L 04/24/21 14:38 Pulse Ox 98 04/24/21 14:38 - Orders/Labs/Meds Meds: Medications Discontinued Medications Generic Name Dose Route Start Last Admin Trade Name Yen PRN Reason Stop Dose Admin Bacitracin 1 dose 04/24/21 14:08 04/24/21 14:28 Bacitracin Oint 1 Gm U/D Packet TOP 04/24/21 14:09 1 dose ONETIME ONE Administration - Re-Assessments/Exams Free Text/Narrative Re-Assessment/Exam: 04/24/21 15:21 Patient made aware of his fractures on his x-rays. We also spoke to neurosurgery at [facility] and also [facility] J[facility] [place] and I recommend the patient disease pain control does not require any bracing. Patient will be sent home with pain control and he also has to be seen by his vascular surgeon tomorrow to have a stent placed in his leg. Departure - Departure Time of Disposition: 15:22 Disposition: Home, Self-Care 01 Condition: Good Clinical Impression: Fracture of L2 vertebra - Discharge Information *PRESCRIPTION DRUG MONITORING PROGRAM REVIEWED*: Not Applicable *COPY OF PRESCRIPTION DRUG MONITORING REPORT IN PATIENT CHRISTINE: Not Applicable Instructions: Lumbar Spine Fracture Referrals: Jaden Garcia NP [Primary Care Provider] - Forms: ED Department Discharge Additional Instructions: You were seen today for fall from standing. You suffered some fractures to the first vertebral lumbar spine area the location of your fractures do not require any intervention to his pain control. Recommend continue to follow-up to primary care physician also go to your schedule appointment tomorrow in [place]. If you have any other concerning signs or symptoms please go to the ED immediately. The following information is given to patients seen in the emergency department who are being discharged to home. This information is to outline your options for follow-up care. We provide all patients seen in our emergency department with a follow-up referral. The need for follow-up, as well as the timing and circumstances, are variable depending upon the specifics of your emergency department visit. If you don't have a primary care physician on staff, we will provide you with a referral. We always advise you to contact your personal physician following an emergency department visit to inform them of the circumstance of the visit and for follow-up with them and/or the need for any referrals to a consulting specialist. The emergency department will also refer you to a specialist when appropriate. This referral assures that you have the opportunity for follow-up care with a specialist. All of these measure are taken in an effort to provide you with optimal care, which includes your follow-up. Under all circumstances we always encourage you to contact your private physician who remains a resource for coordinating your care. When calling for follow-up care, please make the office aware that this follow-up is from your recent emergency room visit. If for any reason you are refused follow-up, please contact the [facility] Emergency Department at and asked to speak to the emergency department charge nurse. Please follow up with your primary care physician. If you do not have a primary care physician, see below: [facility] [address] [place] [id number] [facility] [address] [place] [id number] Sepsis Event Note (ED) - Focused Exam Vital Signs: Vital Signs Temp Pulse Resp BP Pulse Ox 04/24/21 14:38 54 L 118/53 L 98 04/24/21 14:18 98.1 F 58 L 16 142/88 H 90 L - Assessment/Plan Plan: Patient is a 76-year-old man male who presents today after fall from standing. We will obtain images of the head C-spine T and L-spine and reassess.
[2021-04-24] MEDS ORDERED: Bacitracin Oint 1 GM U/D Packet TOP ONE (14:08)
--- NOTE | 2021-04-24 14:31 | CT ---
INDICATION: Head injury. Fell. TECHNIQUE: Scanning of the head was performed without IV contrast material. Coronal and sagittal reconstructions were obtained. COMPARISON: Today`s cervical spine CT. FINDINGS: No acute hemorrhage or positive mass effect is demonstrated. No calvarial or obvious facial fracture is identified. The visualized paranasal and mastoid sinuses are clear. The ventricles and other subarachnoid spaces are within normal limits for the patient`s age. There is mild nonspecific decreased attenuation in the cerebral white matter which is most likely due to aging/chronic microvascular ischemic disease. IMPRESSION: 1. Negative for acute traumatic abnormality. 2. Mild nonspecific cerebral white matter disease which is most likely due to aging/chronic microvascular ischemia. Please note that all CT scans at this facility use dose modulation, iterative reconstruction, and/or weight-based dosing when appropriate to reduce radiation dose to as low as reasonably achievable. Dictated by Jerome Wright MD @ 04/24/2021 2:29:48 PM (Electronically Signed)
--- NOTE | 2021-04-24 14:35 | CT ---
INDICATION: Neck injury. Fell. TECHNIQUE: Volumetric helical scanning of the cervical spine was performed without contrast material. Sagittal and coronal reconstructions were also obtained. COMPARISON: Today`s head and thoracic spine CT scans. FINDINGS: No fracture, traumatic subluxation or prevertebral soft tissue swelling is demonstrated. Multilevel spondylosis is demonstrated. No curvature abnormality or other abnormality is evident. IMPRESSION: 1. Negative for acute traumatic abnormality. 2. Multilevel spondylosis. Please note that all CT scans at this facility use dose modulation, iterative reconstruction, and/or weight-based dosing when appropriate to reduce radiation dose to as low as reasonably achievable. Dictated by Jerome Wright MD @ 04/24/2021 2:33:31 PM (Electronically Signed)
--- NOTE | 2021-04-24 14:43 | CT ---
INDICATION: Back injury. Fell. TECHNIQUE: Volumetric helical scanning of the thoracic spine was performed without contrast material. Sagittal and coronal reconstructions were also obtained. COMPARISON: Today`s cervical spine and lumbar spine CT scans. FINDINGS: No fracture, subluxation or paraspinous hematoma is demonstrated. Degenerative changes ranging from mild to moderate along with endplate irregularities are demonstrated as well as large anterolateral spurs at multiple levels. A mildly exaggerated thoracic kyphosis is also noted. IMPRESSION: 1. Negative for acute thoracic spine injury. 2. Chronic findings, as above. Please note that all CT scans at this facility use dose modulation, iterative reconstruction, and/or weight-based dosing when appropriate to reduce radiation dose to as low as reasonably achievable. Dictated by Jerome Wright MD @ 04/24/2021 2:41:24 PM (Electronically Signed)
--- NOTE | 2021-04-24 14:49 | CT ---
INDICATION: Low back injury. Fell. TECHNIQUE: Volumetric helical scanning of the lumbar spine was performed without contrast material. Sagittal and coronal reconstructions were also obtained. COMPARISON: Today`s thoracic spine CT. FINDINGS: There is acute near-anatomically aligned oblique fracture through the L2 spinous process. Acute near-anatomically aligned fractures of osteophytes along the anterior inferior margin of the L2 vertebral body are also demonstrated. No other acute fracture is demonstrated. Multilevel degenerative changes are noted. A degenerative 2 mm L2 retrolisthesis is noted. No curvature abnormality is evident. IMPRESSION: 1. Acute near-anatomically aligned oblique fracture through the L2 spinous process and acute near-anatomically aligned fractures of osteophytes along the anterior inferior margin of the L2 vertebral body. No other acute traumatic abnormality evident. 2. Multilevel degenerative changes and degenerative 2 mm L2 retrolisthesis. Please note that all CT scans at this facility use dose modulation, iterative reconstruction, and/or weight-based dosing when appropriate to reduce radiation dose to as low as reasonably achievable. Dictated by Jerome Wright MD @ 04/24/2021 2:48:23 PM (Electronically Signed)
[2021-04-24 15:47] VITALS: BP 124/61; PULSE 57
== END 2021-04-24 15:48 | disposition home or self-care (01) ==
LOC: MW.ED 13:28
DX: S32.029A Unspecified fracture of second lumbar vertebra, initial encounter for closed fracture (principal); I48.91 Unspecified atrial fibrillation; I25.10 Atherosclerotic heart disease of native coronary artery without angina pectoris; E78.00 Pure hypercholesterolemia, unspecified; I10 Essential (primary) hypertension; I25.2 Old myocardial infarction; K21.9 Gastro-esophageal reflux disease without esophagitis; E11.9 Type 2 diabetes mellitus without complications; E66.9 Obesity, unspecified; Z79.02 Long term (current) use of antithrombotics/antiplatelets; Z79.82 Long term (current) use of aspirin; Z79.4 Long term (current) use of insulin; Z79.899 Other long term (current) drug therapy; Z88.8 Allergy status to other drugs, medicaments and biological substances; W01.0XXA Fall on same level from slipping, tripping and stumbling without subsequent striking against object, initial encounter; Z68.38 Body mass index [BMI] 38.0-38.9, adult
CPT/HCPCS: 70450; 70450-26; 72125; 72125-26; 72128; 72128-26; 72131; 72131-26; 99284-25

== ENCOUNTER 2021-12-14 15:54 | Emergency (ER) | payer MEDICARE, OTHER ==
[2021-12-14] MEDS ORDERED: Enoxaparin 100 MG/1 ML Syringe SUBCUT ONE (18:03)
[2021-12-14 19:36] VITALS: BP 147/55; PULSE 49
== END 2021-12-14 18:40 | disposition home or self-care (01) ==
LOC: MW.ED 15:54
DX: G89.29 Other chronic pain (principal); M79.672 Pain in left foot; M79.89 Other specified soft tissue disorders; I25.10 Atherosclerotic heart disease of native coronary artery without angina pectoris; E78.00 Pure hypercholesterolemia, unspecified; I25.2 Old myocardial infarction; I10 Essential (primary) hypertension; E11.9 Type 2 diabetes mellitus without complications; E66.9 Obesity, unspecified; Z68.41 Body mass index [BMI] 40.0-44.9, adult; Z88.1 Allergy status to other antibiotic agents; Z79.899 Other long term (current) drug therapy; Z79.82 Long term (current) use of aspirin; Z79.4 Long term (current) use of insulin; Z86.16 Personal history of COVID-19
CPT/HCPCS: 36415; 73600-26-LT; 73600-LT; 73620-26-LT; 73620-LT; 85379; 99283

== ENCOUNTER 2024-01-29 19:29 | Emergency (ER) | payer OTHER, MEDICARE ==
[2024-01-29 19:38] LABS: BASOPHILS ABSOLUTE AUTO 0.02 K/uL (0.00-0.20); BASOPHILS PERCENT AUTO 0.2 % (0.0-1.0); EOSINOPHILS ABSOLUTE AUTO 0.28 K/uL (0.00-0.45); EOSINOPHILS PERCENT AUTO 2.4 % (0.0-6.0); HEMATOCRIT 40.9 % (42.0-52.0); HEMOGLOBIN 13.7 g/dL (14.0-18.0); IMMATURE GRAN ABSOLUTE AUTO 0.03 K/uL (0.00-0.05); IMMATURE GRAN PERCENT AUTO 0.3 % (0.0-0.4); LYMPHOCYTES ABSOLUTE AUTO 4.66 K/uL (1.00-4.80); LYMPHOCYTES PERCENT AUTO 39.6 % (24.0-44.0); MEAN CORPUSCULAR HEMOGLOBIN 30.2 pg (28.0-32.0); MEAN CORPUSCULAR HGB CONC 33.5 g/dL (32.0-36.0); MEAN CORPUSCULAR VOLUME 90.3 fL (83.0-99.0); MEAN PLATELET VOLUME 9.5 fL (9.4-12.4); MONOCYTES ABSOLUTE AUTO 0.98 K/uL (0.00-0.80); MONOCYTES PERCENT AUTO 8.3 % (0.0-8.0); NEUTROPHILS ABSOLUTE AUTO 5.79 K/uL (1.80-7.70); NEUTROPHILS PERCENT AUTO 49.2 % (41.0-71.0); PLATELET COUNT,PLT 221 K/uL (150-400); RED BLOOD CELL COUNT 4.53 M/uL (4.52-5.90); WHITE BLOOD CELL COUNT,WBC 11.76 K/uL (3.9-11.3)
[2024-01-29 20:02] LABS: A/G RATIO 0.9 (0.9-1.6); ALANINE AMINOTRANSFERASE,ALT 30 IU/L (14-63); ALBUMIN 3.4 g/dL (3.4-5.0); ALKALINE PHOSPHATASE 68 U/L (46-116); ASPARTATE AMNIOTRANSFERASE,AST 24 IU/L (15-37); BILIRUBIN TOTAL 0.4 mg/dL (0.2-1.0); BLOOD UREA NITROGEN,BUN 38 mg/dL (7.0-18.0); CALCIUM 9.7 mg/dL (8.5-10.1); CARBON DIOXIDE,CO2 34.6 mmol/L (21.0-32.0); CHLORIDE,CL 104 mmol/L (98-107); CREATININE 1.4 mg/dL (0.8-1.3); EST CRCL DRUG DOSING (CG) 49.74 mL/min; GLUCOSE RANDOM 80 mg/dL (74-106); POTASSIUM,K 4.9 mmol/L (3.5-5.1); PROTEIN TOTAL,TP 7.3 g/dL (6.4-8.2); SODIUM,NA 141 mmol/L (136-148)
[2024-01-29 20:05] LABS: ESTIMATED GFR 51 mL/min (>60)
[2024-01-29 20:06] LABS: ETHANOL BLOOD MEDICAL < 3.0 mg/dL
[2024-01-29] MEDS ORDERED: Sodium Chloride 154 MEQ in Dextrose 10% in Water 1,000 ML IV SCH (20:15)
[2024-01-29 20:55] LABS: APPEARANCE,URINE CLEAR; BILIRUBIN,URINE NEGATIVE (NEGATIVE); COLOR,URINE YELLOW; GLUCOSE,URINE NEGATIVE (NEGATIVE); KETONES,URINE NEGATIVE (NEGATIVE); LEUKOCYTE ESTERASE,URINE NEGATIVE (NEGATIVE); NITRITE,URINE NEGATIVE (NEGATIVE); OCCULT BLOOD,URINE NEGATIVE (NEGATIVE); PROTEIN,URINE NEGATIVE (NEGATIVE); UROBILINOGEN,URINE 0.2 EU/dL (<2.0)
[2024-01-29] MEDS ORDERED: WATER IV SCH (21:00)
[2024-01-29] MEDS ORDERED: SODIUM CHLORIDE 0.9% IV SCH (21:00)
[2024-01-29] MEDS ORDERED: DEXTROSE 10% IV SCH (21:00)
[2024-01-29 21:04] LABS: AMPHETAMINES SCREEN, URINE NEGATIVE (CUTOFF=500); BARBITURATE SCREEN,URINE NEGATIVE (CUTOFF=200); BENZODIAZEPINES SCREEN,URINE NEGATIVE (CUTOFF=150); BUPRENORPHINE SCREEN,URINE NEGATIVE (CUTOFF=10); METHADONE SCREEN, URINE NEGATIVE (CUTOFF=200); METHAMPHETAMINES SCREEN, URINE NEGATIVE (CUTOFF=500); OXYCODONE SCREEN,URINE NEGATIVE (CUT0FF=100); PCP SCREEN,URINE NEGATIVE (CUTOFF=25); THC SCREEN,URINE 20 NG/ML NEGATIVE (CUTOFF=50)
[2024-01-30 00:16] VITALS: BP 130/68; PULSE 54
== END 2024-01-30 01:05 ==
LOC: MW.ED 19:29
DX: I21.4 Non-ST elevation (NSTEMI) myocardial infarction (principal); I10 Essential (primary) hypertension; E78.00 Pure hypercholesterolemia, unspecified; I25.10 Atherosclerotic heart disease of native coronary artery without angina pectoris; K21.9 Gastro-esophageal reflux disease without esophagitis; E11.9 Type 2 diabetes mellitus without complications; E66.9 Obesity, unspecified; Z68.39 Body mass index [BMI] 39.0-39.9, adult; Z86.16 Personal history of COVID-19; Z79.899 Other long term (current) drug therapy; Z79.82 Long term (current) use of aspirin; Z79.4 Long term (current) use of insulin; Z88.8 Allergy status to other drugs, medicaments and biological substances
CPT/HCPCS: 36415; 70450; 70450-26; 70496; 70496-26; 70498; 70498-26; 71045; 71045-26; 80053; 80305-QW; 80307; 81003; 82947; 84484; 85025; 93005; 93010; 99284; 99285

== ENCOUNTER 2024-02-20 14:56 | Emergency (ER) | payer OTHER, MEDICARE ==
[2024-02-20 17:58] LABS: BASOPHILS ABSOLUTE AUTO 0.03 K/uL (0.00-0.20); BASOPHILS PERCENT AUTO 0.3 % (0.0-1.0); EOSINOPHILS ABSOLUTE AUTO 0.19 K/uL (0.00-0.45); EOSINOPHILS PERCENT AUTO 1.9 % (0.0-6.0); HEMOGLOBIN 12.3 g/dL (14.0-18.0); IMMATURE GRAN ABSOLUTE AUTO 0.03 K/uL (0.00-0.05); IMMATURE GRAN PERCENT AUTO 0.3 % (0.0-0.4); LYMPHOCYTES ABSOLUTE AUTO 3.45 K/uL (1.00-4.80); LYMPHOCYTES PERCENT AUTO 34.2 % (24.0-44.0); MEAN CORPUSCULAR HEMOGLOBIN 30.4 pg (28.0-32.0); MEAN CORPUSCULAR HGB CONC 33.2 g/dL (32.0-36.0); MEAN CORPUSCULAR VOLUME 91.6 fL (83.0-99.0); MEAN PLATELET VOLUME 9.6 fL (9.4-12.4); MONOCYTES ABSOLUTE AUTO 0.85 K/uL (0.00-0.80); MONOCYTES PERCENT AUTO 8.4 % (0.0-8.0); NEUTROPHILS ABSOLUTE AUTO 5.53 K/uL (1.80-7.70); NEUTROPHILS PERCENT AUTO 54.9 % (41.0-71.0); PLATELET COUNT,PLT 252 K/uL (150-400); RED BLOOD CELL COUNT 4.04 M/uL (4.52-5.90); WHITE BLOOD CELL COUNT,WBC 10.08 K/uL (3.9-11.3)
[2024-02-20 18:41] LABS: A/G RATIO 0.8 (0.9-1.6); ALBUMIN 3.1 g/dL (3.4-5.0); BILIRUBIN TOTAL 0.3 mg/dL (0.2-1.0); CALCIUM 9.1 mg/dL (8.5-10.1); CREATININE 1.4 mg/dL (0.8-1.3); EST CRCL DRUG DOSING (CG) 49.74 mL/min; POTASSIUM,K 4.6 mmol/L (3.5-5.1)
[2024-02-20 19:19] VITALS: BP 142/62; PULSE 50
== END 2024-02-20 19:19 | disposition home or self-care (01) ==
LOC: MW.ED 14:56
DX: M25.561 Pain in right knee (principal); I48.91 Unspecified atrial fibrillation; I25.10 Atherosclerotic heart disease of native coronary artery without angina pectoris; E78.00 Pure hypercholesterolemia, unspecified; I10 Essential (primary) hypertension; I25.2 Old myocardial infarction; Z95.5 Presence of coronary angioplasty implant and graft; E11.40 Type 2 diabetes mellitus with diabetic neuropathy, unspecified; E66.9 Obesity, unspecified; Z68.38 Body mass index [BMI] 38.0-38.9, adult; Z79.82 Long term (current) use of aspirin; Z79.4 Long term (current) use of insulin; Z79.899 Other long term (current) drug therapy; Z88.1 Allergy status to other antibiotic agents; Z75.8 Other problems related to medical facilities and other health care
CPT/HCPCS: 36415; 71045; 71045-26; 80053; 83880; 85025; 93971-26-RT; 93971-RT; 99284

== ENCOUNTER 2025-03-29 20:59 | Emergency (ER) | payer OTHER ==
[2025-03-29 21:14] VITALS: BP 160/72
[2025-03-29] MEDS: fentaNYL 50 MCG/ML SDV IVPUSH ONE (21:40)
[2025-03-29 21:46] LABS: BASOPHILS ABSOLUTE AUTO 0.02 K/uL (0.00-0.20); BASOPHILS PERCENT AUTO 0.2 % (0.0-1.0); EOSINOPHILS ABSOLUTE AUTO 0.20 K/uL (0.00-0.45); EOSINOPHILS PERCENT AUTO 2.2 % (0.0-6.0); IMMATURE GRAN ABSOLUTE AUTO 0.03 K/uL (0.00-0.05); IMMATURE GRAN PERCENT AUTO 0.3 % (0.0-0.4); LYMPHOCYTES ABSOLUTE AUTO 2.71 K/uL (1.00-4.80); LYMPHOCYTES PERCENT AUTO 30.0 % (24.0-44.0); MEAN PLATELET VOLUME 9.3 fL (9.4-12.4); MONOCYTES ABSOLUTE AUTO 0.72 K/uL (0.00-0.80); MONOCYTES PERCENT AUTO 8.0 % (0.0-8.0); NEUTROPHILS ABSOLUTE AUTO 5.36 K/uL (1.80-7.70); NEUTROPHILS PERCENT AUTO 59.3 % (41.0-71.0); NRBC ABSOLUTE 0.00 K/uL (0.00-0.02); NRBC PERCENT 0.0 /100WBC (0.0-0.2); PLATELET COUNT,PLT 265 K/uL (150-400); RED BLOOD CELL COUNT 4.47 M/uL (4.52-5.90); WHITE BLOOD CELL COUNT,WBC 9.04 K/uL (3.9-11.3)
[2025-03-29 22:24] LABS: A/G RATIO 0.7 (0.9-1.6); ALANINE AMINOTRANSFERASE,ALT 26.0 IU/L (14-63); ASPARTATE AMNIOTRANSFERASE,AST 30.0 IU/L (15-37); BILIRUBIN TOTAL 0.3 mg/dL (0.2-1.0); BLOOD UREA NITROGEN,BUN 33.0 mg/dL (7.0-18.0); CARBON DIOXIDE,CO2 27.7 mmol/L (21.0-32.0); CHLORIDE,CL 100.0 mmol/L (98-107); CREATININE 1.6 mg/dL (0.8-1.3); EST CRCL DRUG DOSING (CG) 41.61 mL/min; ESTIMATED GFR 43.0 mL/min (>60); GLUCOSE RANDOM 248.0 mg/dL (74-106); POTASSIUM,K 4.7 mmol/L (3.5-5.1); PROTEIN TOTAL,TP 7.8 g/dL (6.4-8.2); SODIUM,NA 135.0 mmol/L (136-148)
[2025-03-29] MEDS: Lidocaine 1% with EPINEPHrine 1:100,000 10 ML MDV INJECT ONE (22:35)
[2025-03-29] MEDS: Iopamidol 755 MG/ML 500 ML Multipack Bottle IVPUSH STA (22:46)
[2025-03-29] MEDS: Diphtheria,Pertussis(Acell),Tetanus Vaccine 0.5 ML Syringe IM ONE (23:22)
[2025-03-30 00:11] VITALS: PULSE 75
== END 2025-03-30 00:10 | disposition home or self-care (01) ==
LOC: MW.ED 20:59
DX: S01.01XA Laceration without foreign body of scalp, initial encounter (principal); R59.0 Localized enlarged lymph nodes; M54.50 Low back pain, unspecified; I48.91 Unspecified atrial fibrillation; I25.10 Atherosclerotic heart disease of native coronary artery without angina pectoris; E78.00 Pure hypercholesterolemia, unspecified; I25.2 Old myocardial infarction; E66.9 Obesity, unspecified; E11.40 Type 2 diabetes mellitus with diabetic neuropathy, unspecified; Z86.16 Personal history of COVID-19; Z23 Encounter for immunization; K21.9 Gastro-esophageal reflux disease without esophagitis; Z79.82 Long term (current) use of aspirin; Z79.899 Other long term (current) drug therapy; Z88.1 Allergy status to other antibiotic agents; W01.198A Fall on same level from slipping, tripping and stumbling with subsequent striking against other object, initial encounter; Z68.39 Body mass index [BMI] 39.0-39.9, adult
CPT/HCPCS: 12004; 36415; 70450; 71260; 72125; 74177; 80053; 85025; 90471; 90715; 99284; J2004; Q9967